=== PATIENT | male | born 1955 | race Caucasian/White ===

== ENCOUNTER → 2019-04-03 14:16 | Outpatient (CLI) | payer OTHER, SELFPAY ==
--- NOTE | 2019-04-03 | DI.RAD.S_ITS ---
PROCEDURE: XR KNEE RT 3V INDICATIONS: M25.561 TECHNIQUE: 3 views of the knee were acquired. COMPARISON: None. FINDINGS: Bones: No fractures or dislocations. No suspicious bony lesions. Mild joint space narrowing and osteophytosis. Soft tissues: Small joint effusion. No suspicious soft tissue calcifications. IMPRESSION: Mild osteoarthritis of the right knee. Small joint effusion. Dictated by: Roberto Rojas M.D. on 04/03/2019 at 15:59 Approved by: Roberto Rojas M.D. on 04/03/2019 at 16:00
== END ==
PROVIDERS: PCP Family Medicine; Referring Provider Family Medicine; Visit Provider Family Medicine
DX: M25.561 Pain in right knee (principal); M17.11 Unilateral primary osteoarthritis, right knee; M25.461 Effusion, right knee
CPT/HCPCS: 73562

== ENCOUNTER → 2019-04-28 06:57 | Outpatient (CLI) | payer OTHER, SELFPAY ==
--- NOTE | 2019-04-28 | DI.CT.S_ITS ---
PROCEDURE: CT ABDOMEN PELVIS W CON INDICATIONS: Unspecified abdominal pain TECHNIQUE: After the administration of oral and intravenous contrast, 5 mm thick sections acquired from the diaphragms to the symphysis. 5 mm thick coronal and sagittal reformats were performed. For radiation dose reduction, the following was used: automated exposure control, adjustment of mA and/or kV according to patient size. COMPARISON: [facility], , ABDOMEN COMPLETE, 06/10/2011, 14:01. FINDINGS: Image quality: Excellent. ABDOMEN: Lung bases: Lung bases are clear. Heart size is normal. Solid organs: Liver is normal in size and enhancement. Gallbladder appears normal. Biliary system is non-dilated. Pancreas enhances normally. Spleen is normal in size and enhancement. No adrenal nodules. Kidneys are normal in size and enhancement, without hydronephrosis. There is a 4 cm dominant left mid posterior renal cortical exophytic cyst. This is simple in character and water in density and requires no followup. Peritoneum and bowel: Stomach, small bowel, and colon loops are normal in caliber and wall thickness. No free fluid or air. Nodes and vessels: No retroperitoneal or mesenteric adenopathy. Aorta and inferior vena cava are normal in caliber. Miscellaneous: No ventral hernias. PELVIS: Genitourinary: Bladder wall thickness is normal. Miscellaneous: No inguinal hernias or adenopathy. Prominent sigmoid diverticulosis without definite acute diverticulitis. There is mild mural thickening of the colon, frequently seen in the setting of extensive diverticulosis. Mild colitis cannot be entirely excluded. Bones: No suspicious bony lesions. No vertebral body compression fractures. IMPRESSION: 1. Prominent diverticulosis involving the sigmoid colon and to a lesser degree the descending colon. Mild colonic wall thickening, frequently seen in the setting of chronic extensive diverticulosis but no definite acute diverticulitis is seen. Mild colitis could be superimposed-please correlate clinically. 2. Water density simple appearing 4 cm exophytic left renal cortical cyst requiring no followup. Dictated by: Ventura Avila M.D. on 04/28/2019 at 12:21 Approved by: Ventura Avila M.D. on 04/28/2019 at 12:24
== END ==
PROVIDERS: PCP Family Medicine; Referring Provider Family Medicine; Visit Provider Family Medicine
DX: R10.9 Unspecified abdominal pain (principal); K57.30 Diverticulosis of large intestine without perforation or abscess without bleeding; N28.1 Cyst of kidney, acquired
CPT/HCPCS: 74177; Q9967

== ENCOUNTER → 2019-10-16 08:09 | Outpatient (CLI) | payer OTHER, SELFPAY ==
[2019-10-17 03:52] LABS: COVID19 Sendout Not Detected (Not Detect)
== END ==
PROVIDERS: PCP Family Medicine; Visit Provider Physician Assistant
DX: Z11.59 Encounter for screening for other viral diseases (principal)
CPT/HCPCS: 87635

== ENCOUNTER 2019-10-19 06:32 | Day surgery (SDC) | payer OTHER, SELFPAY ==
--- NOTE | 2019-10-19 | PATH_ITS ---
[facility] Accession Number: [id number] . 01 Material submitted: . PART A: body - POLYPS AT 15CM PART B: rectum - RECTUM URANUS POLYP . 01 Clinical history: . A: POLYPS AT 15CM X3 . 02 Diagnosis: A. Colon, Polyps at 15 cm, Biopsy: Hyperplastic polyps. . B. Rectum, Polyp, Biopsy: Tubular adenoma. MRV 10/23/2019 0935 Local . 02 Electronically signed: . Tonya Rendon MD, Pathologist NPI- [id number] . 01 Gross description: . A. Received in formalin, labeled with the patient's name, MRN and polyps at 15 cm, are multiple robison-pink irregular fragments of tissue ranging in size from 0.1 cm to 0.6 cm in greatest dimension. The specimen is filtered and entirely submitted in cassette A1. B. Received in formalin, labeled with the patient's name, MRN and rectal near anus polyp, is a 0.6 cm in greatest dimension robison-pink irregular fragment of tissue. The specimen is entirely submitted in cassette B1. ([id number]) /MRV 10/20/2019 1336 Local . 02 Pathologist provided ICD-10: D12.8 . 02 CPT . 690031, [id number] Performed at: 01 [facility] [address] [facility], [place], [place] [id number] MD Jason Zafar MD Phone: [phone] Performed at: 02 [facility] [address] [place], [place] [id number] MD Tonya Rendon MD Phone: [phone]
[2019-10-19 07:11] VITALS: BP 152/105; PULSE 103; RESP 16; TEMP 36.8; O2SAT 95; BMI 28.5
[2019-10-19] MEDS: LACTATED RINGERS 1,000 ML 200 ML IV (07:20)
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
[2019-10-19 07:43] VITALS: BP 167/110; PULSE 92; O2SAT 96
--- NOTE | 2019-10-19 07:43 | SUR.PREOP ---
Enema given, due to small pieces of stool, output after, dark brown but clear. Dr. Lynch aware, did not want 2nd enema. Pt up to BR seconf time, flushed but stated output was the same. BP and HR high doctor is aware of that as well.
[2019-10-19] MEDS: MINERAL OIL 1 EACH ENEMA PR (07:48)
--- NOTE | 2019-10-19 07:53 | PM.PREOP ---
Pre-operative Note COVID-19 COVID-19 status: Negative Result date/Date tested (Pos, Neg/Pending): 10/16/19 Interval Note History & Physical reviewed/Exam performed by Physician: Yes Changes to H&P: No ASA Class (for procedural sedation): I
[2019-10-19] MEDS: fentaNYL 250 MCG/5 ML INJ IV ×6 (08:00→08:11)
[2019-10-19] MEDS: MIDAZOLAM 5 MG/5 ML VIAL IV ×7 (08:00→08:14)
[2019-10-19 08:46] VITALS: BP 185/112; PULSE 100; RESP 20; TEMP 36.9; O2SAT 95
--- NOTE | 2019-10-19 08:46 | P.OP.ENDO_ITS ---
Operative Date/Time/Diagnoses Date of procedure: 10/19/19 Time of procedure: 08:47 Pre-op diagnosis: History of diverticulitis. History of rectal bleeding. Post-op diagnosis: same (Multiple small polyps in the rectosigmoid. Extensive diverticulosis. No tumor.) Procedure & Clinicians Study performed: Colonoscopy with cold biopsy Same procedure as scheduled: Yes Indications: Rectal bleeding. Recent History of diverticulitis. Surgeon: Armin Lynch Procedure Notes SCOAP/Timeout: Performed Procedure in detail: The patient was placed in the left lateral decubitus position and underwent IV sedation directed by the surgeon consisting of fentanyl and Versed. Digital exam was unremarkable. His prostate is flat.. The scope was inserted and advanced through the rectum into the sigmoid, descending, transverse, and ascending colon. There was extensive diverticulosis of the sigmoid colon with tortuosity in mild narrowing. I also noted right- sided diverticulosis.. The cecum was reached identified by the ileocecal valve. The scope was gradually brought out. Multiple very small Polyps were found at the rectosigmoid region at about 15 cm from the anal verge. There was also a small polyp on retroflexed view near the anus which I biopsied and removed.. No other lesions were seen it the retroflexed view. The scope was removed and the patient tolerated the procedure well. Prep was good. Scope withdrawal time: 12 minutes(21 total) Sedation minutes: 43 Findings: diverticulosis (Pancolonic with very extensive disease in the sigmoid colon) and polyp (Multiple very small polypoid lesions at the rectosigmoid and 1 near the anal verge.) Specimen(s): other (Biopsy of polyps) Complications: none Post-procedure Recommendations: Colonscopy in 5 years (If none of the biopsies are adenomatous 10 years would be more appropriate.) and High fiber diet Follow up: as needed Disposition: PACU
[2019-10-19 08:51] VITALS: BP 160/112; PULSE 95; RESP 16; O2SAT 96
[2019-10-19 08:58] VITALS: BP 173/104; PULSE 93; RESP 19; TEMP 37.1; O2SAT 94
--- NOTE | 2019-10-19 09:18 | SUR.PHASEII ---
brought in, d/c instructions discussed, both voiced an understanding. Pt left when ready and left in stable condition.
--- NOTE | 2019-10-19 10:49 | SUR.PHASEII ---
Late entry: Pt's BP high on admit, and while here for exam, instructed pt to take BP and log results and take to his PCP appt he has scheduled for in October.
== END 2019-10-19 09:17 | disposition home or self-care (01) ==
PROVIDERS: PCP Family Medicine; Referring Provider Family Medicine; Visit Provider Specialist
PROC: 0DJD8ZZ Inspection of Lower Intestinal Tract, Via Natural or Artificial Opening Endoscopic (ICD-10-PCS; CPT 45378; principal; 2019-10-19 07:45)
DX: K62.5 Hemorrhage of anus and rectum (principal); K57.30 Diverticulosis of large intestine without perforation or abscess without bleeding; D12.8 Benign neoplasm of rectum; Z72.0 Tobacco use; E03.9 Hypothyroidism, unspecified; M35.3 Polymyalgia rheumatica
CPT/HCPCS: 45380; 99152; 99153; J2250; J3010

== ENCOUNTER → 2019-12-21 10:11 | Outpatient (CLI) | payer OTHER, SELFPAY | PROVIDERS: PCP Family Medicine; Referring Provider Family Medicine; Visit Provider Family Medicine | DX: M81.0 Age-related osteoporosis without current pathological fracture (principal); E07.9 Disorder of thyroid, unspecified; Z72.0 Tobacco use | CPT/HCPCS: 77080 ==

== ENCOUNTER → 2020-05-13 11:14 | Outpatient (CLI) | payer OTHER, SELFPAY ==
[2020-05-13] MEDS: COVID-19 VACC, Ad26(JANSSEN)/PF 0.5 ML IM (11:27)
== END ==
PROVIDERS: PCP Family Medicine; Visit Provider Internal Medicine
DX: Z23 Encounter for immunization (principal)
CPT/HCPCS: 0031A; 91303

== ENCOUNTER → 2021-01-03 14:52 | Outpatient (CLI) | payer OTHER, SELFPAY ==
[2021-01-03] MEDS: COVID-19 VACC #3, MRNA(MOD) 50 MCG/0.25 ML VIAL IM (14:56)
== END ==
PROVIDERS: PCP Family Medicine; Visit Provider Internal Medicine
DX: Z23 Encounter for immunization (principal)
CPT/HCPCS: 0013A; 91301

== ENCOUNTER 2021-02-19 05:31 | Observation (INO) | payer OTHER, SELFPAY ==
[2021-02-19] VITALS (35 sets, daily range): BP systolic 142–193; BP diastolic 85–122; PULSE 61–114; RESP 9–29; TEMP 36.6–37.1; O2SAT 92–99; BMI 25.7; BMI 27.0
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
--- NOTE | 2021-02-19 05:48 | DI.RAD.S_ITS ---
PROCEDURE: XR KNEE RT 3V INDICATIONS: pain TECHNIQUE: 3 views of the knee were acquired. COMPARISON: [facility], CR, XR KNEE RT 3V, 04/03/2019, 14:16. FINDINGS: Bones: No fractures or dislocations. No suspicious bony lesions. Tricompartmental osteoarthritis. Soft tissues: Small nonspecific joint effusion. No suspicious soft tissue calcifications. IMPRESSION: No fracture. No acute osseous lesion. If symptoms and/or clinical suspicion for pathology persists, further assessment with repeat radiographs (7-10 days) or advanced imaging (e.g. CT, MRI or bone scan) should be considered. Dictated by: Nancy Turner MD, PhD on 02/19/2021 at 8:27 Approved by: Nancy Turner MD, PhD on 02/19/2021 at 8:27
[2021-02-19] MEDS: SODIUM CHLORIDE 0.9% 1,000 ML 150 ML IV (06:06)
[2021-02-19 06:08] LABS: Add Manual Diff / Slide Review NO; Basophils Absolute Auto 0 /uL (0-100); Basophils Percent Auto 0.3 % (0-2); Eosinophils Absolute Auto 100 /uL (0-450); Eosinophils Percent Auto 1.4 % (2-4); Hematocrit 44.1 % (41-53); Hemoglobin 15.3 g/dL (13.5-17.5); Lymphocytes Absolute Auto 700 /uL (1100-4500); Lymphocytes Percent Auto 7.6 % (25-40); Mean Corpuscular HGB Conc 34.7 % (30-36); Mean Corpuscular Hemoglobin 31.8 PG (26-34); Mean Corpuscular Volume 91.7 fL (80-100); Monocytes Absolute Auto 600 /uL (0-900); Monocytes Percent Auto 7.2 % (3-14); Neutrophils Absolute Auto 7400 /uL (1500-7000); Neutrophils Percent Auto 83.5 % (50-75); Platelet Count 313 X10^3/uL (150-400); Red Blood Cell Count 4.81 X10^6/uL (4.5-5.9); Red Cell Distribution Width 12.9 % (11.6-14.8); White Blood Cell Count 8.9 X10^3/uL (4.5-11.0)
[2021-02-19 06:19] LABS: Creatine Kinase 139 U/L (55-170)
[2021-02-19 06:20] LABS: Lactate (Lactic Acid) 1.1 mmol/L (0.7-2.1)
[2021-02-19 06:22] LABS: Acetaminophen < 10 ug/mL (10-30); Alanine Aminotransferase 18 IU/L (<50); Albumin 4.7 g/dL (3.5-5.0); Albumin Globulin Ratio 1.5 (1.0-2.8); Alkaline Phosphatase 92 U/L (38-126); Aspartate Aminotransferase 21 IU/L (17-59); BUN Creatinine Ratio 30.2 (6-22); Bilirubin Total 0.5 mg/dL (0.2-1.3); Blood Urea Nitrogen 29 mg/dL (9-20); Calcium 9.6 mg/dL (8.4-10.2); Carbon Dioxide 21 mmol/L (22-32); Chloride 109 mmol/L (98-107); Estimated Glomerular Filt Rate > 60.0 mL/min (>60); Ethanol (ETOH) < 10 mg/dL; Globulin 3.1 g/dL (1.7-4.1); Glucose 146 mg/dL (80-110); HEMOLYSIS < 15 (0-50); Potassium 3.6 mmol/L (3.4-5.1); Salicylate < 1.0 mg/dL (<20); Sodium 139 mmol/L (137-145); Total Protein 7.8 g/dL (6.3-8.2)
[2021-02-19 06:33] LABS: Troponin I < 0.012 ng/mL (0.01-0.034)
[2021-02-19 06:35] LABS: CKMB % Relative Index 0.5 % (1.5-5.0); Creatine Kinase MB 0.64 ng/mL (<2.37)
[2021-02-19 06:37] LABS: Procalcitonin 0.06 ng/mL (<0.5)
[2021-02-19 06:38] LABS: Prolactin 12.2 ng/mL (3.7-17.9)
[2021-02-19 06:58] LABS: Thyroid Stimulating Hormone 12.4 uIU/mL (0.47-4.68)
[2021-02-19 07:15] LABS: Appearance Urine UA CLEAR; Bilirubin Urine UA NEGATIVE (NEGATIVE); Color Urine UA YELLOW; Glucose Urine UA TRACE g/dL (Negative); Ketones Urine UA NEGATIVE (NEGATIVE); Leukocyte Esterase Urine UA NEGATIVE (NEGATIVE); Nitrite Urine UA NEGATIVE (Negative); Occult Blood Urine UA 1+ (Negative); Protein Urine UA 2+ (Negative); Specific Gravity Urine UA >=1.030 (1.000-1.035); Urobilinogen Urine UA 0.2 E.U./dL (0.2)
[2021-02-19 07:21] LABS: UR Morphine/Opiate cutoff 300 Negative (Negative); Ur Creatinine Normal (Normal); Ur Specific Gravity Normal (Normal); Urine Amphetamines Negative (Negative); Urine Barbiturates Negative (Negative); Urine Benzodiazepines Negative (Negative); Urine Cocaine Negative (Negative); Urine MDMA Negative (Negative); Urine Methadone Negative (Negative); Urine Methamphetamines Negative (Negative); Urine Oxycodone Negative (Negative); Urine Phencyclidine Negative (Negative); Urine Tetrahydrocannabinol Negative (Negative); Urine Tricyclic Antidepressant Negative (Negative); Urine pH Normal (Normal)
[2021-02-19 07:35] LABS: Bacteria Urine Occasional (0-1); Culture Indicated Urine Cult Not Indicated; Hyaline Casts Urine 0-1/LPF; RBC Urine 0-1/HPF (0-5/HPF); WBC Urine 0-1/HPF (0-5/HPF)
--- NOTE | 2021-02-19 07:51 | DI.CT.S_ITS ---
PROCEDURE: CT ANGIO HEAD AND NECK INDICATIONS: acute neurologic changes, gait unsteady, acute onset TECHNIQUE: After the administration of intravenous contrast, 1 mm thick sections acquired from the aortic arch through the [place]. Post-contrast 4.5 mm thick sections then re-acquired from the foramen magnum to the vertex. 3-dimensional okholqi-drxtapizq-wujuhqlusa (MIP) and/or volume rendering reformats were acquired of the central intracranial vasculature and neck separately. COMPARISON: [facility], CT, CT HEAD/BRAIN WO CON, 02/19/2021, 5:46. FINDINGS: Image quality: Excellent. BRAIN: CSF spaces: Ventricles are normal in size and shape. Basal cisterns are patent. No extra-axial fluid collections. Brain: No midline shift. No intracranial bleeds or masses. Horton-white matter interface appears intact. Skull and face: Calvarium and facial bones appear intact, without suspicious lesions. Orbits appear normal. Sinuses: Sinuses and mastoids are clear. HEAD CT ANGIOGRAPHY: Anterior circulation: There is mild diffuse calcific stenosis of the bilateral cavernous internal carotid arteries. There is mild narrowing of the right distal cavernous and proximal supraclinoid internal carotid artery. The flow within the paired anterior cerebral arteries is normal and symmetric. The flow within the middle cerebral arteries is normal and symmetric. The anterior communicating artery is seen, and appears fenestrated No aneurysms are seen. Posterior circulation: Visualized portions of the vertebral arteries demonstrate normal caliber, and join to form a normal appearing basilar artery. There is moderate narrowing of the P1 segment of the left posterior cerebral artery. Near origin of the left posterior cerebral artery. Flow within the posterior cerebral arteries is normal and symmetric. No aneurysms are seen. NECK CT ANGIOGRAPHY: Carotid system: The great vessels demonstrate a conventional anatomy as they arise from the aortic arch. The origins of the common carotid arteries appear patent. The common carotid arteries demonstrate normal caliber and courses. The bifurcation regions are both widely patent. Mild, less than 10% origin stenosis of the bilateral internal carotid arteries. Posterior circulation: Moderate right and mild left vertebral artery origin stenosis is present. The more superior extracranial portions of both vertebral arteries also demonstrate normal courses and calibers. They join to form a normal appearing basilar artery. Soft tissues: Visualized neck soft tissues demonstrate no suspicious abnormalities. Bones: No suspicious bony lesions. Visualized cervical spine appears normally aligned. IMPRESSION: 1. No acute process involving the arterial tree of the head and neck. 2. Narrowing of the carotid , vertebral, and posterior cerebral arteries as described above. Any quantitative measurements of stenosis were performed using NASCET criteria. Dictated by: Golden Santana M.D. on 02/19/2021 at 8:23 Approved by: Golden Santana M.D. on 02/19/2021 at 8:29
--- NOTE | 2021-02-19 08:59 | DI.MRI.S_ITS ---
PROCEDURE: MR HEAD/BRAIN WO/W CON INDICATIONS: suspected posterior circulation stroke, hypertensive crisis TECHNIQUE: Noncontrast axial T1 spin echo, axial T2 fast spin echo, sagittal and axial FLAIR, coronal T2 fast spin echo, axial gradient echo, axial diffusion and ADC through the brain. After the administration of contrast, axial and coronal T1 spin echo with fat saturation through the brain. COMPARISON: [facility], CT, CT ANGIO HEAD AND NECK, 02/19/2021, 7:44. FINDINGS: Image quality: Excellent. CSF spaces: Basal cisterns are patent. No extra-axial fluid collections. Ventricles are normal in size and shape. Brain: No midline shift. No intracranial bleeds or masses. No abnormal intracranial enhancement. There is cerebral volume loss for age. There is periventricular white matter chronic small vessel ischemic change. The brainstem appears normal. Diffusion-weighted images demonstrate no acute ischemic insults. No chronic ischemic insults. Normal intravascular flow voids are present. Skull and face: Calvarial marrow is normal in signal. Orbits appear normal. Sinuses: Sinuses and mastoids appear clear. IMPRESSION: 1. Mild volume loss and small vessel ischemic disease. 2. No acute process. No recent infarct. Dictated by: Golden Santana M.D. on 02/19/2021 at 11:00 Approved by: Golden Santana M.D. on 02/19/2021 at 11:01
[2021-02-19] MEDS: NICARDIPINE 25 MG in SODIUM CHLORIDE 0.9% 240 ML 50 ML IV (09:18)
[2021-02-19] MEDS: HYDROCORTISONE 100 MG/2 ML VIAL IV (09:56)
[2021-02-19 10:46] LABS: COVID19 - ADMIT (NP swab/PCR) Negative (Negative)
[2021-02-19] MEDS: AMLODIPINE 5 MG TABLET PO ×2 (11:51→14:14)
[2021-02-19] MEDS: carisoprodoL 350 MG TABLET PO (12:32)
[2021-02-19] MEDS: predniSONE 5 MG TABLET 10 MG PO (12:40)
--- NOTE | 2021-02-19 13:58 | DI.ECHO.S_ITS ---
[facility] +---------+ : : [address] : [place] : : : : [id number] : : : : Phone: [phone] Echocardiogram Report + + :Name: CHUCK GROSS Study Date: 02/19/2021 Height: 71 in : [facility] ReadingLocation: Weight: 184 lb : : Gender: Male BSA: 2.0 m2 : :: 1955 Age: 65 yrs BP: 154/91 mmHg: :Reason For Study: SYNCOPE : :Ordering Physician: LOURDES, : :SHANNA Performed By: Cari Chauhan : :Referring: SHANNA FREED : + + Interpretation Summary The ejection fraction is estimated to be 55-60%. There is no significant valvular heart disease. Procedure: A two-dimensional transthoracic echocardiogram with color flow and Doppler was performed. The study quality was technically adequate. There is no prior echocardiogram noted for this patient. The patient was in sinus rhythm with heart rates between 64-74 bpm during the exam. Left Ventricle: The left ventricle is normal in size and wall thickness. The ejection fraction is estimated to be 55-60%. Left ventricular wall motion is normal. Diastolic parameters suggest a relaxation abnormality of the left ventricle, consistent with probable normal filling pressures. Right Ventricle: The right ventricle is normal in size and function. Atria: Both atria are normal in size. There is no Doppler evidence for an interatrial shunt. Mitral Valve: The mitral valve is normal in structure and function. There is trace mitral regurgitation. Aortic Valve: The aortic valve is trileaflet. The aortic valve opens well. There is no aortic valve stenosis. No aortic regurgitation is present. Tricuspid Valve: The tricuspid valve is normal in structure and function. There is trace tricuspid regurgitation. Pulmonic Valve: The pulmonic valve leaflets are thin and pliable; valve motion is normal. There is trace pulmonic regurgitation. Great Vessels: The aortic root is normal size. The ascending aorta is mildly enlarged. The IVC is dilated (diameter is greater than 2.1 cm) yet it collapses greater than 50% with a sniff. This suggests a right atrial pressure of 8 mm Hg. Pericardium/ Pleura There is no pericardial effusion. There is no pleural effusion. MMode/2D Measurements & Calculations LVIDd: 4.9 cm LVOT diam: 2.0 cm LVIDs: 3.6 cm Ao root diam: 3.3 cm FS: 27.1 % asc Aorta Diam: 3.8 cm IVSd: 1.0 cm Ao Arch Diam (Prox Trans): 3.4 cm LVPWd: 0.99 cm LV [place]. diameter/BSA (cm/m^2): 2.4 LV sys. diameter/BSA (cm/m^2): 1.7 LA A2 area: 19.0 cm2 RA long axis: 5.7 cm LA A4 area: 20.8 cm2 RA area: 21.0 cm2 LA length (vol): 6.0 cm RA vol: 65.7 ml LA vol: 56.1 ml RA : 32.3 ml/m2 LA vol index: 27.5 ml/m2 IVC diam: 2.2 cm RVD1 (basal): 3.7 cm TAPSE: 2.1 cm Doppler Measurements & Calculations Ao V2 max: 146.1 cm/sec LVOT Max Benny: 95.8 cm/sec Ao V2 mean: 102.6 cm/sec LV V1 max P.7 mmHg Ao max P.5 mmHg LV V1 VTI: 21.4 cm Ao mean P.6 mmHg TANNER(I,D): 2.2 cm2 Ao V2 VTI: 32.8 cm TANNER(V,D): 2.2 cm2 sev ratio: 0.65 TANNER indexed to BSA (cm^2/m^2): 1.1 MV E max benny: 63.0 cm/sec PA V2 max: 131.8 cm/sec MV A max benny: 68.7 cm/sec PA V2 mean: 73.8 cm/sec MV E/A: 0.92 PA mean P.8 mmHg Med Peak E' Benny: 6.5 cm/sec PA pr(Accel): 8.8 mmHg E/E' med: 9.6 Lat Peak E' Benny: 10.2 cm/sec E/E' lat: 6.2 E/e' average: 7.9 MV dec time: 0.31 sec SV(LVOT): 70.7 ml Reading Physician:09:06 AM
--- NOTE | 2021-02-19 14:08 | PC.NURSE ---
spoke w/ Dr. Britt who ordered additional 5 mg of amlodipine to complete 10 mg dose.
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
[2021-02-19] MEDS: ACETAMINOPHEN 325 MG TABLET 650 MG PO (21:44)
[2021-02-19] MEDS: buPROPion 75 MG TABLET 150 MG PO (21:44)
--- NOTE | 2021-02-19 23:01 | PC.NURSE ---
Patient reported intermittent headache, contacted Dr. Britt and received T.O. for Tylenol 650mg every 6 hours PRN, and Hydrocodone 5/325 1 tab Q6 hours PRN. Tylenol effective for headache.
[2021-02-20] VITALS: BP 127/80; PULSE 66; RESP 16; TEMP 36.9; O2SAT 95
[2021-02-20] MEDS: LEVOTHYROXINE 150 MCG TABLET PO (05:14)
[2021-02-20 05:15] VITALS: BP 139/78; PULSE 65; RESP 16; TEMP 36.8; O2SAT 94
[2021-02-20 07:22] LABS: Add Manual Diff / Slide Review NO; Basophils Absolute Auto 0 /uL (0-100); Basophils Percent Auto 0.4 % (0-2); Eosinophils Absolute Auto 200 /uL (0-450); Eosinophils Percent Auto 2.1 % (2-4); Hemoglobin 14.9 g/dL (13.5-17.5); Lymphocytes Absolute Auto 1200 /uL (1100-4500); Lymphocytes Percent Auto 15.8 % (25-40); Mean Corpuscular HGB Conc 34.7 % (30-36); Mean Corpuscular Hemoglobin 31.9 PG (26-34); Mean Corpuscular Volume 92.1 fL (80-100); Monocytes Absolute Auto 700 /uL (0-900); Monocytes Percent Auto 8.9 % (3-14); Neutrophils Absolute Auto 5600 /uL (1500-7000); Neutrophils Percent Auto 72.8 % (50-75); Platelet Count 290 X10^3/uL (150-400); Red Blood Cell Count 4.67 X10^6/uL (4.5-5.9); Red Cell Distribution Width 13.2 % (11.6-14.8); White Blood Cell Count 7.7 X10^3/uL (4.5-11.0)
[2021-02-20 07:38] LABS: Alanine Aminotransferase 16 IU/L (<50); Albumin 4.3 g/dL (3.5-5.0); Albumin Globulin Ratio 1.4 (1.0-2.8); Alkaline Phosphatase 77 U/L (38-126); Aspartate Aminotransferase 24 IU/L (17-59); BUN Creatinine Ratio 22.4 (6-22); Bilirubin Total 0.6 mg/dL (0.2-1.3); Blood Urea Nitrogen 22 mg/dL (9-20); Calcium 9.3 mg/dL (8.4-10.2); Carbon Dioxide 22 mmol/L (22-32); Chloride 107 mmol/L (98-107); Estimated Glomerular Filt Rate > 60.0 mL/min (>60); Globulin 3.1 g/dL (1.7-4.1); Glucose 101 mg/dL (80-110); HEMOLYSIS < 15 (0-50); Potassium 3.4 mmol/L (3.4-5.1); Sodium 137 mmol/L (137-145); Total Protein 7.4 g/dL (6.3-8.2)
[2021-02-20 07:56] VITALS: BP 180/95; PULSE 76; RESP 18; TEMP 36.9
[2021-02-20] MEDS: buPROPion 75 MG TABLET 150 MG PO (08:02)
[2021-02-20] MEDS: predniSONE 5 MG TABLET 10 MG PO (08:02)
[2021-02-20] MEDS: AMLODIPINE 5 MG TABLET 10 MG PO (08:03)
[2021-02-20] MEDS: ASPIRIN EC 81 MG TABLET PO (08:03)
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
[2021-02-20 08:56] VITALS: BP 147/83; PULSE 67; RESP 16; O2SAT 95
[2021-02-20] MEDS: METOPROLOL ER 50 MG TABLET PO (09:50)
[2021-02-20] MEDS: SODIUM CHLORIDE 0.9% FLUSH 10 ML IV (09:50)
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
--- NOTE | 2021-02-20 10:37 | OT.IP.TRT ---
Occupational Therapy Treatment Note M2 OT-IP Current Condition Start: 02/20/21 10:30 Freq: Status: Active Protocol: Document 02/20/21 10:30 [facility] (Rec: 02/20/21 10:37 [facility] [id number]) Occupational Therapy Current Condition Current Condition Treatment Diagnosis TIA Diagnosis Onset Date 02/19/21 M3 OT- IP Subjective and Pain Start: 02/20/21 10:30 Freq: Status: Active Protocol: Document 02/20/21 10:30 [facility] (Rec: 02/20/21 10:37 [facility] [id number]) OT- Subjective Occupational Therapy Visit Type Type Treatment Note Visit Start Time 10:15 Visit Stop Time 10:24 Total Visit Minutes 9 Occupational Therapy Visit Comments Patient Comments Pt feels back to baseline. Pt agreed to do cognitive assessment. Patient/Caregiver Goals TO go home. OT Pain Assessment Pain When Pain Assessed At Rest Pain Present Pain Present Denied Pain M6 OT- IP Functional Cognition Start: 02/20/21 10:30 Freq: Status: Active Protocol: Document 02/20/21 10:30 [facility] (Rec: 02/20/21 10:37 [facility] [id number]) Cognitive Factors Limiting Selfcare Function Cognitive Ability Level of Alertness Alert Patient Orientation Name,Age,Birthday,Month,Date, Year,Day of Week,Place, Situation Attention Span Ability Capable of Focused Attention, Capable of Sustained Attention Ability to Follow Commands Able to Follow Multi-Step Commands Memory Description No Deficits Noted Safety Awareness No Deficits Noted Problem Solving Ability No deficits Noted Executive Function Ability No Deficits Noted Cognitive Comments Cognitive Assessment Comments Pt scored 68 seconds on [place] Making Part B which implies normal but not perfect for speed of processing, task switching, mental flexibility, executive functioning, and visual attention. Pt intact for cognitive needs. M7 OT- IP Mobility and Balance Start: 02/20/21 10:30 Freq: Status: Active Protocol: Document 02/20/21 10:30 [facility] (Rec: 02/20/21 10:37 [facility] [id number]) OT- Balance Assessment Sitting Balance and Reactions Static Sitting Balance Ability Normal Dynamic Sitting Balance Ability Normal Standing Balance and Reactions Static Standing Balance Ability Normal Pt appears back to baseline for needs and has good safety awareness to sit for LB dressing needs as needed. Pt states to start using pill organizer and write down his medications for now on. In addition pt states to have his present with him before driving again. Pt has a supportive to assist pt at home. Pt to go home with his when medically stable. No further OT needs, discharge pt from OT services.
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
[2021-02-20] MEDS: POTASSIUM CHLORIDE 20 MEQ TAB 40 MEQ PO (12:05)
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
== END 2021-02-20 15:00 | disposition home or self-care (01) ==
LOC: ED 09:49 → AC 11:36
PROVIDERS: Emergency Medicine; Admitting Provider Family Medicine; Emergency Provider Emergency Medicine; PCP Family Medicine; Referring Provider Emergency Medicine; Visit Provider Family Medicine
DX: M79.661 Pain in right lower leg (principal); M35.3 Polymyalgia rheumatica; I10 Essential (primary) hypertension; E03.9 Hypothyroidism, unspecified; I16.9 Hypertensive crisis, unspecified; F17.210 Nicotine dependence, cigarettes, uncomplicated; V48.0XXA Car driver injured in noncollision transport accident in nontraffic accident, initial encounter; Y92.410 Unspecified street and highway as the place of occurrence of the external cause; Z20.822 Contact with and (suspected) exposure to COVID-19
CPT/HCPCS: 36415; 70450; 70496; 70498; 70553; 71045; 72125; 73562; 74177; 80053; 80305; 80320; 80329; 81001; 81003; 82550; 82553; 83605; 84145; 84146; 84443; 84484; 85025; 87040; 87635; 93005; 93306; 96361; 96365; 96366; 96375; 97129; 97161; 97530; 99285; C9803; G0378; G0480; J1720

== ENCOUNTER → 2021-03-21 15:59 | Outpatient (CLI) | payer OTHER, SELFPAY ==
[2021-02-19 15:15] VITALS: BMI 27.0
--- NOTE | 2021-03-21 | DI.RAD.S_ITS ---
PROCEDURE: XR CHEST 2V INDICATIONS: COUGH TECHNIQUE: 2 views of the chest were acquired. COMPARISON: [facility], CR, XR CHEST 1V, 02/19/2021, 5:31. FINDINGS: Surgical changes and devices: None. Lungs and pleura: Mildly prominent interstitial markings. No consolidation, pleural effusions or pneumothorax. Mediastinum: Mediastinal contours are normal. The cardiac silhouette is upper limits of normal. Bones and chest wall: No suspicious bony abnormalities. Soft tissues appear unremarkable. IMPRESSION: Mildly prominent interstitial markings, which may reflect chronic change or pulmonary edema. Dictated by: Carson Shea [facility] Interpreted: Chucho Callahan MD on 03/21/2021 at 16:15 Transcribed by: PRESLEY on 03/21/2021 at 16:16 Approved by: Chucho Callahan M.D. on 03/21/2021 at 19:58
== END ==
PROVIDERS: PCP Family Medicine; Referring Provider Family Medicine; Visit Provider Family Medicine
DX: R05.9 Cough, unspecified (principal)
CPT/HCPCS: 71046

== ENCOUNTER → 2021-04-16 12:24 | Outpatient (CLI) | payer OTHER, SELFPAY ==
[2021-02-19 15:15] VITALS: BMI 27.0
--- NOTE | 2021-04-16 12:36 | DI.CT.S_ITS ---
PROCEDURE: CT CHEST W CON INDICATIONS: Chronic cough TECHNIQUE: After the administration of intravenous contrast, 5 mm thick sections acquired from the pulmonary apices to the posterior costophrenic angles. 1 mm axial lung, 5 mm thick coronal and sagittal reformats and 7 mm axial MIP were acquired. For radiation dose reduction, the following was used: automated exposure control, adjustment of mA and/or kV according to patient size. COMPARISON: [facility], CR, XR CHEST 2V, 03/21/2021, 15:52. [facility], CT, CT ABDOMEN PELVIS W CON, 02/20/2021, 8:32. FINDINGS: Image quality: Excellent. Lungs and pleura: Biapical scarring is seen. A few scattered scarring/atelectasis in periphery of bilateral lung antoine are seen. No acute air space opacities. No pleural effusions or pneumothorax. Central and peripheral airways are patent and normal in caliber. Mediastinum: Heart size is normal. No pericardial effusion. No mediastinal or hilar adenopathy by size criteria. Thoracic aorta and central pulmonary arteries are normal in size. Esophagus is normal in caliber. No hiatal hernia. Bones and chest wall: No suspicious bony lesions. No vertebral body compression fractures. No axillary or supraclavicular adenopathy by size criteria. Thyroid gland is within normal limits. Abdomen: Visualized upper abdominal solid organs appear normal. Upper abdominal bowel loops are normal in caliber. IMPRESSION: 1. Biapical scarring. Scattered scarring/atelectasis in periphery of bilateral lung antoine. No focal infiltrate, pleural effusion or pneumothorax. Airway is patent. 2. No mediastinal or hilar lymphadenopathy. Dictated by: Aubrey Li M.D. on 04/16/2021 at 13:14 Approved by: Aubrey Li M.D. on 04/16/2021 at 13:17
== END ==
PROVIDERS: PCP Family Medicine; Referring Provider Family Medicine; Visit Provider Family Medicine
DX: R05.3 Chronic cough (principal); J98.4 Other disorders of lung
CPT/HCPCS: 71260

== ENCOUNTER → 2021-05-15 08:54 | Outpatient (CLI) | payer OTHER, SELFPAY ==
[2021-02-19 15:15] VITALS: BMI 27.0
[2021-05-15 10:21] LABS: COVID19 -Nasal RAPID Negative (Negative)
== END ==
PROVIDERS: PCP Family Medicine; Referring Provider Internal Medicine; Visit Provider Internal Medicine
DX: Z20.822 Contact with and (suspected) exposure to COVID-19 (principal)
CPT/HCPCS: 87635; C9803

== ENCOUNTER → 2021-05-16 06:39 | Outpatient (CLI) | payer OTHER, SELFPAY ==
[2021-02-19 15:15] VITALS: BMI 27.0
--- NOTE | 2021-05-21 10:42 | P.PFT.S_ITS ---
Pulmonary Function Test Referral & Results Date Patient Seen: 05/16/21 Requesting provider: Santosh Craven Results: The spirometry demonstrates an FVC of 4.3 L which is 89% of predicted. The FEV1 was measured at 2.97 L which is 81% of predicted. The FEV1/FVC ratio was 68 which is 91% of predicted. Following the administration of bronchodilator there was 11% improvement in FEV1 and a 53% improvement in FEF 25-75% Lung volumes show an SVC of 4.56 L which is 92% of predicted. The diffusing capacity was measured at 23.21 which is 66% of predicted. No hemoglobin value was provided, so no correction for potential anemia could be made, if appropriate. The maximum voluntary ventilation was normal Interpretation: This study demonstrates perhaps very mild obstructive lung disease based on reduction FEV1 and minimal improvement following bronchodilator as above. She however FEV1/FVC ratio remains normal Lung volumes are normal Diffusing capacity is minimally reduced suggesting the presence of disease at the capillary alveolar level unless patient is anemic as above Clinical correlation suggested Compared to PFTs performed in October 2009, current study is essentially unch anged. There was more of a benefit following bronchodilator on current on previous study No diffusing capacity was performed on previous study Charges Tests/bronchodilator: Complete PFT: with bronchodilator Tests: Yes Diffusing capacity
== END ==
PROVIDERS: PCP Family Medicine; Referring Provider Family Medicine; Visit Provider Family Medicine
DX: R05.3 Chronic cough (principal)
CPT/HCPCS: 94060; 94726; 94729

== ENCOUNTER → 2021-07-31 11:46 | Outpatient (CLI) | payer MEDICARE, OTHER, SELFPAY ==
[2021-02-19 15:15] VITALS: BMI 27.0
--- NOTE | 2021-07-31 | DI.RAD.S_ITS ---
PROCEDURE: XR ANKLE LT MIN 3V INDICATIONS: Pain in left ankle and joints of left foot started 2 hours ago TECHNIQUE: 3 views of the ankle were acquired. COMPARISON: None. FINDINGS: Bones: No fractures or dislocations. Ankle mortise is normally aligned. No suspicious bony lesions. Soft tissues: No tibiotalar joint effusion. Achilles tendon appears normal. IMPRESSION: No acute finding. No imaging explanation for or ankle pain. Dictated by: Trevor Salcedo M.D. on 07/31/2021 at 15:14 Approved by: Trevor Salcedo M.D. on 07/31/2021 at 15:15
== END ==
PROVIDERS: PCP Family Medicine; Referring Provider Family Medicine; Visit Provider Family Medicine
DX: M25.572 Pain in left ankle and joints of left foot (principal)
CPT/HCPCS: 73610

== ENCOUNTER → 2021-09-25 15:28 | Outpatient (CLI) | payer MEDICARE, OTHER, SELFPAY ==
[2021-02-19 15:15] VITALS: BMI 27.0
--- NOTE | 2021-09-25 | DI.CT.S_ITS ---
PROCEDURE: CT SINUS SCREEN WO CON INDICATIONS: Chronic maxillary sinusitis TECHNIQUE: Noncontrast 3.0 mm axial images acquired from the frontal sinuses to the mid-sella, with coronal and sagittal reformats. For radiation dose reduction, the following was used: automated exposure control, adjustment of mA and/or kV according to patient size. COMPARISON: [facility], CT, SINUS SCREEN WO CONTRAST, 01/27/2017, 11:13. [facility], CT, CT HEAD/BRAIN WO CON, 02/19/2021, 5:46. [facility], CT, CT ANGIO HEAD AND NECK, 02/19/2021, 7:44. FINDINGS: Image quality: Excellent. Maxillary Sinuses: No bony remodeling or destruction. Sinuses are clear. Ethmoid Air Cells: No bony remodeling or destruction. Sinuses are clear. Sphenoid Sinuses: No bony remodeling or destruction. Sinuses are clear. Frontal Sinuses: No bony remodeling or destruction. Sinuses are clear. Ostiomeatal Complexes: Ostiomeatal complexes are patent. No Krzysztof cells. Miscellaneous: Visualized intra-orbital contents are normal. No frida bullosa or paradoxical turbinate curvature. No nasal septal deviation. IMPRESSION: No significant active paranasal sinus disease is seen. Dictated by: Aroldo Colon M.D. on 09/25/2021 at 15:39 Approved by: Aroldo Colon M.D. on 09/25/2021 at 15:40
== END ==
PROVIDERS: PCP Family Medicine; Referring Provider Family Medicine; Visit Provider Family Medicine
DX: J32.0 Chronic maxillary sinusitis (principal); R05.3 Chronic cough
CPT/HCPCS: 70486

== ENCOUNTER → 2021-11-08 10:55 | Outpatient (CLI) | payer MEDICARE, OTHER, SELFPAY ==
[2021-02-19 15:15] VITALS: BMI 27.0
== END ==
PROVIDERS: PCP Family Medicine; Visit Provider Nurse Practitioner Family
DX: L08.9 Local infection of the skin and subcutaneous tissue, unspecified (principal)
CPT/HCPCS: 87070; 87075; 87077; 87186; 87205

== ENCOUNTER 2022-03-15 12:02 | Emergency (ER) | payer MEDICARE, OTHER, SELFPAY ==
[2021-02-19 15:15] VITALS: BMI 27.0
[2022-03-15] VITALS (10 sets, daily range): BP systolic 121–162; BP diastolic 70–90; PULSE 69–110; RESP 16–26; TEMP 37; O2SAT 91–98; BMI 30.1
--- NOTE | 2022-03-15 12:16 | DI.RAD.S_ITS ---
PROCEDURE: XR CHEST 1V INDICATIONS: chest pain TECHNIQUE: One view of the chest was acquired. COMPARISON: [facility], , XR CHEST 1V, 02/19/2021, 5:31. [facility], , US PERIPH VENOUS LOW EXTREM BI, 03/15/2022, 12:54. [facility], , XR CHEST 2V, 03/21/2021, 15:52. FINDINGS: Surgical changes and devices: None. Lungs and pleura: An incomplete inspiratory result is noted, causing a crowded appearance to the lung markings. No focal infiltrates are seen. On this semiupright study, no large pneumothorax or significant pleural effusions are seen. Mediastinum: Mediastinal contours appear normal. Heart size is normal. Bones and chest wall: Age-appropriate bony degenerative changes are seen. No suspicious bony lesions. Overlying soft tissues appear unremarkable. IMPRESSION: Portable chest within normal limits. Dictated by: Aroldo Colon M.D. on 03/15/2022 at 12:28 Approved by: Aroldo Colon M.D. on 03/15/2022 at 12:30
--- NOTE | 2022-03-15 12:31 | DI.US.S_ITS ---
PROCEDURE: US PERIPH VENOUS LOW EXTREM BI INDICATIONS: POSSIBLE DVT TECHNIQUE: Real-time imaging, as well as color and pulse Doppler interrogation, were performed of the deep veins of both legs from the inguinal ligament to the popliteal fossa. COMPARISON: None. FINDINGS: Right: The common femoral, femoral and popliteal veins are normally compressible, and free of intraluminal thrombus. Color and pulse Doppler demonstrate normal phasic intravascular flow. There is normal augmentation response to distal compression maneuver. Left: The common femoral, femoral and popliteal veins are normally compressible, and free of intraluminal thrombus. Color and pulse Doppler demonstrate normal phasic intravascular flow. There is normal augmentation response to distal compression maneuver. IMPRESSION: No sonographic evidence of deep venous thrombosis in the right or left lower extremity. Approved by: Oscar Vásquez M.D. on 03/15/2022 at 13:17
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
[2022-03-15 13:24] LABS: Add Manual Diff / Slide Review NO; Basophils Absolute Auto 0 /uL (0-100); Basophils Percent Auto 0.2 % (0-2); Eosinophils Absolute Auto 100 /uL (0-450); Eosinophils Percent Auto 1.3 % (2-4); Hematocrit 40.2 % (41-53); Hemoglobin 13.8 g/dL (13.5-17.5); Lymphocytes Absolute Auto 500 /uL (1100-4500); Lymphocytes Percent Auto 5.5 % (25-40); Mean Corpuscular HGB Conc 34.3 % (30-36); Mean Corpuscular Hemoglobin 31.2 PG (26-34); Mean Corpuscular Volume 90.9 fL (80-100); Monocytes Absolute Auto 600 /uL (0-900); Monocytes Percent Auto 5.9 % (3-14); Neutrophils Absolute Auto 8300 /uL (1500-7000); Neutrophils Percent Auto 87.1 % (50-75); Platelet Count 297 X10^3/uL (150-400); Red Blood Cell Count 4.42 X10^6/uL (4.5-5.9); Red Cell Distribution Width 13.8 % (11.6-14.8); White Blood Cell Count 9.5 X10^3/uL (4.5-11.0)
[2022-03-15 13:26] LABS: Alanine Aminotransferase 23 IU/L (<50); Alkaline Phosphatase 72 U/L (38-126); Aspartate Aminotransferase 32 IU/L (17-59); Bilirubin Total 0.5 mg/dL (0.2-1.3); Blood Urea Nitrogen 28 mg/dL (9-20); Calcium 8.2 mg/dL (8.4-10.2); Carbon Dioxide 24 mmol/L (22-32); Chloride 106 mmol/L (98-107); Creatine Kinase 376 U/L (55-170); Estimated Glomerular Filt Rate 52 mL/min (>60); Glucose 144 mg/dL (80-110); Lipase 51 U/L (23-300); Magnesium 2.1 mg/dL (1.6-2.3); Potassium 3.5 mmol/L (3.4-5.1); Sodium 139 mmol/L (137-145); Total Protein 6.9 g/dL (6.3-8.2)
[2022-03-15 13:27] LABS: PTT Partial Thromboplastin Tim 30 SECONDS (26-36)
[2022-03-15 13:30] LABS: C-Reactive Protein Quant 2.1 mg/dL (<1.0)
[2022-03-15 13:33] LABS: D Dimer 525 ng/ml (<500)
[2022-03-15 13:35] LABS: NT-proBNP (BNP-Adult 18+) 24 pg/mL (<125)
[2022-03-15 13:37] LABS: Troponin I < 0.012 ng/mL (0.01-0.034)
[2022-03-15 13:41] LABS: CKMB % Relative Index 0.9 % (1.5-5.0); Creatine Kinase MB 3.49 ng/mL (<2.37)
[2022-03-15 13:43] LABS: Erythrocyte Sedimentation Rate 8 MM/HR (0-15)
[2022-03-15 13:45] LABS: Lactate (Lactic Acid) 1.3 mmol/L (0.7-2.1)
[2022-03-15 13:48] LABS: COVID-19 CEPHEID 4-PLEX PCR Negative (Negative); Influenza A - CEPHEID Flu A NEGATIVE (NEGATIVE); Influenza B - CEPHEID Flu B NEGATIVE (NEGATIVE); Respiratory Syncytial Virus Negative (Negative)
[2022-03-15] MEDS: ACETAMINOPHEN 325 MG TABLET 650 MG PO (14:25)
[2022-03-15] MEDS: predniSONE 20 MG TABLET 40 MG PO (14:25)
[2022-03-15] MEDS: SODIUM CHLORIDE 0.9% 1,000 ML 1000 ML IV (14:26)
[2022-03-15 15:32] LABS: Ictotest Urine Negative (Negative)
[2022-03-15 15:40] LABS: Bacteria Urine Occasional (0-1); Mucus Urine 2+ (Negative); RBC Urine 0-1/HPF (0-5/HPF)
[2022-03-15 15:41] LABS: Culture Indicated Urine Cult Not Indicated; Squamous Epithelial Cell Urine 0-1 /HPF (0-5/HPF); Transitional Epi Cells Urine 0-1/HPF (0-5/HPF); WBC Urine 1-5/HPF (0-5/HPF)
[2022-03-20 15:21] LABS: Albumin 4.2 g/dL (3.5-5.0); Albumin Globulin Ratio 1.6 (1.0-2.8); Globulin 2.7 g/dL (1.7-4.1)
[2022-03-20 15:53] LABS: HEMOLYSIS 58 (0-50)
== END 2022-03-15 14:20 | disposition home or self-care (01) ==
PROVIDERS: Emergency Medicine; Emergency Provider Nurse Practitioner Critical Care Medicine; PCP Family Medicine
DX: R60.0 Localized edema (principal); R50.9 Fever, unspecified; R07.9 Chest pain, unspecified; Z20.822 Contact with and (suspected) exposure to COVID-19
CPT/HCPCS: 0241U; 36415; 71045; 80053; 81003; 81015; 82550; 82553; 83605; 83690; 83735; 83880; 84484; 85025; 85379; 85610; 85651; 85730; 86140; 93005; 93970; 99284

== ENCOUNTER 2023-11-06 16:01 | Emergency (ER) | payer MEDICARE, OTHER, SELFPAY ==
[2021-02-19 15:15] VITALS: BMI 27.0
[2023-11-06 16:05] VITALS: BP 131/76; PULSE 106; RESP 18; TEMP 36.2; O2SAT 100; BMI 32.3
--- NOTE | 2023-11-06 16:18 | DI.RAD.S_ITS ---
PROCEDURE: XR TIBIA FUBULA RT 2V INDICATIONS: fall, open wound TECHNIQUE: 2 views of the tibia and fibula were acquired. COMPARISON: None. FINDINGS: Bones: No fractures or dislocations. No suspicious bony lesions. Soft tissues: There is soft tissue edema and subcutaneous emphysema overlying the mid tibial diaphysis. There is no radiopaque foreign body. IMPRESSION: Soft tissue edema and emphysema concerning for cellulitis without radiopaque foreign body. Dictated by: Kesha Barba M.D. on 11/06/2023 at 15:59 Approved by: Kesha Barba M.D. on 11/06/2023 at 16:01
[2023-11-06] MEDS: TET,DIPH,PERTUSS(ACELL),VAC/PF 0.5 ML SYRINGE IM (19:41)
[2023-11-06] MEDS: IBUPROFEN 400 MG TABLET 800 MG PO (19:41)
--- NOTE | 2023-11-06 20:03 | ED.WOUNDLAC ---
HPI - Wound/Laceration General Chief Complaint: Wound/Laceration Stated Complaint: needs stitches, lac on leg Time Seen by Provider: 11/06/23 19:59 Source: patient Mode of arrival: Ambulatory History of Present Illness HPI narrative: Patient is a 68-year-old male history of CVA on aspirin presents today is mechanical fall. He tripped over [employer] wall. Did not hit his head no loss of consciousness no neck pain. Only injury seems to be lower extremities. He does have significant laceration on the right lower leg with tissue protrusion. No knee or ankle pain. He is other scrapes. Tetanus not up-to-date Related Data Home Medications Medication Instructions Recorded Confirmed bupropion HCl 150 mg tablet,12 hr 150 mg PO BID 02/19/21 01/15/22 sustained-release etodolac 400 mg tablet,extended 400 mg PO DAILY 02/19/21 01/15/22 release 24 hr prednisone 5 mg tablet 10 mg PO DAILY 02/19/21 01/15/22 testosterone cypionate 200 mg/mL 200 mg IM Q14D 02/19/21 01/15/22 intramuscular oil aripiprazole [Abilify] PO 01/15/22 01/15/22 aspirin 81 mg tablet,delayed 81 mg PO DAILY 01/15/22 01/15/22 release levothyroxine 150 mcg tablet 125 mcg PO QAM 01/15/22 01/15/22 trazodone PO 01/15/22 01/15/22 Previous Rx's Medication Instructions Recorded metoprolol succinate 50 mg 50 mg PO DAILY #30 tabs 02/20/21 tablet,extended release 24 hr mupirocin 2 % topical ointment 1 applic topical TID #15 grams 11/08/21 cephalexin 500 mg capsule 500 mg PO BID 7 days #14 caps 11/06/23 Allergies Allergy/AdvReac Type Severity Reaction Status Date / Time No Known Drug Allergies Allergy Verified 11/06/23 16:05 Patient History Medical History Hypertension Hypothyroidism (acquired) PMR (polymyalgia rheumatica) Tuberculosis Social History household members: spouse Smoking Status: Current every day smoker alcohol intake: former Smoking Status: Current every day smoker Substance Use Type: does not use Exam Initial Vital Signs Initial Vital Signs: Vital Signs Temperature 97.2 F L 11/06/23 16:05 Pulse Rate 106 H 11/06/23 16:05 Respiratory Rate 18 11/06/23 16:05 Blood Pressure 131/76 11/06/23 16:05 Pulse Oximetry 100 11/06/23 16:05 Oxygen Delivery Method Room Air 11/06/23 16:05 GENERAL: Alert pleasant 68-year-old male and in [no acute] distress. HEENT: Head atraumatic,EOMI, pupils reactive, face symmetric, [moist] mucous membranes CARDIOVASCULAR: Regular rate and rhythm without murmurs, rubs or gallops. RESPIRATORY: Breath sounds equal bilaterally, no wheezes rales or rhonchi. ABDOMEN: Soft, nontender. Normoactive bowel sounds all 4 quadrants. No guarding or rebound. EXTREMITIES: Normal range of motion, no clubbing or edema. Neurovascularly intact Right lower extremity able to flex and extend foot distal pedal pulse intact Achilles tendon intact knee stable NEUROLOGICAL: Alert and oriented x4.Normal gait and speech SKIN: Right anterior bull 4 cm laceration with adipose tissue and other tissue protrusion, multiple other abrasions bilateral legs Procedures Laceration Repair Laceration 1: Site: lower extremity Side (If applicable): right Size (cm): 4 Description: linear Depth: involves muscle layer Local Anesthetic: lidocaine 2% and with epi Amount of anesthesia used (mL): 10 Pre-repair: wound explored, irrigated extensively and deep structures intact Skin layer closed with: nylon Skin layer suture size: 3-0 (3) and 4-0 (5) Technique: simple, interrupted and horizontal mattress Course Orders Ordered: Discontinued Medications Bacitracin (Bacitracin Oint 0.9 Gm Pckt) 3 applic TOP NOW ONE Stop: 11/06/23 20:37 Last Admin: 11/06/23 20:39 Dose: 3 applic Documented By: AB Cefazolin Sodium (Cephalexin 250 Mg Cap Prepack) 1 bottle MISC DIRECTED ONE Stop: 11/06/23 20:49 Last Admin: 11/06/23 20:55 Dose: 1 bottle Documented By: AB Diphtheria/Tetanus/Acell Pertussis (Tet,Diph,Pertuss(Acell),Vac/Pf 0.5 Ml Syringe) 0.5 ml IM .ONCE ONE Stop: 11/06/23 16:09 Last Admin: 11/06/23 19:41 Dose: 0.5 ml Documented By: AB Ibuprofen (Ibuprofen 400 Mg Tablet) 800 mg PO NOW ONE Stop: 11/06/23 19:38 Last Admin: 11/06/23 19:41 Dose: 800 mg Documented By: AB Lidocaine/Epinephrine (Lidocaine 1% W/Epi) 20 ml INJ INTRA-OP ONE Stop: 11/06/23 20:37 Last Admin: 11/06/23 20:55 Dose: 20 ml Documented By: AB Vital Signs Vital signs: Vital Signs - 8 hr 11/06/23 16:05 Temperature 97.2 F L Pulse Rate 106 H Respiratory Rate 18 Blood Pressure 131/76 Pulse Oximetry 100 Oxygen Delivery Method Room Air MDM - Wound/Laceration MDM Narrative Medical decision making narrative: Patient is 68-year-old male presents today after mechanical trip and fall. He does have good laceration on the right lower extremity. With some adipose tissue exposure. It did take some forced it adipose back in with multiple mattress sutures and others but it did closed. It was irrigated while he was put on antibiotics tetanus now up-to-date. Another small laceration on the left leg was repaired with Steri-Strip all other abrasions were covered with bacitracin Discussion with patient about elevation and ice. I do have concerns about wound healing with this particular wound. It make infected which I discussed with the patient. Recommend close follow-up. Discharge Plan Departure Patient Disposition: Home Clinical Impression: Laceration Instructions: DI for Laceration Repair Activity Restrictions/Additional Instructions: *You have been diagnosed with right leg laceration *What to do: Keep area clean and dry with soap and water bathe appropriately. Elevate and ice often. Sutures should be removed in about 7-10 days You may require wound care referral this maybe difficult to heal *Continue to take medications as directed Keflex 500 mg twice a day for 7 days Motrin 600mg every 6 hours [id number] pain Tylenol 1000 mg every 6 hours for [id number] pain *Follow up with your primary care provider in 2-3 days or call [phone] *Return to ER if you should have increasing redness swelling pain in ability to move toes or any new, worsening or concerning symptoms Prescriptions: New cephalexin 500 mg capsule 500 mg PO BID 7 Days Qty: 14 0RF No Action mupirocin 2 % ointment 1 applic topical TID Qty: 15 0RF bupropion HCl 150 mg tablet sustained-release 12 hr 150 mg PO BID etodolac 400 mg tablet extended release 24 hr 400 mg PO DAILY prednisone 5 mg tablet 10 mg PO DAILY testosterone cypionate 200 mg/mL oil 200 mg IM Q14D metoprolol succinate 50 mg Tablet Extended Release 24 Hr 50 mg PO DAILY Qty: 30 0RF levothyroxine 150 mcg tablet 125 mcg PO QAM trazodone PO aripiprazole [Abilify] PO aspirin 81 mg tablet,delayed release (DR/EC) 81 mg PO DAILY Referrals: Santosh Craven MD [Primary Care Provider] - Stand Alone Forms: Patient Portal/API
[2023-11-06] MEDS: BACITRACIN OINT 0.9 GM PCKT 3 APPLIC TOP (20:39)
[2023-11-06] MEDS: cephALEXin 250 MG CAP PREPACK 1 BOTTLE MISC (20:55)
[2023-11-06] MEDS: LIDOCAINE 1% W/EPI 20 ML INJ (20:55)
== END 2023-11-06 20:57 | disposition home or self-care (01) ==
PROVIDERS: Emergency Provider Emergency Medicine; Family Provider Family Medicine; PCP Family Medicine
DX: S81.811A Laceration without foreign body, right lower leg, initial encounter (principal); W01.0XXA Fall on same level from slipping, tripping and stumbling without subsequent striking against object, initial encounter; Z23 Encounter for immunization
CPT/HCPCS: 12002; 73590; 90471; 99283; 90715

== ENCOUNTER → 2023-12-14 08:32 | Outpatient (CLI) | payer MEDICARE, OTHER, SELFPAY ==
[2021-02-19 15:15] VITALS: BMI 27.0
== END ==
LOC: WC 09:10
PROVIDERS: Family Provider Family Medicine; PCP Family Medicine; Referring Provider Family Medicine; Visit Provider Surgery
DX: S81.801A Unspecified open wound, right lower leg, initial encounter (principal); L98.8 Other specified disorders of the skin and subcutaneous tissue; R60.0 Localized edema; I10 Essential (primary) hypertension
CPT/HCPCS: 11042; 87070; 87075; 87205; 99203; 99214

== ENCOUNTER → 2023-12-21 09:27 | Outpatient (CLI) | payer MEDICARE, OTHER, SELFPAY ==
[2021-02-19 15:15] VITALS: BMI 27.0
== END ==
LOC: WC 09:28
PROVIDERS: Family Provider Family Medicine; PCP Family Medicine; Referring Provider Family Medicine; Visit Provider Surgery
DX: S81.801A Unspecified open wound, right lower leg, initial encounter (principal); L98.8 Other specified disorders of the skin and subcutaneous tissue; R60.0 Localized edema; M79.661 Pain in right lower leg
CPT/HCPCS: 11042

== ENCOUNTER → 2023-12-28 08:53 | Outpatient (CLI) | payer MEDICARE, OTHER, SELFPAY ==
[2021-02-19 15:15] VITALS: BMI 27.0
== END ==
LOC: WC 08:54
PROVIDERS: Family Provider Family Medicine; PCP Family Medicine; Referring Provider Family Medicine; Visit Provider Surgery
DX: L98.8 Other specified disorders of the skin and subcutaneous tissue (principal); S81.801A Unspecified open wound, right lower leg, initial encounter; R60.0 Localized edema; M79.661 Pain in right lower leg; Z79.52 Long term (current) use of systemic steroids
CPT/HCPCS: 11042

== ENCOUNTER → 2024-01-04 08:44 | Outpatient (CLI) | payer MEDICARE, OTHER, SELFPAY ==
[2021-02-19 15:15] VITALS: BMI 27.0
== END ==
LOC: WC 08:45
PROVIDERS: Family Provider Family Medicine; PCP Family Medicine; Referring Provider Family Medicine; Visit Provider Surgery
DX: S81.811A Laceration without foreign body, right lower leg, initial encounter (principal); R60.0 Localized edema; M79.661 Pain in right lower leg; I10 Essential (primary) hypertension; Z79.52 Long term (current) use of systemic steroids
CPT/HCPCS: 11042

== ENCOUNTER → 2024-01-11 09:10 | Outpatient (CLI) | payer MEDICARE, OTHER, SELFPAY ==
[2021-02-19 15:15] VITALS: BMI 27.0
== END ==
PROVIDERS: Family Provider Family Medicine; PCP Family Medicine; Referring Provider Family Medicine; Visit Provider Surgery
DX: L98.8 Other specified disorders of the skin and subcutaneous tissue (principal); S81.801A Unspecified open wound, right lower leg, initial encounter; R60.0 Localized edema; I10 Essential (primary) hypertension
CPT/HCPCS: 11042; 99213

== ENCOUNTER → 2024-01-18 10:30 | Outpatient (CLI) | payer MEDICARE, OTHER, SELFPAY ==
[2021-02-19 15:15] VITALS: BMI 27.0
== END ==
PROVIDERS: Family Provider Family Medicine; PCP Family Medicine; Referring Provider Family Medicine; Visit Provider Surgery
DX: L98.8 Other specified disorders of the skin and subcutaneous tissue (principal); S81.801A Unspecified open wound, right lower leg, initial encounter; R60.0 Localized edema; Z79.52 Long term (current) use of systemic steroids; I10 Essential (primary) hypertension; Z86.73 Personal history of transient ischemic attack (TIA), and cerebral infarction without residual deficits
CPT/HCPCS: 97602; 99213

== ENCOUNTER → 2024-02-01 08:37 | Outpatient (CLI) | payer MEDICARE, OTHER, SELFPAY ==
[2021-02-19 15:15] VITALS: BMI 27.0
== END ==
PROVIDERS: Family Provider Family Medicine; PCP Family Medicine; Referring Provider Family Medicine; Visit Provider Surgery
DX: S81.801D Unspecified open wound, right lower leg, subsequent encounter (principal); R60.0 Localized edema
CPT/HCPCS: 99213

== ENCOUNTER → 2024-03-27 10:38 | Outpatient (ROUT) | payer MEDICARE, OTHER, SELFPAY ==
[2021-02-19 15:15] VITALS: BMI 27.0
[2024-03-27 11:30] LABS: Influenza A - CEPHEID Flu A NEGATIVE (NEGATIVE); Influenza B - CEPHEID Flu B NEGATIVE (NEGATIVE); Respiratory Syncytial Virus Negative (Negative)
[2024-03-27 11:36] LABS: COVID-19 CEPHEID 4-PLEX PCR Negative (Negative)
== END ==
PROVIDERS: Family Provider Family Medicine; PCP Family Medicine; Visit Provider Family Medicine
DX: R11.2 Nausea with vomiting, unspecified (principal)
CPT/HCPCS: 0241U

== ENCOUNTER 2024-03-30 16:38 | Inpatient (IN) | payer MEDICARE, OTHER, SELFPAY ==
[2021-02-19 15:15] VITALS: BMI 27.0
[2024-03-30 16:44] VITALS: BMI 29.2
[2024-03-30 17:00] VITALS: BP 124/77; PULSE 89; RESP 20; TEMP 36.7; O2SAT 98
[2024-03-30] MEDS: ONDANSETRON 4 MG/2 ML INJ IV (17:15)
[2024-03-30] MEDS: MORPHINE 2 MG/ML INJ 1 MG IV ×3 (17:15→22:02)
[2024-03-30] MEDS: LACTATED RINGERS 1,000 ML 150 ML IV (17:20)
--- NOTE | 2024-03-30 17:48 | DI.CT.S_ITS ---
PROCEDURE: CT ABDOMEN PELVIS W CON INDICATIONS: abd pain TECHNIQUE: After the administration of intravenous contrast, axial sections acquired from the lung bases to the pubic symphysis. Coronal and sagittal reformats were performed. For radiation dose reduction, the following was used: automated exposure control, adjustment of mA and/or kV according to patient size. COMPARISON: [facility], CT, CT ABDOMEN PELVIS W CON, 02/20/2021, 8:32. [facility], CT, CT ABDOMEN PELVIS W CON, 04/28/2019, 7:55. FINDINGS: Image quality: Diagnostic. Lower Chest: Bibasilar atelectasis. Small hiatal hernia. Heart size is normal. Small pericardial effusion. ABDOMEN: Liver: No solid mass. There is diffuse hypoattenuation of the liver parenchyma relative to the spleen compatible with hepatic steatosis. Gallbladder: No radiopaque gallstones or wall thickening. Biliary ducts: No biliary dilation. Pancreas: No ductal dilation. Spleen: Size is within normal limits. Adrenal Glands: No adrenal nodules. Kidneys and Ureters: No hydronephrosis. No solid mass. No complex renal cystic lesion which requires follow up. Left renal cyst. Stomach and Bowel: Scattered colonic diverticula. There is circumferential wall thickening of the sigmoid colon extending towards the rectum with moderate wall thickening and inflammatory stranding noted over the right side of the distal sigmoid colon. There is a lobulated fluid collection noted in the right lower abdomen with largest component measuring approximately 7.9 x 3.9 cm in axial cross-sectional dimension (129/series 2). There also locules of air within this fluid collection which extend beyond the margins of this collection. Multiple locules of free air seen throughout the abdomen. These are seen in the anti dependent portions extending into the right perihepatic space. There also multiple loops of dilated small bowel with differential air-fluid levels. A definite transition point is not visualized although it is suspected to be in the right lower quadrant. Distal small bowel/ileum is decompressed and fluid-filled with circumferential wall thickening of the terminal ileum. There is also mild wall thickening of the cecum and proximal ascending colon. Moderate inflammatory stranding noted in this region. This is in close vicinity to fluid collection described above. Is difficult to delineate if the epicenter of inflammatory changes is noted near the ileocecal junction with secondary inflammation of the distal sigmoid colon versus inflammatory changes centered near the rectosigmoid junction with secondary inflammatory changes involving the ileocecal region. A definite source for suspected perforation not visualized. Peritoneum: Scattered locules of free air seen throughout the anti dependent portions of the abdomen. Ventral Wall: No significant ventral hernia. Abdominal Nodes: No retroperitoneal or mesenteric adenopathy by size criteria. Vessels: Scattered atherosclerotic calcifications of the abdominal aorta and iliac vessels without aneurysmal dilatation. The inferior vena cava appears patent. PELVIS: Pelvic Organs: Unremarkable. Bladder: No bladder wall thickening, accounting for underdistention. Pelvic Nodes: No enlarged lymph nodes. Miscellaneous: No inguinal hernias are seen. Bones: No aggressive osseous abnormality. Visualized osseous structures appear intact without acute fracture or focal destructive lesion. No acute compression fractures of the imaged spine. IMPRESSION: 1. Extensive scattered colonic diverticula with acute inflammatory changes involving both the sigmoid colon most pronounced near the rectosigmoid junction as well as near the proximal ascending colon near the ileocecal junction. There is a near-complete thin rim enhancing fluid collection intervening between these 2 sections with moderate associated inflammatory changes as well as scattered locules of air. Additionally, numerous scattered locules of free air seen throughout the anti dependent portions of the abdomen most pronounced in the upper abdomen and anterior right subdiaphragmatic/ perihepatic space. Findings are concerning for acute diverticulitis with perforation. A definite source for free air not identified. 2. Small bowel obstruction with transition point likely within the right lower quadrant. 3. Other chronic findings as above. Findings were discussed with Dr. Craven at 2148 hrs. Dictated by: Sal Pascual M.D. on 03/30/2024 at 21:17 Approved by: Sal Pascual M.D. on 03/30/2024 at 21:49
--- NOTE | 2024-03-30 17:57 | PM.HP.1 ---
History of Present Illness History of Present Illness Date Patient Seen: 03/30/24 Time Patient Seen: 17:57 Date of Onset of Symptoms: 03/24/24 Chief complaint: Abd Pain/Dehydration Narrative: Patient is a 68-year-old male well known to me with history of depression and polymyalgia rheumatica who presents with abdominal pain. Patient was in his usual state of good health until Wednesday or Wednesday of last week when he began having severe diarrhea. With pretty significant abdominal cramping. Some nausea and vomiting but not consistent. No blood in his stool. The patient did have a fever. On Wednesday 101. Has not had a fever since. Not been able to eat. Taking some fluids. Diarrhea is resolved over 48 hours but he is continued to have severe abdominal pain. Was seen in clinic and blood work [place] [id number]. Patient continued to be followed and continued to have increasing pain. Presented with unable to eat drink although he has been having urination every 2 hours. Otherwise patient is basically just with the pain he describes it mostly as right side but seems to be everywhere. Gets worse with movement or vomiting. Patient otherwise has not been traveling. No one else in the family has been sick. Never had anything like this before. Has not had abdominal surgery. No other change or complaint. Patient has had no headaches. No chest pain. No shortness of breath no breathing issues. Does have a tiny bit of pain with urination. But no other change. [facility] Medical History Hypertension Hypothyroidism (acquired) PMR (polymyalgia rheumatica) Tuberculosis Social History household members: spouse Smoking Status: Current every day smoker alcohol intake: former Meds Home Medications and Allergies Home Medications Medication Instructions Recorded Confirmed Type etodolac 400 mg tablet,extended 400 mg PO DAILY 02/19/21 03/30/24 History release 24 hr prednisone 5 mg tablet 10 mg PO DAILY 02/19/21 03/30/24 History testosterone cypionate 200 mg/mL 200 mg IM Q14D 02/19/21 03/30/24 History intramuscular oil aspirin 81 mg tablet,delayed 81 mg PO DAILY 01/15/22 03/30/24 History release levothyroxine 150 mcg tablet 175 mcg PO QAM 01/15/22 03/30/24 History trazodone 25 mg PO BEDTIME 01/15/22 03/30/24 History PreserVision AREDS-2 1 cap PO DAILY 03/30/24 03/30/24 History albuterol 90 mcg/actuation aerosol 90 mcg inhalation Q4HR PRN sob 03/30/24 03/30/24 History inhaler betamethasone dipropionate 0.05 % 1 applic topical DAILY 03/30/24 03/30/24 History topical cream chlorthalidone 25 mg tablet 25 mg PO DAILY 03/30/24 03/30/24 History donepezil 5 mg tablet 5 mg PO ONCE PM 03/30/24 03/30/24 History escitalopram oxalate 10 mg tablet 10 mg PO DAILY 03/30/24 03/30/24 History fexofenadine 180 mg tablet 180 mg PO DAILY PRN allergies 03/30/24 03/30/24 History folic acid 1 mg tablet 1 mg PO DAILY 03/30/24 03/30/24 History hydrocortisone 2.5 % topical cream 1 applic topical DAILY 03/30/24 03/30/24 History hydroxyzine HCl 25 mg tablet 25 mg PO QID PRN Itching 03/30/24 03/30/24 History ketoconazole 2 % shampoo 1 applic topical Q OTHER DAY 03/30/24 03/30/24 History ketoconazole 2 % topical cream 1 applic topical BID 03/30/24 03/30/24 History losartan 50 mg tablet 50 mg PO BID 03/30/24 03/30/24 History mometasone 0.1 % topical cream 1 applic topical DAILY 03/30/24 03/30/24 History omeprazole 40 mg capsule,delayed 40 mg PO DAILY 03/30/24 03/30/24 History release ondansetron HCl 4 mg tablet 4 mg PO Q8H PRN Nausea And Vomiting 03/30/24 03/30/24 History primidone 50 mg tablet 50 mg PO BEDTIME 03/30/24 03/30/24 History semaglutide 0.25 mg or 0.5 mg (2 0.25 mg SUBCUT QWEEK 03/30/24 03/30/24 History mg/3 mL) subcutaneous pen injector terbinafine HCl 250 mg tablet 250 mg PO DAILY 03/30/24 03/30/24 History Allergies Allergy/AdvReac Type Severity Reaction Status Date / Time No Known Drug Allergies Allergy Verified 11/06/23 16:05 Review of Systems Review of Systems Narrative: All negative except above Exam Vital Signs (past 8 hours): Alert fatigued male in moderate pain HEENT exam is mucous membranes moist neck supple without adenopathy JVD or bruits. Lungs are clear. Heart is regular rate and rhythm. Abdomen is mildly distended soft positive bowel sounds. He has somewhat diffuse pain although significantly worse in the right upper and right lower quadrants. Does have some appearance of rebound. No guarding. Extremities without abnormality. Skin has normal tone. Neurologic exam is intact. Assessment & Plan Assessment & Plan narrative: Abdominal pain. [place] [id number] and borderline surgical abdomen. Need further evaluation. Will repeat white count. Amylase. CMP. Will obtain CT scan. White count continues to be elevated will add antibiotics. Depending on CT scan will be helpful. Certainly this could be gallbladder related. Pancreatitis. Diverticulitis. Appendicitis is certainly still in the picture. Will control pain with morphine and follow from there. Will make NPO. Interesting patient has been on semaglutide recently and is it possible that this is some side effect as semaglutide will have to see. Dehydration. Moderate. No history of cardiac disease will give LR 150 an hour see how he responds with urine output follow from there. Mild burning with urination. I do not think this is all secondary to kidney disease but certainly possible. Will check urine when available and treat if needed. History of GERD. Will be NPO. Will add IV pantoprazole. Hypertension. At this point he seems to be doing well. Would like to hold medication will do IV if needed. Hypothyroidism. NPO at this time certainly okay for a few days without his thyroid. Will restart when able. History of depression. Has been pretty significant but we will follow. I am going to hold his medications tonight hopefully can restart him soon. Polymyalgia rheumatica. Patient has been on 10 mg of prednisone for quite some time. But should be safe to discontinue for short period of time. Do not think I have to cover him with stress dose steroids and will follow. DVT prophylaxis will place on Lovenox. Code status full. Disposition. Will be clear by morning. But I suspect he will be here for a few days. Possibility of surgical intervention is possible given his acute abdomen but will see how things go. He understands will call if change. Patient is currently concerning we sick given his abdominal findings today and it is unclear but will need aggressive follow-up and care Time-Based Coding :: [TOTAL MINUTES] spent with patient and on the chart (including review of chart, obtaining history, exam, reviewing outside data, placing orders, documenting exam and treatment plan, and counseling patient) on [DATE]. Quality VTE Deep Vein Thrombosis/Pulmonary Embolism Present on Admission: No
[2024-03-30 18:10] LABS: Add Manual Diff / Slide Review NO; Basophils Absolute Auto 0 /uL (0-100); Basophils Percent Auto 0.3 % (0-2); Eosinophils Absolute Auto 200 /uL (0-450); Eosinophils Percent Auto 1.4 % (2-4); Hematocrit 37.9 % (41-53); Hemoglobin 12.6 g/dL (13.5-17.5); Lymphocytes Absolute Auto 500 /uL (1100-4500); Lymphocytes Percent Auto 3.6 % (25-40); Mean Corpuscular HGB Conc 33.3 % (30-36); Mean Corpuscular Hemoglobin 29.5 PG (26-34); Mean Corpuscular Volume 88.5 fL (80-100); Monocytes Absolute Auto 700 /uL (0-900); Monocytes Percent Auto 5.2 % (3-14); Neutrophils Absolute Auto 11500 /uL (1500-7000); Neutrophils Percent Auto 89.5 % (50-75); Platelet Count 366 X10^3/uL (150-400); Red Blood Cell Count 4.28 X10^6/uL (4.5-5.9); White Blood Cell Count 12.8 X10^3/uL (4.5-11.0)
[2024-03-30 18:24] LABS: Alanine Aminotransferase 72 IU/L (<50); Albumin 3.2 g/dL (3.5-5.0); Albumin Globulin Ratio 1.2 (1.0-2.8); Alkaline Phosphatase 152 U/L (38-126); Amylase 42 U/L (30-110); Aspartate Aminotransferase 44 IU/L (17-59); BUN Creatinine Ratio 31.7 (6-22); Bilirubin Total 1.1 mg/dL (0.2-1.3); Blood Urea Nitrogen 40 mg/dL (9-20); Calcium 8.4 mg/dL (8.4-10.2); Carbon Dioxide 29 mmol/L (22-32); Chloride 95 mmol/L (98-107); Estimated Glomerular Filt Rate > 60 mL/min (>60); Globulin 2.7 g/dL (1.7-4.1); Glucose 130 mg/dL (80-110); HEMOLYSIS < 15 (0-50); Potassium 3.2 mmol/L (3.4-5.1); Sodium 134 mmol/L (137-145); Total Protein 5.9 g/dL (6.3-8.2)
[2024-03-30 19:00] VITALS: O2SAT 98
[2024-03-30 19:00] LABS: Appearance Urine UA CLEAR; Bilirubin Urine UA 2+ (NEGATIVE); Color Urine UA YELLOW; Glucose Urine UA NEGATIVE (Negative); Ketones Urine UA TRACE (NEGATIVE); Leukocyte Esterase Urine UA NEGATIVE (NEGATIVE); Nitrite Urine UA NEGATIVE (Negative); Occult Blood Urine UA TRACE-INTACT (Negative); Protein Urine UA 2+ (Negative); Specific Gravity Urine UA 1.015 (1.000-1.035); pH Urine UA 6.5 (4.5-8.0)
[2024-03-30 19:24] LABS: Bacteria Urine None Seen; Culture Indicated Urine Cult Not Indicated; Ictotest Urine Negative (Negative); RBC Urine None Seen (0-5/HPF); Squamous Epithelial Cell Urine None Seen (0-5/HPF); Urine Volume 10mL (spun); WBC Urine 0-1/HPF (0-5/HPF)
[2024-03-30] MEDS: POTASSIUM CHLORIDE IN WATER 10 MEQ/100 ML PIGGYBACK 100 MEQ IV ×4 (19:51→23:10)
[2024-03-30 20:33] VITALS: BP 130/80; PULSE 86; RESP 16; TEMP 36.4; O2SAT 98
--- NOTE | 2024-03-30 22:17 | PM.PN.1 ---
Subjective Subjective Date Patient Seen: 03/30/24 Time Patient Seen: 22:18 Interval history: ct scan call Exam Vital Signs (past 8 hours): - 03/30/24 17:00 03/30/24 20:33 Temperature 98.1 F 99.2 F Pulse Rate 89 70 Respiratory Rate 20 16 Blood Pressure 124/77 111/64 Pulse Oximetry 98 98 Oxygen Flow Rate 0 0 Oxygen Flow Rate 0 Objective Labs 03/30/24 17:55 03/30/24 17:55 Labs: Laboratory Results - last 24 hr 03/30/24 03/30/24 17:55 18:52 WBC 12.8 H RBC 4.28 L Hgb 12.6 L Hct 37.9 L MCV 88.5 MCH 29.5 MCHC 33.3 RDW 15.0 H Plt Count 366 Neut % (Auto) 89.5 H Lymph % (Auto) 3.6 L [place] % (Auto) 5.2 Eos % (Auto) 1.4 L Baso % (Auto) 0.3 Neut # (Auto) 39572 H Lymph # (Auto) 500 L [place] # (Auto) 700 Eos # (Auto) 200 Baso # (Auto) 0 Sodium 134 L Potassium 3.2 L Chloride 95 L Carbon Dioxide 29 BUN 40 H Creatinine 1.26 H Estimated GFR > 60 BUN/Creatinine Ratio 31.7 H Glucose 130 H Calcium 8.4 Total Bilirubin 1.1 AST 44 ALT 72 H Alkaline Phosphatase 152 H Total Protein 5.9 L Albumin 3.2 L Globulin 2.7 Albumin/Globulin Ratio 1.2 Amylase 42 Urine Color Yellow Urine Appearance Clear Urine pH 6.5 Ur Specific [place] 1.015 Urine Protein 2+ H Urine Glucose (UA) Negative Urine Ketones Trace H Urine Occult Blood Trace-intact Urine Nitrate Negative Urine Bilirubin 2+ H Ur Bilirubin Confirm Negative Urine Urobilinogen 4.0 H Ur Leukocyte Esterase Negative Urine RBC None seen Urine WBC 0-1/hpf Ur Squamous Epith Cells None seen Urine Bacteria None seen Ur Culture Indicated? Cult not indicated Vol Urine Centrifuged 10ml (spun) PFSH Medical History Hypertension Hypothyroidism (acquired) PMR (polymyalgia rheumatica) Tuberculosis Social History household members: spouse Smoking Status: Current every day smoker alcohol intake: former Assessment & Plan Assessment & Plan narrative: Abdominal pain. call from radiologist with results. appears to be diverticular disease with abcess and perferation and free air. Discussed with Surgeon Dr. Wetzel. He feels that we are okay to put on antibiotics zosyn and flagyl and he will see in am. Abx started and discussed with nursing. will followup am. Time-Based Coding :: [TOTAL MINUTES] spent with patient and on the chart (including review of chart, obtaining history, exam, reviewing outside data, placing orders, documenting exam and treatment plan, and counseling patient) on [DATE]. Quality VTE Deep Vein Thrombosis/Pulmonary Embolism Present on Admission: No
[2024-03-30] MEDS: PIPERACILLIN/TAZO 4.5 GM in SODIUM CHLORIDE 0.9% 100 ML IV (22:44)
[2024-03-30] MEDS: LORazepam 2 MG/ML INJ 0.5 MG IV (22:45)
[2024-03-31] VITALS (8 sets, daily range): BP systolic 115–156; BP diastolic 71–88; PULSE 84–96; RESP 12–18; TEMP 36.3–37.2; O2SAT 93–98
[2024-03-31] MEDS: LACTATED RINGERS 1,000 ML 150 ML IV (00:01)
[2024-03-31] MEDS: metroNIDAZOLE 500 MG/100 ML PIGGYBACK 100 MG IV ×5 (00:31→21:51)
[2024-03-31 04:23] LABS: Add Manual Diff / Slide Review NO; Basophils Absolute Auto 0 /uL (0-100); Basophils Percent Auto 0.2 % (0-2); Eosinophils Absolute Auto 300 /uL (0-450); Hematocrit 35.9 % (41-53); Lymphocytes Absolute Auto 700 /uL (1100-4500); Lymphocytes Percent Auto 5.4 % (25-40); Mean Corpuscular HGB Conc 33.5 % (30-36); Mean Corpuscular Hemoglobin 29.7 PG (26-34); Mean Corpuscular Volume 88.5 fL (80-100); Monocytes Absolute Auto 700 /uL (0-900); Monocytes Percent Auto 5.3 % (3-14); Neutrophils Absolute Auto 10700 /uL (1500-7000); Neutrophils Percent Auto 87.1 % (50-75); Platelet Count 353 X10^3/uL (150-400); Red Blood Cell Count 4.06 X10^6/uL (4.5-5.9); Red Cell Distribution Width 15.2 % (11.6-14.8); White Blood Cell Count 12.3 X10^3/uL (4.5-11.0)
[2024-03-31] MEDS: MORPHINE 2 MG/ML INJ 1 MG IV ×2 (04:29→06:28)
[2024-03-31 04:47] LABS: Alanine Aminotransferase 58 IU/L (<50); Albumin 3.2 g/dL (3.5-5.0); Alkaline Phosphatase 131 U/L (38-126); Aspartate Aminotransferase 35 IU/L (17-59); BUN Creatinine Ratio 24.1 (6-22); Bilirubin Total 1.1 mg/dL (0.2-1.3); Blood Urea Nitrogen 33 mg/dL (9-20); Calcium 8.3 mg/dL (8.4-10.2); Carbon Dioxide 28 mmol/L (22-32); Chloride 99 mmol/L (98-107); Estimated Glomerular Filt Rate 56 mL/min (>60); Globulin 3.3 g/dL (1.7-4.1); Glucose 104 mg/dL (80-110); HEMOLYSIS < 15 (0-50); Potassium 3.4 mmol/L (3.4-5.1); Sodium 134 mmol/L (137-145); Total Protein 6.5 g/dL (6.3-8.2)
[2024-03-31] MEDS: PIPERACILLIN/TAZO 4.5 GM in SODIUM CHLORIDE 0.9% 100 ML IV ×3 (06:28→21:51)
[2024-03-31] MEDS: MORPHINE 2 MG/ML INJ IV (06:54)
--- NOTE | 2024-03-31 08:26 | PM.PN.1 ---
Subjective Subjective Date Patient Seen: 03/31/24 Time Patient Seen: 08:27 Interval history: Patient seen in follow-up of abdominal pain. Patient with increasing pain to the night not controlled by morphine. No nausea no vomiting. No significant other change Exam Vital Signs (past 8 hours): - 03/31/24 00:30 03/31/24 04:59 Temperature 98.5 F 98.5 F Pulse Rate 84 84 Respiratory Rate 18 18 Blood Pressure 116/71 115/77 Pulse Oximetry 96 93 Oxygen Flow Rate 0 0 Oxygen Delivery Method Room Air Oxygen Flow Rate 0 Narrative Exam Narrative: Alert male lying in bed in moderate distress. Lungs are clear heart is regular rate and rhythm abdomen is soft positive diffuse pain distended interestingly worsen upper right quadrant but diffusely tender pretty significant with rebound Objective Labs 03/31/24 04:13 03/31/24 04:13 Labs: Laboratory Results - last 24 hr 03/30/24 03/30/24 03/31/24 17:55 18:52 04:13 WBC 12.8 H 12.3 H RBC 4.28 L 4.06 L Hgb 12.6 L 12.0 L Hct 37.9 L 35.9 L MCV 88.5 88.5 MCH 29.5 29.7 MCHC 33.3 33.5 RDW 15.0 H 15.2 H Plt Count 366 353 Neut % (Auto) 89.5 H 87.1 H Lymph % (Auto) 3.6 L 5.4 L [place] % (Auto) 5.2 5.3 Eos % (Auto) 1.4 L 2.0 Baso % (Auto) 0.3 0.2 Neut # (Auto) 66434 H 92493 H Lymph # (Auto) 500 L 700 L [place] # (Auto) 700 700 Eos # (Auto) 200 300 Baso # (Auto) 0 0 Sodium 134 L 134 L Potassium 3.2 L 3.4 Chloride 95 L 99 Carbon Dioxide 29 28 BUN 40 H 33 H Creatinine 1.26 H 1.37 H Estimated GFR > 60 56 L BUN/Creatinine Ratio 31.7 H 24.1 H Glucose 130 H 104 Calcium 8.4 8.3 L Total Bilirubin 1.1 1.1 AST 44 35 ALT 72 H 58 H Alkaline Phosphatase 152 H 131 H Total Protein 5.9 L 6.5 Albumin 3.2 L 3.2 L Globulin 2.7 3.3 Albumin/Globulin Ratio 1.2 1.0 Amylase 42 Urine Color Yellow Urine Appearance Clear Urine pH 6.5 Ur Specific [place] 1.015 Urine Protein 2+ H Urine Glucose (UA) Negative Urine Ketones Trace H Urine Occult Blood Trace-intact Urine Nitrate Negative Urine Bilirubin 2+ H Ur Bilirubin Confirm Negative Urine Urobilinogen 4.0 H Ur Leukocyte Esterase Negative Urine RBC None seen Urine WBC 0-1/hpf Ur Squamous Epith Cells None seen Urine Bacteria None seen Ur Culture Indicated? Cult not indicated Vol Urine Centrifuged 10ml (spun) [facility] Medical History Hypertension Hypothyroidism (acquired) PMR (polymyalgia rheumatica) Tuberculosis Social History household members: spouse Smoking Status: Current every day smoker alcohol intake: former Assessment & Plan Assessment & Plan narrative: Diverticular abscess with perforation. Certainly the cause of his abdominal pain. Discussed with surgeon last night. Is on Flagyl and piperacillin/tazobactam and Flagyl. No fever at this time. White count is 12. Really no change. Pain maybe slightly worsened. Discussed extensively with the patient the cause. Possible surgical outcomes. Including ostomy. Questions answered as best I can. Awaiting surgical evaluation. Would not be surprised if he went to surgery today. Certainly concerning abdominal pain today. Will continue NPO ID. Patient will stable white count which is interesting since window from 18/06 last Wednesday. Otherwise no significant change. Blood cultures are pending. On aggressive antibiotics. No evidence of blood pressure or pulse change. At this point does not appear to be septic. But certainly at risk for getting worse. Will continue with antibiotics at this time. Hypokalemia. Improved after replacement will recheck a.m.. Dehydration. Continue IV resuscitation. Patient is NPO. Electrolytes overall it good and will continue to follow. Hepatitis. Probably secondary to infection. Improved mildly. Will rechecked tomorrow. Hypothyroidism. Continue to hold thyroid. Will restart when taking oral. I suspect that will be a few days. History of depression. Stable. Will need to continue to hold medications. Polymyalgia rheumatica. Patient at low enough dose to where we do not need stress dose steroids. Will continue to hold prednisone. DVT prophylaxis. On Lovenox Code status full. Disposition. Awaiting surgical consult. Would not be surprised if he goes to surgery today but will see what they recommend. Discussed extensively CT scan and findings. 1 hours spent with the patient chart review dictation chart Time-Based Coding :: [TOTAL MINUTES] spent with patient and on the chart (including review of chart, obtaining history, exam, reviewing outside data, placing orders, documenting exam and treatment plan, and counseling patient) on [DATE]. Quality VTE Deep Vein Thrombosis/Pulmonary Embolism Present on Admission: No
[2024-03-31] MEDS: PANTOPRAZOLE 40 MG VIAL 20 MG IV (08:53)
[2024-03-31] MEDS: HYDROMORPHONE 2 MG INJ IV ×6 (08:54→23:34)
[2024-03-31] MEDS: SODIUM CHLORIDE 0.9% 1,000 ML 150 ML IV ×2 (09:00→20:31)
[2024-03-31] MEDS: ONDANSETRON 4 MG/2 ML INJ IV ×2 (09:01→17:53)
--- NOTE | 2024-03-31 11:34 | CM.DANOTE ---
DCP Assessment Note: Pt is a 68yo male, resident of [place], is admitted for diverticulitis. Pt lives in a house with , Danielle. Pt's Primary Care Provider is Dr. Santosh Craven and insurance is Medicare and [employer]. Reviewed chart and discussed with multidisciplinary team pt's medical status and initial discharge needs. Per rounds, pt to obtain IV abx and consult with surgery is placed. DCP met w/patient at bedside; introduced self and role. Present in the room is pt's . Patient was found in bed, alert and oriented, cooperative with assessment. Pt confirmed living situation and good support in . Pt expressed preference in discharging home after speaking with surgeon. Pt has no history of SNF Rehab or home health, does not anticipate need for referral at this time. Plan: Anticipating home with spouse to transport when medically stable. CM team will follow closely for coordination of discharge plans. FAUSTINA Reyes Discharge Planning/Care Management CM Discharge Assessment Start: 03/31/24 11:32 Freq: Status: Active Protocol: Document 03/31/24 11:32 MW (Rec: 03/31/24 11:34 MW [id number]) Discharge Planning Assessment Assigned Supervising Librarian CLAYTON Cerda DPOA/Assigned Designee Name Milla Santos Contact Information [phone] Advance Directives? Yes Advance Directives on File No History Provided By Patient,Family Member,Medical Record Has Patient been admitted in last 30 No days? Prior Living Arrangements House Comment [facility] Household Members spouse Type of transporation used prior to Drives own vehicle admit Independent with ADL's Yes Is patient alert and oriented? Yes Caregiver for Another No Patient/Family Preference Home with Home Health Comment Home w/spouse upon medical clearance Discharge Plan Home Transportation Arrangement Spouse Referrals Initiated None needed Review Status In Process Please Provide Date Initial DC 03/31/24 Assessment Was Performed Next Review Type Continued Stay Review
--- NOTE | 2024-03-31 11:48 | PM.CN.IH.1 ---
History of Present Illness Consult details Date Patient Seen: 03/31/24 Time Patient Seen: 11:49 Chief complaint: Abd Pain/Dehydration Reason for consult: Perforated bowel Narrative: His symptoms started 7 days ago (LAST WEDNESDAY), and he was discovered last evening to have perforated viscus, with free air.. His exam is BENIGN, localized peritonitis, RLQ, NOT LLQ, questioning the site of perforation?? I told him IF we do surgery without bowel prep, will HAVE to give him a stoma x 2-3 months, He is not tachycardic, not hypotensive, and no diffuse peritonitis. He will be kept NPO, IVF, IV Antibiotics, pain control, and nausea control, and will follow clinically very closely, and hopefully he will recover without a stoma. Meds Home Medications and Allergies Home Medications Medication Instructions Recorded Confirmed Type etodolac 400 mg tablet,extended 400 mg PO DAILY 02/19/21 03/30/24 History release 24 hr prednisone 5 mg tablet 10 mg PO DAILY 02/19/21 03/30/24 History testosterone cypionate 200 mg/mL 200 mg IM Q14D 02/19/21 03/30/24 History intramuscular oil aspirin 81 mg tablet,delayed 81 mg PO DAILY 01/15/22 03/30/24 History release levothyroxine 150 mcg tablet 175 mcg PO QAM 01/15/22 03/30/24 History trazodone 25 mg PO BEDTIME 01/15/22 03/30/24 History PreserVision AREDS-2 1 cap PO DAILY 03/30/24 03/30/24 History albuterol 90 mcg/actuation aerosol 90 mcg inhalation Q4HR PRN sob 03/30/24 03/30/24 History inhaler betamethasone dipropionate 0.05 % 1 applic topical DAILY 03/30/24 03/30/24 History topical cream chlorthalidone 25 mg tablet 25 mg PO DAILY 03/30/24 03/30/24 History donepezil 5 mg tablet 5 mg PO ONCE PM 03/30/24 03/30/24 History escitalopram oxalate 10 mg tablet 10 mg PO DAILY 03/30/24 03/30/24 History fexofenadine 180 mg tablet 180 mg PO DAILY PRN allergies 03/30/24 03/30/24 History folic acid 1 mg tablet 1 mg PO DAILY 03/30/24 03/30/24 History hydrocortisone 2.5 % topical cream 1 applic topical DAILY 03/30/24 03/30/24 History hydroxyzine HCl 25 mg tablet 25 mg PO QID PRN Itching 03/30/24 03/30/24 History ketoconazole 2 % shampoo 1 applic topical Q OTHER DAY 03/30/24 03/30/24 History ketoconazole 2 % topical cream 1 applic topical BID 03/30/24 03/30/24 History losartan 50 mg tablet 50 mg PO BID 03/30/24 03/30/24 History mometasone 0.1 % topical cream 1 applic topical DAILY 03/30/24 03/30/24 History omeprazole 40 mg capsule,delayed 40 mg PO DAILY 03/30/24 03/30/24 History release ondansetron HCl 4 mg tablet 4 mg PO Q8H PRN Nausea And Vomiting 03/30/24 03/30/24 History primidone 50 mg tablet 50 mg PO BEDTIME 03/30/24 03/30/24 History semaglutide 0.25 mg or 0.5 mg (2 0.25 mg SUBCUT QWEEK 03/30/24 03/30/24 History mg/3 mL) subcutaneous pen injector terbinafine HCl 250 mg tablet 250 mg PO DAILY 03/30/24 03/30/24 History Allergies Allergy/AdvReac Type Severity Reaction Status Date / Time No Known Drug Allergies Allergy Verified 11/06/23 16:05 Review of Systems Review of Systems Narrative: His symptoms started 7 days ago (LAST WEDNESDAY), and he was discovered last evening to have perforated viscus, with free air.. His exam is BENIGN, localized peritonitis, RLQ, NOT LLQ, questioning the site of perforation?? I told him IF we do surgery without bowel prep, will HAVE to give him a stoma x 2-3 months, He is not tachycardic, not hypotensive, and no diffuse peritonitis. He will be kept NPO, IVF, IV Antibiotics, pain control, and nausea control, and will follow clinically very closely, and hopefully he will recover without a stoma. ROS: Yes All systems reviewed with the patient and are negative except as otherwise documented Exam Vital Signs (past 8 hours): - 03/31/24 04:59 03/31/24 08:00 03/31/24 09:33 Temperature 98.5 F 98.6 F Pulse Rate 84 92 H Respiratory Rate 18 14 Blood Pressure 115/77 136/81 Pulse Oximetry 93 93 93 Oxygen Delivery Method Nasal Cannula Oxygen Flow Rate 0 0 3 Oxygen Delivery Method Nasal Cannula Oxygen Flow Rate 3 Narrative Exam Narrative: BENIGN abdomen, localized peritoneal signs only in the RLQ. Objective Labs 03/31/24 04:13 03/31/24 04:13 Labs: Laboratory Results - last 24 hr 03/30/24 03/30/24 03/31/24 17:55 18:52 04:13 WBC 12.8 H 12.3 H RBC 4.28 L 4.06 L Hgb 12.6 L 12.0 L Hct 37.9 L 35.9 L MCV 88.5 88.5 MCH 29.5 29.7 MCHC 33.3 33.5 RDW 15.0 H 15.2 H Plt Count 366 353 Neut % (Auto) 89.5 H 87.1 H Lymph % (Auto) 3.6 L 5.4 L [place] % (Auto) 5.2 5.3 Eos % (Auto) 1.4 L 2.0 Baso % (Auto) 0.3 0.2 Neut # (Auto) 53176 H 81179 H Lymph # (Auto) 500 L 700 L [place] # (Auto) 700 700 Eos # (Auto) 200 300 Baso # (Auto) 0 0 Sodium 134 L 134 L Potassium 3.2 L 3.4 Chloride 95 L 99 Carbon Dioxide 29 28 BUN 40 H 33 H Creatinine 1.26 H 1.37 H Estimated GFR > 60 56 L BUN/Creatinine Ratio 31.7 H 24.1 H Glucose 130 H 104 Calcium 8.4 8.3 L Total Bilirubin 1.1 1.1 AST 44 35 ALT 72 H 58 H Alkaline Phosphatase 152 H 131 H Total Protein 5.9 L 6.5 Albumin 3.2 L 3.2 L Globulin 2.7 3.3 Albumin/Globulin Ratio 1.2 1.0 Amylase 42 Urine Color Yellow Urine Appearance Clear Urine pH 6.5 Ur Specific [place] 1.015 Urine Protein 2+ H Urine Glucose (UA) Negative Urine Ketones Trace H Urine Occult Blood Trace-intact Urine Nitrate Negative Urine Bilirubin 2+ H Ur Bilirubin Confirm Negative Urine Urobilinogen 4.0 H Ur Leukocyte Esterase Negative Urine RBC None seen Urine WBC 0-1/hpf Ur Squamous Epith Cells None seen Urine Bacteria None seen Ur Culture Indicated? Cult not indicated Vol Urine Centrifuged 10ml (spun) [facility] Medical History Hypertension Hypothyroidism (acquired) PMR (polymyalgia rheumatica) Tuberculosis Social History household members: spouse Tobacco & Substance Use Smoking Status: Current every day smoker alcohol intake: former Assessment & Plan Assessment and plan (1) Perforated abdominal viscus: Problem details: His symptoms started 7 days ago (LAST WEDNESDAY), and he was discovered last evening to have perforated viscus, with free air.. His exam is BENIGN, localized peritonitis, RLQ, NOT LLQ, questioning the site of perforation?? I told him IF we do surgery without bowel prep, will HAVE to give him a stoma x 2-3 months, He is not tachycardic, not hypotensive, and no diffuse peritonitis. He will be kept NPO, IVF, IV Antibiotics, pain control, and nausea control, and will follow clinically very closely, and hopefully he will recover without a stoma. Status: Acute Time-Based Coding :: [TOTAL MINUTES] spent with patient and on the chart (including review of chart, obtaining history, exam, reviewing outside data, placing orders, documenting exam and treatment plan, and counseling patient) on [DATE]. PROFEE Charge Codes Inpatient or Observation consultation: 42367
[2024-03-31] MEDS: POTASSIUM CHLORIDE IN WATER 10 MEQ/100 ML PIGGYBACK 100 MEQ IV ×2 (14:44→16:09)
[2024-04-01] MEDS: HYDROMORPHONE 2 MG INJ IV ×7 (03:04→23:26)
[2024-04-01] MEDS: SODIUM CHLORIDE 0.9% 1,000 ML 150 ML IV ×2 (04:30→19:56)
[2024-04-01] MEDS: metroNIDAZOLE 500 MG/100 ML PIGGYBACK 100 MG IV ×4 (04:30→22:37)
[2024-04-01 04:53] VITALS: BP 140/76; PULSE 90; RESP 17; TEMP 36.4; O2SAT 96
[2024-04-01 05:31] LABS: Add Manual Diff / Slide Review NO; Basophils Absolute Auto 0 /uL (0-100); Basophils Percent Auto 0.2 % (0-2); Eosinophils Absolute Auto 100 /uL (0-450); Eosinophils Percent Auto 1.1 % (2-4); Hematocrit 36.4 % (41-53); Hemoglobin 11.9 g/dL (13.5-17.5); Lymphocytes Absolute Auto 500 /uL (1100-4500); Lymphocytes Percent Auto 3.7 % (25-40); Mean Corpuscular HGB Conc 32.6 % (30-36); Mean Corpuscular Hemoglobin 29.3 PG (26-34); Mean Corpuscular Volume 89.8 fL (80-100); Monocytes Absolute Auto 600 /uL (0-900); Monocytes Percent Auto 4.9 % (3-14); Neutrophils Absolute Auto 11800 /uL (1500-7000); Neutrophils Percent Auto 90.1 % (50-75); Platelet Count 442 X10^3/uL (150-400); Red Blood Cell Count 4.05 X10^6/uL (4.5-5.9); Red Cell Distribution Width 15.4 % (11.6-14.8); White Blood Cell Count 13.1 X10^3/uL (4.5-11.0)
[2024-04-01 05:37] LABS: Alanine Aminotransferase 47 IU/L (<50); Albumin 3.1 g/dL (3.5-5.0); Alkaline Phosphatase 123 U/L (38-126); Aspartate Aminotransferase 38 IU/L (17-59); BUN Creatinine Ratio 17.3 (6-22); Bilirubin Total 0.8 mg/dL (0.2-1.3); Blood Urea Nitrogen 22 mg/dL (9-20); Carbon Dioxide 21 mmol/L (22-32); Chloride 105 mmol/L (98-107); Estimated Glomerular Filt Rate > 60 mL/min (>60); Globulin 3.1 g/dL (1.7-4.1); Glucose 88 mg/dL (80-110); HEMOLYSIS < 15 (0-50); Potassium 3.5 mmol/L (3.4-5.1); Sodium 138 mmol/L (137-145); Total Protein 6.2 g/dL (6.3-8.2)
[2024-04-01] MEDS: PIPERACILLIN/TAZO 4.5 GM in SODIUM CHLORIDE 0.9% 100 ML IV (06:04)
[2024-04-01 07:25] VITALS: O2SAT 98
[2024-04-01 08:00] VITALS: BP 134/81; PULSE 96; RESP 12; TEMP 36.9; O2SAT 92
[2024-04-01] MEDS: POTASSIUM CHLORIDE IN WATER 10 MEQ/100 ML PIGGYBACK 100 MEQ IV ×2 (08:55→09:50)
[2024-04-01] MEDS: ENOXAPARIN 40 MG/0.4 ML SYRINGE SUBCUT (08:56)
[2024-04-01] MEDS: PANTOPRAZOLE 40 MG VIAL 20 MG IV (08:56)
--- NOTE | 2024-04-01 09:23 | CM.DPC ---
DCP Cont: Per MD, pt is currently NPO with plan for surgical intervention and likely here a couple days before plan of home with outpt f/u and MD does not anticipate any further discharge planning needs at this time. Plan: SW to follow for post op surgical progress to confirm safe plan for home with spouse and any further identified discharge planning needs. CLAYTON Ortega
--- NOTE | 2024-04-01 09:33 | PM.PN.1 ---
Subjective Subjective Interval history: Chief complaint perforated diverticulitis Patient remains NPO per surgery continuing to watch and wait belly is distended he is NPO pain is controlled with Dilaudid labs are not much changed continue to monitor Urine output is okay he is requesting ice chips will defer surgery Exam Vital Signs (past 8 hours): - 04/01/24 04:53 04/01/24 08:00 Temperature 97.6 F 98.5 F Pulse Rate 90 96 H Respiratory Rate 17 12 Blood Pressure 140/76 134/81 Pulse Oximetry 96 92 Oxygen Flow Rate 0 0 Oxygen Delivery Method Room Air Oxygen Flow Rate 0 Narrative Exam Narrative: Patient laying back in bed alert awake Const Other: Well-developed well-nourished HENMT Other: Extraocular movements intact miosis Cardio Other: Regular rate S1-S2 no pedal edema GI Other: Belly distended reduced bowel sounds on auscultation and tympanic percussion findings Neuro Other: Alert awake oriented moving all limbs Psych Appearance: grossly normal Mental Status: mental status grossly normal Speech and Movement: speech and movement normal Objective Labs 04/01/24 03:51 04/01/24 03:51 Labs: Laboratory Results - last 24 hr 04/01/24 03:51 WBC 13.1 H RBC 4.05 L Hgb 11.9 L Hct 36.4 L MCV 89.8 MCH 29.3 MCHC 32.6 RDW 15.4 H Plt Count 442 H Neut % (Auto) 90.1 H Lymph % (Auto) 3.7 L [place] % (Auto) 4.9 Eos % (Auto) 1.1 L Baso % (Auto) 0.2 Neut # (Auto) 79217 H Lymph # (Auto) 500 L [place] # (Auto) 600 Eos # (Auto) 100 Baso # (Auto) 0 Sodium 138 Potassium 3.5 Chloride 105 Carbon Dioxide 21 L BUN 22 H Creatinine 1.27 H Estimated GFR > 60 BUN/Creatinine Ratio 17.3 Glucose 88 Calcium 8.0 L Total Bilirubin 0.8 AST 38 ALT 47 Alkaline Phosphatase 123 Total Protein 6.2 L Albumin 3.1 L Globulin 3.1 Albumin/Globulin Ratio 1.0 PFSH Medical History Hypertension Hypothyroidism (acquired) PMR (polymyalgia rheumatica) Tuberculosis Social History household members: spouse Smoking Status: Current every day smoker alcohol intake: former Assessment & Plan Assessment & Plan narrative: #Diverticular abscess with perforation Following along with surgery continuing NPO on Flagyl and piperacillin tazobactam vital signs stable white count remains mildly elevated not much change pain a bit better controlled on Dilaudid 6-7 he is able to move around a bit. Patient is highly motivated to avoid an ostomy if possible. #Hypokalemia Improved still low continuing to supplement and recheck #Dehydration Continue IVF at 150 mL/hour as he is NPO #Elevated LFTS/hepatitis Not much change probably secondary to infection trach and monitor #acquired hypothyroidism Continue to hold levothyroxine. Will restart when taking oral. #History of depression. Stable, mood ok, continue to hold medications. #Polymyalgia rheumatica Patient at low enough dose lately agree no need for stress dose steroids at this stage; continue to hold prednisone. DVT prophylaxis: on Lovenox Code status: full MDM: Disposition: Following along with surgery for lap resection vs PCT drain vs monitoring Time-Based Coding :: [TOTAL MINUTES] spent with patient and on the chart (including review of chart, obtaining history, exam, reviewing outside data, placing orders, documenting exam and treatment plan, and counseling patient) on [DATE]. Quality VTE Deep Vein Thrombosis/Pulmonary Embolism Present on Admission: No
--- NOTE | 2024-04-01 10:42 | DI.CT.S_ITS ---
PROCEDURE: CT BIOPSY ABDOMEN PERCUTANEOUS INDICATIONS: intra-abdominal abscess TECHNIQUE: The indications, alternatives, benefits, risks, and possible complications of the procedure were communicated to the patient. Informed written consent from the patient was obtained and placed in the chart. The patient was brought to the CT suite and playback operator spiral CT imaging was performed with localization grid. The appropriate site for percutaneous access to the biopsy target was marked, was prepped and draped sterilely, and was infused with local lidocaine anaesthesia. Under CT guidance, a Chiba needle set was advanced to the right lower quadrant abscess, and specimen(s) were obtained. A wire was placed through the Chiba needle and secured within the abscess. 9 [place] dilator was used. A 10 [place] percutaneous pigtail drainage catheter was placed. Additional fluid was aspirated 60 cc. COMPARISON: None. FINDINGS: Target site: Right lower quadrant abscess measuring 9.2 cm in with, (). There is fluid and gas within the collection. The collection is unchanged in the short-term interval. Drain: 10 [place] percutaneous pigtail drainage catheter. Medications: 1% lidocaine for local anaesthesia. Complications: None. Procedure was well tolerated by the patient. The collection was aspirated at the end of the procedure. The collection is visibly smaller measuring 8.2 cm, (). IMPRESSION: Successful CT-guided percutaneous drainage placement in the right lower quadrant abscess. 70 cc feculent fluid removed. Dictated by: Roberto Rojas M.D. on 04/01/2024 at 16:39 Approved by: Roberto Rojas M.D. on 04/01/2024 at 16:46
--- NOTE | 2024-04-01 11:04 | PM.PN.IH.1 ---
Subjective Subjective Date Patient Seen: 04/01/24 Time Patient Seen: 11:04 Interval history: Feels somewhat better today but still no appetite Exam Vital Signs (past 8 hours): - 04/01/24 04:53 04/01/24 07:25 04/01/24 07:25 Temperature 97.6 F Pulse Rate 90 Respiratory Rate 17 Blood Pressure 140/76 Pulse Oximetry 96 98 Oxygen Delivery Method Room Air Room Air Oxygen Flow Rate 0 0 04/01/24 08:00 Temperature 98.5 F Pulse Rate 96 H Respiratory Rate 12 Blood Pressure 134/81 Pulse Oximetry 92 Oxygen Delivery Method Oxygen Flow Rate 0 Oxygen Delivery Method Room Air Oxygen Flow Rate 0 Narrative Exam Narrative: Abdomen is soft, distended Tender to palpation in the right lower quadrant Objective Labs 04/01/24 03:51 04/01/24 03:51 Labs: Laboratory Results - last 24 hr 04/01/24 03:51 WBC 13.1 H RBC 4.05 L Hgb 11.9 L Hct 36.4 L MCV 89.8 MCH 29.3 MCHC 32.6 RDW 15.4 H Plt Count 442 H Neut % (Auto) 90.1 H Lymph % (Auto) 3.7 L [place] % (Auto) 4.9 Eos % (Auto) 1.1 L Baso % (Auto) 0.2 Neut # (Auto) 51307 H Lymph # (Auto) 500 L [place] # (Auto) 600 Eos # (Auto) 100 Baso # (Auto) 0 Sodium 138 Potassium 3.5 Chloride 105 Carbon Dioxide 21 L BUN 22 H Creatinine 1.27 H Estimated GFR > 60 BUN/Creatinine Ratio 17.3 Glucose 88 Calcium 8.0 L Total Bilirubin 0.8 AST 38 ALT 47 Alkaline Phosphatase 123 Total Protein 6.2 L Albumin 3.1 L Globulin 3.1 Albumin/Globulin Ratio 1.0 PFSH Medical History Hypertension Hypothyroidism (acquired) PMR (polymyalgia rheumatica) Tuberculosis Social History household members: spouse Smoking Status: Current every day smoker alcohol intake: former Assessment & Plan Assessment and plan (1) Intra-abdominal abscess: Status: Acute Plan The right lower quadrant abdominal abscesses most likely from perforated sigmoid diverticulitis. He was on IV antibiotics. We will get a percutaneous drain placed by Radiology either here or at [facility] depending on radiological availability. Time-Based Coding :: [TOTAL MINUTES] spent with patient and on the chart (including review of chart, obtaining history, exam, reviewing outside data, placing orders, documenting exam and treatment plan, and counseling patient) on [DATE]. Quality VTE Deep Vein Thrombosis/Pulmonary Embolism Present on Admission: No IH PROFEE Brake Operator Helper Document charge(s): No
[2024-04-01 13:12] LABS: INR 1.2 (0.9-1.3); Prothrombin Time 13.1 SECONDS (9.4-12.5)
[2024-04-01 13:15] LABS: PTT Partial Thromboplastin Tim 34 SECONDS (25.1-36.5)
[2024-04-01] MEDS: ONDANSETRON 4 MG/2 ML INJ IV (13:35)
[2024-04-01 15:00] VITALS: BP 149/85; PULSE 92; RESP 12; TEMP 37.1; O2SAT 95
--- NOTE | 2024-04-01 15:12 | PC.NURSE ---
Fluid collection was collected by CT employees. This nurse walked specimen down to lab and hand delivered to Lab employee.
[2024-04-01] MEDS: PIPERACILLIN/TAZO 3.375 GM in SODIUM CHLORIDE 0.9% 100 ML IV ×2 (15:37→22:32)
[2024-04-01] MEDS: METOCLOPRAMIDE 10 MG/2 ML INJ 5 MG IV (16:13)
[2024-04-01 20:00] VITALS: BP 147/83; PULSE 113; RESP 24; TEMP 36.6; O2SAT 95
[2024-04-02] VITALS (13 sets, daily range): BP systolic 147–157; BP diastolic 81–92; PULSE 95–106; RESP 19–24; TEMP 36.7–37; O2SAT 90–98
[2024-04-02] MEDS: HYDROMORPHONE 2 MG INJ IV ×3 (04:27→16:51)
[2024-04-02] MEDS: metroNIDAZOLE 500 MG/100 ML PIGGYBACK 100 MG IV (04:34)
[2024-04-02] MEDS: METOCLOPRAMIDE 10 MG/2 ML INJ 5 MG IV (04:39)
[2024-04-02] MEDS: SODIUM CHLORIDE 0.9% 1,000 ML 150 ML IV (06:05)
[2024-04-02] MEDS: PIPERACILLIN/TAZO 3.375 GM in SODIUM CHLORIDE 0.9% 100 ML IV ×3 (06:05→21:44)
[2024-04-02 07:25] LABS: BUN Creatinine Ratio 14.1 (6-22); Blood Urea Nitrogen 13 mg/dL (9-20); Calcium 7.4 mg/dL (8.4-10.2); Carbon Dioxide 19 mmol/L (22-32); Chloride 102 mmol/L (98-107); Estimated Glomerular Filt Rate > 60 mL/min (>60); Glucose 105 mg/dL (80-110); HEMOLYSIS < 15 (0-50); Magnesium 1.7 mg/dL (1.6-2.3); Potassium 3.3 mmol/L (3.4-5.1); Sodium 133 mmol/L (137-145)
--- NOTE | 2024-04-02 07:41 | PC.NURSE ---
Patient is A & O x 4, forgetful, impulsive, will not use call light. Patient up frequently to stand to void, only voiding 50-100cc at a time. PVR 151cc. Condom cath applied. Patient denies any pain with urination. Patient unsteady on his feet, up with FWW and assist of one, bed alarm on.
[2024-04-02] MEDS: ENOXAPARIN 40 MG/0.4 ML SYRINGE SUBCUT (08:47)
[2024-04-02] MEDS: ONDANSETRON 4 MG/2 ML INJ IV (08:48)
[2024-04-02] MEDS: PANTOPRAZOLE 40 MG VIAL 20 MG IV (08:48)
--- NOTE | 2024-04-02 09:33 | PM.PN.1 ---
Subjective Subjective Date Patient Seen: 04/02/24 Time Patient Seen: 09:33 Interval history: Chief complaint perforated diverticulitis Status post placement of pe rcutaneous drain yesterday with good initial output patient is feeling much better today seen with surgery who will agree with advance diet as tolerated leave drain in another day he did get a Charles placed yesterday we will look to discontinue both prior to discharge. Here with today all questions answered. Exam Vital Signs (past 8 hours): - 04/02/24 02:00 04/02/24 02:00 04/02/24 03:30 Temperature 98.6 F Pulse Rate 104 H Blood Pressure 157/90 H Pulse Oximetry 94 94 94 Oxygen Delivery Method Oximask Oxygen Flow Rate 2 2 0 Oxygen Delivery Method Oximask Oxygen Flow Rate 0 Narrative Exam Narrative: Awake resting comfortably in bed with at bedside Const Other: Well-developed well-nourished Resp Other: Grossly clear to auscultation bilaterally Cardio Other: Regular rate S1-S2 no pedal edema GI Other: Drain placed to right lower quadrant draining scant dark green insertion site is clean under dressing no surrounding erythema minimal tenderness to palpation normal bowel sounds Other: Charles in place draining yellow urine Neuro Other: Alert awake oriented moving all limbs Objective Labs 04/01/24 03:51 04/02/24 07:05 Labs: Laboratory Results - last 24 hr 04/01/24 04/02/24 12:53 07:05 PT 13.1 H INR 1.2 APTT 34 Sodium 133 L Potassium 3.3 L Chloride 102 Carbon Dioxide 19 L BUN 13 Creatinine 0.92 Estimated GFR > 60 BUN/Creatinine Ratio 14.1 Glucose 105 Calcium 7.4 L Magnesium 1.7 PFSH Medical History Hypertension Hypothyroidism (acquired) PMR (polymyalgia rheumatica) Tuberculosis Social History household members: spouse Smoking Status: Current every day smoker alcohol intake: former Assessment & Plan Assessment & Plan narrative: #Diverticular abscess with perforation #S/p PCT drain placement Doing much better after drain which surgery says these in another day we will look to shift meds to orals and advance diet as tolerated #Hypokalemia Improved still low continuing to supplement and recheck #Dehydration Okay to reduce IVF at this point #Elevated LFTS/hepatitis Not much change probably secondary to infection track and monitor #acquired hypothyroidism Restart home levothyroxine #History of depression. Restart home meds mood okay #Polymyalgia rheumatica Restart home meds stable minimal symptoms DVT prophylaxis: on Lovenox Code status: full MDM: Disposition: Per surgery Time-Based Coding :: [TOTAL MINUTES] spent with patient and on the chart (including review of chart, obtaining history, exam, reviewing outside data, placing orders, documenting exam and treatment plan, and counseling patient) on [DATE]. Quality VTE Deep Vein Thrombosis/Pulmonary Embolism Present on Admission: No
--- NOTE | 2024-04-02 09:35 | PM.PN.IH.1 ---
Subjective Subjective Date Patient Seen: 04/02/24 Time Patient Seen: 09:35 Interval history: Doing well. IR drain successfully placed yesterday. He has had a bowel movement and flatus. Exam Vital Signs (past 8 hours): - 04/02/24 02:00 04/02/24 02:00 04/02/24 03:30 Temperature 98.6 F Pulse Rate 104 H Blood Pressure 157/90 H Pulse Oximetry 94 94 94 Oxygen Delivery Method Oximask Oxygen Flow Rate 2 2 0 Oxygen Delivery Method Oximask Oxygen Flow Rate 0 Narrative Exam Narrative: Abdomen is soft, nontender, moderately distended Drain with scant output Objective Labs 04/01/24 03:51 04/02/24 07:05 Labs: Laboratory Results - last 24 hr 04/01/24 04/02/24 12:53 07:05 PT 13.1 H INR 1.2 APTT 34 Sodium 133 L Potassium 3.3 L Chloride 102 Carbon Dioxide 19 L BUN 13 Creatinine 0.92 Estimated GFR > 60 BUN/Creatinine Ratio 14.1 Glucose 105 Calcium 7.4 L Magnesium 1.7 PFSH Medical History Hypertension Hypothyroidism (acquired) PMR (polymyalgia rheumatica) Tuberculosis Social History household members: spouse Smoking Status: Current every day smoker alcohol intake: former Assessment & Plan Assessment and plan (1) Intra-abdominal abscess: Status: Acute Plan Continue drain and antibiotics If minimal drain output by tomorrow we could consider removal Okay to advance diet Time-Based Coding :: [TOTAL MINUTES] spent with patient and on the chart (including review of chart, obtaining history, exam, reviewing outside data, placing orders, documenting exam and treatment plan, and counseling patient) on [DATE]. Quality VTE Deep Vein Thrombosis/Pulmonary Embolism Present on Admission: No IH PROFEE Bakery Sales Clerk Document charge(s): No
[2024-04-02 09:57] LABS: Add Manual Diff / Slide Review NO; Basophils Absolute Auto 0 /uL (0-100); Basophils Percent Auto 0.1 % (0-2); Eosinophils Absolute Auto 100 /uL (0-450); Eosinophils Percent Auto 0.5 % (2-4); Hematocrit 34.8 % (41-53); Hemoglobin 11.5 g/dL (13.5-17.5); Lymphocytes Absolute Auto 400 /uL (1100-4500); Lymphocytes Percent Auto 2.6 % (25-40); Mean Corpuscular Hemoglobin 29.4 PG (26-34); Monocytes Absolute Auto 500 /uL (0-900); Monocytes Percent Auto 2.8 % (3-14); Neutrophils Absolute Auto 15600 /uL (1500-7000); Platelet Count 448 X10^3/uL (150-400); Red Blood Cell Count 3.91 X10^6/uL (4.5-5.9); Red Cell Distribution Width 15.1 % (11.6-14.8); White Blood Cell Count 16.6 X10^3/uL (4.5-11.0)
[2024-04-02] MEDS: CHLORTHALIDONE 25 MG TABLET PO (11:18)
[2024-04-02] MEDS: ESCITALOPRAM 10 MG TABLET PO (11:19)
[2024-04-02] MEDS: LORATADINE 10 MG TABLET PO (11:19)
[2024-04-02] MEDS: POTASSIUM CHLORIDE 20 MEQ TAB 40 MEQ PO ×2 (11:19→16:50)
[2024-04-02] MEDS: LOSARTAN 50 MG TABLET PO ×2 (11:19→21:26)
[2024-04-02] MEDS: OXYCODONE IR 5 MG TABLET 10 MG PO ×4 (11:21→21:25)
[2024-04-02] MEDS: metroNIDAZOLE 500 MG TABLET PO ×2 (12:44→16:51)
[2024-04-02] MEDS: SODIUM CHLORIDE 0.9% 1,000 ML 82 ML IV (14:27)
--- NOTE | 2024-04-02 18:40 | PC.NURSE ---
Day shift: This RN notes redness and warm to the touch area around drain insertion site. Marked with sharpie. Notified MD Barillas as redness spread to R flank this afternoon. Patient does not complain of pain, increased warmth, or itching in this area. MD stated to notify him again if redness starts to blister or slough. Rechecked area of redness this evening and it has subsided. Will continue to monitor.
[2024-04-02] MEDS: MELATONIN 3 MG TABLET PO (21:43)
[2024-04-02] MEDS: TRAZODONE 50 MG TABLET 25 MG PO (21:43)
[2024-04-03] VITALS (8 sets, daily range): BP systolic 122–149; BP diastolic 77–88; PULSE 81–93; RESP 17–24; TEMP 36.6–37.1; O2SAT 92–96
[2024-04-03] MEDS: OXYCODONE IR 5 MG TABLET 10 MG PO ×4 (00:32→20:45)
[2024-04-03] MEDS: SODIUM CHLORIDE 0.9% 1,000 ML 82 ML IV ×2 (02:30→14:27)
[2024-04-03] MEDS: HYDROMORPHONE 2 MG INJ IV (02:34)
--- NOTE | 2024-04-03 02:38 | PC.NURSE ---
NOC: Pt OOB, ambulated from room to coordinator's office and back with FWW/gait belt/1PA. Pt tolerated well, steady on feet, but reported SOB after exertion when back to bed. SpO2% 94%, pt resting comfortably. Plan of care continues.
[2024-04-03 04:47] LABS: BUN Creatinine Ratio 9.3 (6-22); Blood Urea Nitrogen 9 mg/dL (9-20); Calcium 8.1 mg/dL (8.4-10.2); Carbon Dioxide 20 mmol/L (22-32); Chloride 101 mmol/L (98-107); Estimated Glomerular Filt Rate > 60 mL/min (>60); Glucose 100 mg/dL (80-110); HEMOLYSIS < 15 (0-50); Magnesium 1.8 mg/dL (1.6-2.3); Potassium 4.1 mmol/L (3.4-5.1); Sodium 132 mmol/L (137-145)
[2024-04-03] MEDS: LEVOTHYROXINE 100 MCG TABLET PO (05:23)
[2024-04-03] MEDS: LEVOTHYROXINE 75 MCG TABLET PO (05:23)
[2024-04-03] MEDS: ONDANSETRON 4 MG/2 ML INJ IV ×2 (05:24→21:33)
[2024-04-03] MEDS: PIPERACILLIN/TAZO 3.375 GM in SODIUM CHLORIDE 0.9% 100 ML IV ×3 (05:27→21:33)
[2024-04-03] MEDS: LOSARTAN 50 MG TABLET PO ×2 (08:19→20:41)
[2024-04-03] MEDS: ESCITALOPRAM 10 MG TABLET PO (08:20)
[2024-04-03] MEDS: predniSONE 5 MG TABLET 10 MG PO (08:20)
[2024-04-03] MEDS: PANTOPRAZOLE 40 MG VIAL 20 MG IV (08:21)
[2024-04-03] MEDS: CHLORTHALIDONE 25 MG TABLET PO (08:21)
[2024-04-03] MEDS: ENOXAPARIN 40 MG/0.4 ML SYRINGE SUBCUT (08:21)
--- NOTE | 2024-04-03 08:28 | PM.PN.1 ---
Subjective Subjective Date Patient Seen: 04/03/24 Time Patient Seen: 08:28 Interval history: Patient seen in follow-up of abdominal abscess hypokalemia dehydration. Patient otherwise feeling a little better still having some abdominal pain is tolerating p.o.. Had 1 small bowel movement. Feeling like there is a little bit of discomfort around the outside of his abdomen. Oral pain medicine seem to be controlling his pain well. Still having output from his drain Exam Vital Signs (past 8 hours): - 04/03/24 02:00 04/03/24 07:53 04/03/24 08:19 Temperature 98.8 F 98.1 F Pulse Rate 93 H 91 H Respiratory Rate 24 19 Blood Pressure 134/77 143/86 H 143/86 H Pulse Oximetry 92 93 Oxygen Flow Rate 0 0 Oxygen Delivery Method Room Air Oxygen Flow Rate 0 Narrative Exam Narrative: Alert male in no acute distress lying in bed. Lungs are clear heart is regular rate and rhythm abdomen is mildly distended soft positive bowel sounds tenderness in the right lower quadrant left lower quadrant does not seem to have rebound today Objective Labs 04/02/24 09:50 04/03/24 04:00 Labs: Laboratory Results - last 24 hr 04/02/24 04/03/24 09:50 04:00 WBC 16.6 H RBC 3.91 L Hgb 11.5 L Hct 34.8 L MCV 89.0 MCH 29.4 MCHC 33.0 RDW 15.1 H Plt Count 448 H Neut % (Auto) 94.0 H Lymph % (Auto) 2.6 L [place] % (Auto) 2.8 L Eos % (Auto) 0.5 L Baso % (Auto) 0.1 Neut # (Auto) 22601 H Lymph # (Auto) 400 L [place] # (Auto) 500 Eos # (Auto) 100 Baso # (Auto) 0 Sodium 132 L Potassium 4.1 Chloride 101 Carbon Dioxide 20 L BUN 9 Creatinine 0.97 Estimated GFR > 60 BUN/Creatinine Ratio 9.3 Glucose 100 Calcium 8.1 L Magnesium 1.8 PFSH Medical History Hypertension Hypothyroidism (acquired) PMR (polymyalgia rheumatica) Tuberculosis Social History household members: spouse Smoking Status: Current every day smoker alcohol intake: former Assessment & Plan Assessment & Plan narrative: Diverticular abscess with perforation. Appears to be improving. Still has drainage from his drain I do not know the amount that will stop him from having to have it any longer and have it pulled. As per surgeon. Still on piperacillin. IV. Question is how long will need to be on IV antibiotics. It was assume it would be awhile. Discuss this. Will discuss with surgeon. Follow from there. Insomnia. Will start Ambien. Hypokalemia. Improved. Recheck a.m.. Hyponatremia. Mild decreased. Will follow. Dehydration. Resolved at this point. Elevated LFTs. Recheck a.m.. Probably secondary to intra-abdominal infection. Acquired hypothyroidism. Stable. Will continue to follow with oral meds. History of depression. Restart usual meds. Polymyalgia rheumatica on prednisone. DVT prophylaxis. On Lovenox Code status full Disposition. I suspect he will be a few more days. The question is long-term antibiotics. What means how long it will be. How long we have to watch after tube is pulled. Otherwise seems to be tolerating meds. Will continue to follow. Rechecked later today. Time-Based Coding :: [TOTAL MINUTES] spent with patient and on the chart (including review of chart, obtaining history, exam, reviewing outside data, placing orders, documenting exam and treatment plan, and counseling patient) on [DATE]. Quality VTE Deep Vein Thrombosis/Pulmonary Embolism Present on Admission: No
[2024-04-03] MEDS: FOLIC ACID 1 MG TABLET PO (09:20)
[2024-04-03] MEDS: PANTOPRAZOLE DR 20 MG TABLET PO (09:20)
--- NOTE | 2024-04-03 12:48 | PM.PN.IH.1 ---
Subjective Subjective Date Patient Seen: 04/03/24 Time Patient Seen: 12:48 Interval history: No complaints Tolerating diet Having bowel function Exam Vital Signs (past 8 hours): - 04/03/24 07:53 04/03/24 08:00 04/03/24 08:19 Temperature 98.1 F Pulse Rate 91 H Respiratory Rate 19 Blood Pressure 143/86 H 143/86 H Pulse Oximetry 93 93 Oxygen Delivery Method Room Air Oxygen Flow Rate 0 0 Oxygen Delivery Method Room Air Oxygen Flow Rate 0 Narrative Exam Narrative: Some purulent drainage in the collection bag Moderate erythema around the drain site, no bullae, nontender Objective Labs 04/02/24 09:50 04/03/24 04:00 Labs: Laboratory Results - last 24 hr 04/03/24 04:00 Sodium 132 L Potassium 4.1 Chloride 101 Carbon Dioxide 20 L BUN 9 Creatinine 0.97 Estimated GFR > 60 BUN/Creatinine Ratio 9.3 Glucose 100 Calcium 8.1 L Magnesium 1.8 PFSH Medical History Hypertension Hypothyroidism (acquired) PMR (polymyalgia rheumatica) Tuberculosis Social History household members: spouse Smoking Status: Current every day smoker alcohol intake: former Assessment & Plan Assessment and plan (1) Intra-abdominal abscess: Status: Acute Plan Continue drain and antibiotics for now Time-Based Coding :: [TOTAL MINUTES] spent with patient and on the chart (including review of chart, obtaining history, exam, reviewing outside data, placing orders, documenting exam and treatment plan, and counseling patient) on [DATE]. 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
--- NOTE | 2024-04-03 13:23 | CM.DPC ---
DCP COnt: Per Surgeon, pt having some flatus and small bm and able to ambulate some with FWW and can begin advancing diet but still with drain output and not yet medically stable to d/c at this time. Will continue IV-Abx and drain for today. Dana Guerrero MSW
[2024-04-03] MEDS: TRAZODONE 50 MG TABLET 25 MG PO (20:40)
[2024-04-03] MEDS: DONEPEZIL 5 MG TABLET PO (20:42)
[2024-04-03] MEDS: MELATONIN 3 MG TABLET PO (20:44)
[2024-04-03] MEDS: PRIMIDONE 50 MG TABLET PO (20:44)
[2024-04-03] MEDS: ZOLPIDEM 5 MG TABLET PO (21:33)
[2024-04-04] VITALS (9 sets, daily range): BP systolic 108–134; BP diastolic 73–85; PULSE 71–87; RESP 17–20; TEMP 36.3–36.6; O2SAT 94–96
[2024-04-04] MEDS: OXYCODONE IR 5 MG TABLET 10 MG PO (01:55)
[2024-04-04] MEDS: SODIUM CHLORIDE 0.9% 1,000 ML 82 ML IV ×2 (02:34→16:23)
[2024-04-04 04:22] LABS: Add Manual Diff / Slide Review NO; Basophils Absolute Auto 100 /uL (0-100); Basophils Percent Auto 0.5 % (0-2); Eosinophils Absolute Auto 200 /uL (0-450); Eosinophils Percent Auto 1.2 % (2-4); Hematocrit 33.7 % (41-53); Hemoglobin 11.1 g/dL (13.5-17.5); Lymphocytes Absolute Auto 700 /uL (1100-4500); Lymphocytes Percent Auto 5.3 % (25-40); Mean Corpuscular HGB Conc 32.8 % (30-36); Mean Corpuscular Volume 88.2 fL (80-100); Monocytes Absolute Auto 500 /uL (0-900); Monocytes Percent Auto 3.5 % (3-14); Neutrophils Absolute Auto 12000 /uL (1500-7000); Neutrophils Percent Auto 89.5 % (50-75); Platelet Count 489 X10^3/uL (150-400); Red Blood Cell Count 3.82 X10^6/uL (4.5-5.9); Red Cell Distribution Width 15.3 % (11.6-14.8); White Blood Cell Count 13.3 X10^3/uL (4.5-11.0)
[2024-04-04 04:31] LABS: Alanine Aminotransferase 36 IU/L (<50); Albumin 2.7 g/dL (3.5-5.0); Alkaline Phosphatase 91 U/L (38-126); Aspartate Aminotransferase 37 IU/L (17-59); BUN Creatinine Ratio 9.8 (6-22); Bilirubin Total 0.3 mg/dL (0.2-1.3); Blood Urea Nitrogen 12 mg/dL (9-20); Calcium 7.3 mg/dL (8.4-10.2); Carbon Dioxide 22 mmol/L (22-32); Chloride 104 mmol/L (98-107); Estimated Glomerular Filt Rate > 60 mL/min (>60); Globulin 2.8 g/dL (1.7-4.1); Glucose 148 mg/dL (80-110); HEMOLYSIS < 15 (0-50); Potassium 3.2 mmol/L (3.4-5.1); Sodium 133 mmol/L (137-145); Total Protein 5.5 g/dL (6.3-8.2)
[2024-04-04] MEDS: LEVOTHYROXINE 75 MCG TABLET PO (05:09)
[2024-04-04] MEDS: PANTOPRAZOLE DR 40 MG TABLET PO (05:09)
[2024-04-04] MEDS: LEVOTHYROXINE 100 MCG TABLET PO (05:09)
[2024-04-04] MEDS: PIPERACILLIN/TAZO 3.375 GM in SODIUM CHLORIDE 0.9% 100 ML IV (05:09)
--- NOTE | 2024-04-04 08:16 | P.PN_ITS ---
Subjective Subjective Date Patient Seen: 04/04/24 Time Patient Seen: 08:17 Interval history: Patient seen in follow-up of diverticular abscess, hypokalemia, hyponatremia. Overall patient is feeling okay. Sleeping couple hours of time was Ambien. Pain is an issue. Having more pain at night and it is borderline during the day. Otherwise started having diarrhea. With no other change or complaint. Exam Vital Signs (past 8 hours): - 04/04/24 02:00 04/04/24 07:46 Temperature 97.7 F 97.8 F Pulse Rate 87 77 Respiratory Rate 20 19 Blood Pressure 122/81 108/74 Pulse Oximetry 94 94 Oxygen Flow Rate 0 0 Oxygen Delivery Method Room Air Oxygen Flow Rate 0 Narrative Exam Narrative: Alert male no acute distress lying in bed. Lungs are clear. Heart is regular rate and rhythm without murmurs gallops rubs or gallops abdomen is still distended soft diffusely tender. Moderate in intensity. About the same as yesterday Objective Labs 04/04/24 04:00 04/04/24 04:00 Labs: Laboratory Results - last 24 hr 04/04/24 04:00 WBC 13.3 H RBC 3.82 L Hgb 11.1 L Hct 33.7 L MCV 88.2 MCH 29.0 MCHC 32.8 RDW 15.3 H Plt Count 489 H Neut % (Auto) 89.5 H Lymph % (Auto) 5.3 L [place] % (Auto) 3.5 Eos % (Auto) 1.2 L Baso % (Auto) 0.5 Neut # (Auto) 50016 H Lymph # (Auto) 700 L [place] # (Auto) 500 Eos # (Auto) 200 Baso # (Auto) 100 Sodium 133 L Potassium 3.2 L Chloride 104 Carbon Dioxide 22 BUN 12 Creatinine 1.22 Estimated GFR > 60 BUN/Creatinine Ratio 9.8 Glucose 148 H Calcium 7.3 L Total Bilirubin 0.3 AST 37 ALT 36 Alkaline Phosphatase 91 Total Protein 5.5 L Albumin 2.7 L Globulin 2.8 Albumin/Globulin Ratio 1.0 PFSH Medical History Hypertension Hypothyroidism (acquired) PMR (polymyalgia rheumatica) Tuberculosis Social History household members: spouse Smoking Status: Current every day smoker alcohol intake: former Assessment & Plan Assessment & Plan narrative: Diverticular abscess with perforation. White count slightly down. Symptoms about the same. Feeling about the same. Still having moderate abdominal pain. Not controlled with current pain medicines. Will discontinue Percocet go to Dilaudid. Discussed with surgeon yesterday. Will like to continue with tube until white counts down lower. Certainly trending down. Would suspect we will continue with current therapy until lower still. The question is whether pain will improve. At this point continue current therapy rate check CBC a.m.. Diarrhea. New onset. Given antibiotics will check C diff. Add probiotics and follow. Not clear whether this is secondary to just the inflamed bowel or whether or not though we have another issue. Will see what that shows. Hopefully that has not true. Hypokalemia. Back down to 3.2. Potassium added. Recheck a.m.. Hyponatremia. Mildly improved. Recheck a.m.. Dehydration. Resolved. Taking p.o. comfortably. Elevated LFTs. Resolved. Suspect secondary to infection. Acquired hypothyroidism. Continue current meds. History of depression. On usual meds. Doing well Polymyalgia rheumatica. On prednisone. DVT prophylaxis on Lovenox Code status full. Disposition. I suspect he is going to be here several more days. But will see how things go. Needs to pull needs to be stable once that happens. Long-term outlook I suspect he will need surgery but will see how things go. At least it would be more controlled. Time-Based Coding :: [TOTAL MINUTES] spent with patient and on the chart (including review of chart, obtaining history, exam, reviewing outside data, placing orders, documenting exam and treatment plan, and counseling patient) on [DATE]. Quality VTE Deep Vein Thrombosis/Pulmonary Embolism Present on Admission: No
[2024-04-04] MEDS: FOLIC ACID 1 MG TABLET PO (08:41)
[2024-04-04] MEDS: LOSARTAN 50 MG TABLET PO ×2 (08:41→21:14)
[2024-04-04] MEDS: ESCITALOPRAM 10 MG TABLET PO (08:41)
[2024-04-04] MEDS: CHLORTHALIDONE 25 MG TABLET PO (08:41)
[2024-04-04] MEDS: POTASSIUM CHLORIDE 20 MEQ TAB 40 MEQ PO ×2 (08:41→16:23)
[2024-04-04] MEDS: predniSONE 5 MG TABLET 10 MG PO (08:42)
[2024-04-04] MEDS: ENOXAPARIN 40 MG/0.4 ML SYRINGE SUBCUT (08:42)
[2024-04-04] MEDS: HYDROMORPHONE 2 MG TABLET 4 MG PO ×4 (08:42→21:14)
[2024-04-04 09:52] LABS: Clostridium Difficile Tox PCR Negative for C. diff (Negative)
[2024-04-04] MEDS: LACTOBACILLUS ACIDOPHILUS TABLET 1 EACH PO ×2 (12:19→16:23)
[2024-04-04] MEDS: cefTRIAXone 2,000 MG in SODIUM CHLORIDE 0.9% 100 ML 200 MG IV (12:19)
[2024-04-04 12:56] LABS: Adenovirus F 40/41 Not Detected (Not Detect); Astrovirus Not Detected (Not Detect); Campylobacter Not Detected (Not Detect); Clostridium difficile toxin AB Not Detected (Not Detect); Cryptosporidium Not Detected (Not Detect); Cyclospora cayetanensis Not Detected (Not Detect); Entamoeba histolytica Not Detected (Not Detect); Enteroaggregative E.coli Not Detected (Not Detect); Enteropathogenic E.coli Not Detected (Not Detect); Enterotoxigenic E.coli It/st Not Detected (Not Detect); Giardia lamblia Not Detected (Not Detect); Norovirus GI/GII Not Detected (Not Detect); Plesiomonsa shigelloides Not Detected (Not Detect); Rotavirus A Not Detected (Not Detect); Salmonella Not Detected (Not Detect); Sapovirus Not Detected (Not Detect); Shiga-like toxin-prod E.coli Not Detected (Not Detect); Shigella/Enteroinvasive E.coli Not Detected (Not Detect); Vibrio Not Detected (Not Detect); Vibrio cholerae Not Detected (Not Detect); Yersinia enterocolitica Not Detected (Not Detect)
--- NOTE | 2024-04-04 12:59 | CM.DPC ---
DCP Cont. Reviewed EMR and team rounds for status updates. Pt continues w/pain issues. Once pain is well managed, the plan is to begin working with therapies. Monitoring for any final d/c recs and needs.
--- NOTE | 2024-04-04 15:05 | PM.PN.IH.1 ---
Subjective Subjective Date Patient Seen: 04/04/24 Time Patient Seen: 15:05 Interval history: Doing well. Drain output has dropped off. White count is coming down. Exam Vital Signs (past 8 hours): - 04/04/24 07:46 04/04/24 08:41 04/04/24 13:34 Temperature 97.8 F 97.3 F L Pulse Rate 77 77 73 Respiratory Rate 19 17 Blood Pressure 108/74 108/74 117/73 Pulse Oximetry 94 94 Oxygen Flow Rate 0 0 Oxygen Delivery Method Room Air Oxygen Flow Rate 0 Narrative Exam Narrative: Drain with scant murky fluid Abdomen is soft, minimally tender Objective Labs 04/04/24 04:00 04/04/24 04:00 Labs: Laboratory Results - last 24 hr 04/04/24 04/04/24 04/04/24 04:00 08:55 09:55 WBC 13.3 H RBC 3.82 L Hgb 11.1 L Hct 33.7 L MCV 88.2 MCH 29.0 MCHC 32.8 RDW 15.3 H Plt Count 489 H Neut % (Auto) 89.5 H Lymph % (Auto) 5.3 L [place] % (Auto) 3.5 Eos % (Auto) 1.2 L Baso % (Auto) 0.5 Neut # (Auto) 01963 H Lymph # (Auto) 700 L [place] # (Auto) 500 Eos # (Auto) 200 Baso # (Auto) 100 Sodium 133 L Potassium 3.2 L Chloride 104 Carbon Dioxide 22 BUN 12 Creatinine 1.22 Estimated GFR > 60 BUN/Creatinine Ratio 9.8 Glucose 148 H Calcium 7.3 L Total Bilirubin 0.3 AST 37 ALT 36 Alkaline Phosphatase 91 Total Protein 5.5 L Albumin 2.7 L Globulin 2.8 Albumin/Globulin Ratio 1.0 Stl C. cayetanensis PCR Not detected Stool Rotavirus (PCR) Not detected Stool Adenovirus (PCR) Not detected Stool Astrovirus (PCR) Not detected Stool Cryptosporidium PCR Not detected Stl E.coli Shiga Tox PCR Not detected St Sh/Enteroin Ecoli PCR Not detected Stl Enterotoxigenic E PCR Not detected Stool EPEC (PCR) Not detected Stl E. histolytica PCR Not detected Stool Giardia Lamblia PCR Not detected Stool Sapovirus (PCR) Not detected Stl P. shigelloides PCR Not detected St Y.enterocolitica PCR Not detected Stool Vibrio (PCR) Not detected Stl Vibrio cholerae PCR Not detected Stl Enteroaggr Ecoli PCR Not detected Stl Norovirus GI/GII PCR Not detected Campylobacter (PCR) Not detected C. difficile Tox (PCR) Negative for c. diff Not detected Salmonella (PCR) Not detected PFSH Medical History Hypertension Hypothyroidism (acquired) PMR (polymyalgia rheumatica) Tuberculosis Social History household members: spouse Smoking Status: Current every day smoker alcohol intake: former Assessment & Plan Assessment and plan (1) Intra-abdominal abscess: Status: Acute Plan Remove drain Continue antibiotics Possible home tomorrow if white count is down to near normal range Time-Based Coding :: [TOTAL MINUTES] spent with patient and on the chart (including review of chart, obtaining history, exam, reviewing outside data, placing orders, documenting exam and treatment plan, and counseling patient) on [DATE]. 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
[2024-04-04] MEDS: DONEPEZIL 5 MG TABLET PO (21:14)
[2024-04-04] MEDS: PRIMIDONE 50 MG TABLET PO (21:14)
[2024-04-04] MEDS: ZOLPIDEM 5 MG TABLET PO (21:14)
[2024-04-04] MEDS: TRAZODONE 50 MG TABLET 25 MG PO (21:14)
[2024-04-04] MEDS: MELATONIN 3 MG TABLET PO (21:14)
--- NOTE | 2024-04-05 00:26 | PC.NURSE ---
NOC: Gauze and tape dressing on drain incision found mostly off, hanging by a piece of tape. Removed old dressing, replaced with bandaid. Pt resting comfortably, call light within reach, plan of care continues.
[2024-04-05 04:00] VITALS: BP 131/79; PULSE 75; RESP 18; TEMP 35.9; O2SAT 93
[2024-04-05] MEDS: SODIUM CHLORIDE 0.9% 1,000 ML 82 ML IV (04:10)
[2024-04-05 04:18] LABS: Add Manual Diff / Slide Review NO; Basophils Absolute Auto 0 /uL (0-100); Basophils Percent Auto 0.3 % (0-2); Eosinophils Absolute Auto 200 /uL (0-450); Eosinophils Percent Auto 1.5 % (2-4); Hematocrit 34.4 % (41-53); Hemoglobin 11.6 g/dL (13.5-17.5); Lymphocytes Absolute Auto 1000 /uL (1100-4500); Lymphocytes Percent Auto 8.7 % (25-40); Mean Corpuscular HGB Conc 33.7 % (30-36); Mean Corpuscular Hemoglobin 29.9 PG (26-34); Mean Corpuscular Volume 88.8 fL (80-100); Monocytes Absolute Auto 600 /uL (0-900); Monocytes Percent Auto 5.1 % (3-14); Neutrophils Absolute Auto 9600 /uL (1500-7000); Neutrophils Percent Auto 84.4 % (50-75); Platelet Count 557 X10^3/uL (150-400); Red Blood Cell Count 3.87 X10^6/uL (4.5-5.9); Red Cell Distribution Width 15.5 % (11.6-14.8); White Blood Cell Count 11.3 X10^3/uL (4.5-11.0)
[2024-04-05 04:33] LABS: Alanine Aminotransferase 39 IU/L (<50); Albumin 2.8 g/dL (3.5-5.0); Alkaline Phosphatase 80 U/L (38-126); Aspartate Aminotransferase 38 IU/L (17-59); BUN Creatinine Ratio 10.7 (6-22); Bilirubin Total 0.2 mg/dL (0.2-1.3); Blood Urea Nitrogen 11 mg/dL (9-20); Calcium 7.8 mg/dL (8.4-10.2); Carbon Dioxide 23 mmol/L (22-32); Chloride 104 mmol/L (98-107); Estimated Glomerular Filt Rate > 60 mL/min (>60); Globulin 2.9 g/dL (1.7-4.1); Glucose 116 mg/dL (80-110); HEMOLYSIS < 15 (0-50); Potassium 3.9 mmol/L (3.4-5.1); Sodium 132 mmol/L (137-145); Total Protein 5.7 g/dL (6.3-8.2)
[2024-04-05] MEDS: PANTOPRAZOLE DR 40 MG TABLET PO (05:07)
[2024-04-05] MEDS: HYDROMORPHONE 2 MG TABLET 4 MG PO ×3 (05:07→12:52)
[2024-04-05] MEDS: LEVOTHYROXINE 100 MCG TABLET PO (05:07)
[2024-04-05] MEDS: LEVOTHYROXINE 75 MCG TABLET PO (05:07)
[2024-04-05 07:56] VITALS: O2SAT 98
[2024-04-05 08:00] VITALS: BP 125/76; PULSE 71; RESP 14; TEMP 36.3; O2SAT 93
[2024-04-05] MEDS: ENOXAPARIN 40 MG/0.4 ML SYRINGE SUBCUT (09:44)
[2024-04-05] MEDS: FOLIC ACID 1 MG TABLET PO (09:45)
[2024-04-05] MEDS: ESCITALOPRAM 10 MG TABLET PO (09:45)
[2024-04-05] MEDS: CHLORTHALIDONE 25 MG TABLET PO (09:45)
[2024-04-05] MEDS: POTASSIUM CHLORIDE 20 MEQ TAB 40 MEQ PO (09:45)
[2024-04-05] MEDS: LACTOBACILLUS ACIDOPHILUS TABLET 1 EACH PO ×2 (09:46→12:46)
[2024-04-05] MEDS: predniSONE 5 MG TABLET 10 MG PO (09:46)
[2024-04-05] MEDS: LOSARTAN 50 MG TABLET PO (09:46)
[2024-04-05 12:00] VITALS: BP 121/80; PULSE 75; RESP 16; TEMP 36.2; O2SAT 93
[2024-04-05] MEDS: cefTRIAXone 2,000 MG in SODIUM CHLORIDE 0.9% 100 ML 200 MG IV (12:45)
--- NOTE | 2024-04-05 13:07 | PM.DS.1 ---
History of Present Illness History of Present Illness Date Patient Seen: 04/05/24 Time Patient Seen: 13:07 Date of Onset of Symptoms: 04/05/24 Chief complaint: Abd Pain/Dehydration Narrative: Patient is a 68-year-old male well known to me with history of depression and polymyalgia rheumatica who presents with abdominal pain. Patient was in his usual state of good health until Wednesday or Wednesday of last week when he began having severe diarrhea. With pretty significant abdominal cramping. Some nausea and vomiting but not consistent. No blood in his stool. The patient did have a fever. On Wednesday 101. Has not had a fever since. Not been able to eat. Taking some fluids. Diarrhea is resolved over 48 hours but he is continued to have severe abdominal pain. Was seen in clinic and blood [place] [address]. Patient continued to be followed and continued to have increasing pain. Presented with unable to eat drink although he has been having urination every 2 hours. Otherwise patient is basically just with the pain he describes it mostly as right side but seems to be everywhere. Gets worse with movement or vomiting. Patient otherwise has not been traveling. No one else in the family has been sick. Never had anything like this before. Has not had abdominal surgery. No other change or complaint. Patient has had no headaches. No chest pain. No shortness of breath no breathing issues. Does have a tiny bit of pain with urination. But no other change. Discharge Providers Provider Date of admission: 03/30/24 16:38 Discharge Date: 04/05/24 Primary care physician: Santosh Craven MD Consults: 03/30/24 22:15 Consult to Physician Routine Comment: Consulting Provider: [facility] Reason for consultation: diverticular abcess and perferation Has provider been notified: Yes Discharge provider: Santosh Craven MD Summary Hospital Course Discharge Diagnosis: Diverticular abscess with perforation Diarrhea Hypokalemia Hyponatremia Dehydration Elevated LFTs Hypothyroidism Depression Polymyalgia rheumatica Hospital Course: Diverticular abscess with perforation. Patient was brought in from clinic for abdominal pain severe lasting over 5 days. Patient had elevation of white count CT scan showed free air and abscess formation. With diffuse colon and small bowel irritation. Patient was placed on Zosyn and Flagyl and surgery was consulted. [place] we could try at least to see if he could not settle down without surgery and patient's white count remained stable over the 1st 24 hours. On day 2 he had IR drain placed into the abscess and IV antibiotics were continued. Surgery felt like things were going well he continued to actually improve and started taking p.o.. Pain was controlled initially with I the medications and was switched to Percocet which was not adequate switch to Dilaudid which helped. Patient continued to improve was taking p.o. well. With no nausea most of the time. Occasional. No other significant change. Surgery felt like he could go home with follow-up in a week. Will eventually need surgery. Concerning signs and symptoms discussed. Diarrhea. Patient developed diarrhea after taking oral food. C diff was obtained and found to have no significant issues he had no norovirus or other changes. Was felt to be secondary to his inflammation. Patient will continue to follow. Call if any change. But no treatment at this time. Only intermittent on day of discharge. Hypokalemia. Patient had pretty significant issues with hypokalemia during the time he was here. Initially started with IV replacement which resolved issue but came back on 48 hours. Was started on p.o. medications and actually remained stable. Will continue on oral medications and will be followed up in 48 hours with blood tests. Dehydration. Patient was aggressively hydrated over the 1st 72 hours. As he started taking p.o. he was considered to be euvolemic. And IV fluids were discontinued on days 3. No other changes. Elevated LFTs. Was noted to be elevated with no other changes. CT scan showed no abnormality. It was felt to be secondary to his intra-abdominal infection. Resolved over the course of his admission. History of depression. Stable throughout continue his usual meds Acquired hypothyroidism. Was started back on his medicines tolerated well. Polymyalgia rheumatica. Not active. Was started back on his prednisone seems to be doing well. Disposition he will be followed as an outpatient I will see him in 48 hours. He will call if worsening or change Exam Vital Signs (past 8 hours): - 04/05/24 07:56 04/05/24 08:00 04/05/24 12:00 Temperature 97.3 F L 97.2 F L Pulse Rate 71 75 Respiratory Rate 14 16 Blood Pressure 125/76 121/80 Pulse Oximetry 98 93 93 Oxygen Delivery Method Room Air Oxygen Flow Rate 0 0 0 Oxygen Delivery Method Room Air Oxygen Flow Rate 0 Narrative Exam Narrative: Alert male lying in bed in no acute distress lungs are clear heart is regular rate and rhythm abdomen is still distended more soft no rebound but still diffusely tender. No guarding. Extremities normal Objective Labs 04/05/24 04:04 04/05/24 04:04 Labs: Laboratory Results - last 24 hr 04/05/24 04:04 WBC 11.3 H RBC 3.87 L Hgb 11.6 L Hct 34.4 L MCV 88.8 MCH 29.9 MCHC 33.7 RDW 15.5 H Plt Count 557 H Neut % (Auto) 84.4 H Lymph % (Auto) 8.7 L [place] % (Auto) 5.1 Eos % (Auto) 1.5 L Baso % (Auto) 0.3 Neut # (Auto) 9600 H Lymph # (Auto) 1000 L [place] # (Auto) 600 Eos # (Auto) 200 Baso # (Auto) 0 Sodium 132 L Potassium 3.9 Chloride 104 Carbon Dioxide 23 BUN 11 Creatinine 1.03 Estimated GFR > 60 BUN/Creatinine Ratio 10.7 Glucose 116 H Calcium 7.8 L Total Bilirubin 0.2 AST 38 ALT 39 Alkaline Phosphatase 80 Total Protein 5.7 L Albumin 2.8 L Globulin 2.9 Albumin/Globulin Ratio 1.0 PFSH Medical History Hypertension Hypothyroidism (acquired) PMR (polymyalgia rheumatica) Tuberculosis Social History household members: spouse Smoking Status: Current every day smoker alcohol intake: former Discharge Assessment & Plan Assessment and Plan Assessment: Improved Plan of Treatment: Discharge home Discharge Plan Discharge Plan Patient Disposition: Home Discharge orders & Medications Prescriptions: New potassium chloride [Klor-Con M20] 20 mEq Tablet,Er Particles/Crystals 40 meq PO BIDWM Qty: 60 0RF Lactobacillus acidophilus 25 million cell Capsule 25,000,000 cell PO TIDWM Qty: 90 0RF amoxicillin-pot clavulanate [Augmentin XR] 1,000-62.5 mg tablet extended release 12 hr 1 tab PO BID Qty: 30 0RF Continued etodolac 400 mg tablet extended release 24 hr 400 mg PO DAILY prednisone 5 mg tablet 10 mg PO DAILY testosterone cypionate 200 mg/mL oil 200 mg IM Q14D levothyroxine 150 mcg tablet 175 mcg PO QAM Rx Instructions: once daily, everyother day alternate 175mcg and 200mcg donepezil 5 mg tablet 5 mg PO ONCE PM chlorthalidone 25 mg Tablet 25 mg PO DAILY escitalopram oxalate 10 mg tablet 10 mg PO DAILY losartan 50 mg tablet 50 mg PO BID fexofenadine 180 mg tablet 180 mg PO DAILY PRN (Reason: allergies) folic acid 1 mg Tablet 1 mg PO DAILY hydroxyzine HCl 25 mg Tablet 25 mg PO QID PRN (Reason: Itching) omeprazole 40 mg capsule,delayed release(DR/EC) 40 mg PO DAILY terbinafine HCl 250 mg tablet 250 mg PO DAILY PreserVision AREDS-2 1 cap PO DAILY primidone 50 mg Tablet 50 mg PO BEDTIME ondansetron HCl 4 mg Tablet 4 mg PO Q8H PRN (Reason: Nausea And Vomiting) semaglutide 0.25 mg or 0.5 mg (2 mg/3 mL) Pen Injector 0.25 mg SUBCUT QWEEK Rx Instructions: for 4 weeks albuterol 90 mcg/actuation Aerosol 90 mcg INHALATION Q4HR PRN (Reason: sob) betamethasone dipropionate 0.05 % Cream 1 applic TOPICAL DAILY hydrocortisone 2.5 % cream 1 applic topical DAILY ketoconazole 2 % Shampoo 1 applic TOPICAL Q OTHER DAY ketoconazole 2 % Cream 1 applic TOPICAL BID mometasone 0.1 % Cream 1 applic TOPICAL DAILY trazodone 25 mg PO BEDTIME aspirin 81 mg tablet,delayed release (DR/EC) 81 mg PO DAILY Follow up/Referrals: Santosh Craven MD [Primary Care Provider] - 04/07/24 2:45 pm (04/07 @ 2:45 check in for appointment with Dr Craven ) Discharge Health Status Multidrug resistant organism: No MDRO Diet/Activity/Treatments Diet: Diet as Tolerated Activity: as tolerated Skin/Wound/Dressing Care Report to your healthcare provider any signs of infection, such as:: chills, fever and increased pain Visit Report/Discharge Packet Instructions: Good Food Sources of Iron, Small Bowel Obstruction, [place] Diet, How to Prevent Falls, DI for Nausea -- Adult, DI for Prescription Opioid Use, DI for Intra-Abdominal Abscess Stand Alone Forms: Patient Portal/API, Stroke Signs & Symptoms Discharge Data Primary Care Provider: Santosh Craven VTE Deep Vein Thrombosis/Pulmonary Embolism Present on Admission: No
--- NOTE | 2024-04-05 14:18 | PC.NURSE ---
discharge paperwork reviewed at bedside with pt and spouse. is on hold w/ pharmacy ([facility]). Per Dr. Craven he was going to call in a pain medcation RX for patient. Advised to check on this with pharmacy to confirm medication was called in prior to departing from the hospital.
--- NOTE | 2024-04-07 06:22 | PC.NURSE ---
Late entry for 03/31/24: Administered 1 mg IV morphine at 00:40 per pt request.
== END 2024-04-05 15:15 | disposition home or self-care (01) | DRG 391 ==
PROVIDERS: Radiology Diagnostic Radiology; Surgery; Admitting Provider Family Medicine; Family Provider Family Medicine; PCP Family Medicine; Referring Provider Family Medicine; Visit Provider Family Medicine
DX: K57.20 Diverticulitis of large intestine with perforation and abscess without bleeding (principal); K65.1 Peritoneal abscess; E87.1 Hypo-osmolality and hyponatremia; F17.200 Nicotine dependence, unspecified, uncomplicated; M35.3 Polymyalgia rheumatica; I10 Essential (primary) hypertension; E86.0 Dehydration; R30.0 Dysuria; K21.9 Gastro-esophageal reflux disease without esophagitis; E03.9 Hypothyroidism, unspecified; F32.A Depression, unspecified; E87.6 Hypokalemia; G47.00 Insomnia, unspecified; R19.7 Diarrhea, unspecified; R74.01 Elevation of levels of liver transaminase levels; Z79.890 Hormone replacement therapy; Z79.52 Long term (current) use of systemic steroids; Z79.85 Long-term (current) use of injectable non-insulin antidiabetic drugs; R11.2 Nausea with vomiting, unspecified
CPT/HCPCS: 0241U; 36415; 49180; 74177; 77012; 80048; 80053; 81001; 82150; 83735; 85025; 85610; 85730; 87070; 87075; 87077; 87186; 87205; 87493; 87507; 94760; J0696; J1171; J1650; J2060; J2270; J2405; J2470; J2543; J2765; Q9967

== ENCOUNTER → 2024-04-07 16:01 | Outpatient (CLI) | payer MEDICARE, OTHER, SELFPAY ==
[2024-03-30 16:44] VITALS: BMI 29.2
--- NOTE | 2024-04-07 16:02 | DI.CT.S_ITS ---
PROCEDURE: CT ABDOMEN PELVIS W CON INDICATIONS: diverticulitis TECHNIQUE: After the administration of intravenous contrast, axial sections acquired from the lung bases to the pubic symphysis. Coronal and sagittal reformats were performed. For radiation dose reduction, the following was used: automated exposure control, adjustment of mA and/or kV according to patient size. COMPARISON: [facility], CT, CT ABDOMEN PELVIS W CON, 03/30/2024, 19:00. FINDINGS: Image quality: Diagnostic Lower chest: Scattered scarring and atelectasis. Trace effusions and bibasilar atelectasis. Overall heart size within normal limits. Trace pericardial effusion Liver: Unremarkable Gallbladder and biliary system: Unremarkable, nondilated Pancreas: No ductal dilation. Duodenal diverticula are seen adjacent to the ampulla, confirmed with gas on prior CT. Spleen: Nonenlarged Adrenals: No discrete nodules Kidneys: Scattered renal cysts. Subcentimeter lesions are too small to characterize. No complicated or solid lesion identified Vessels and lymph nodes: Atherosclerotic calcifications and noncalcified plaque, overall moderate in degree. Main portal vein appears patent. No pathologic lymphadenopathy by size criteria. Bowel and peritoneum: No evidence of small bowel obstruction. No pathologic ascites. There are colonic diverticula, most significant in the sigmoid, with wall thickening. Pericolonic fluid collection is seen measuring 2.1 cm (4/50) [id number] wall thickening and submucosal edema is seen in the proximal colon and adjacent terminal ileum. There is edematous fat stranding at the right paracolic gutter. Gas is seen in the appendiceal tip, which is mildly distended at 9 mm, favored to be reactive In the lower right paracolic gutter, there is a fluid collection containing gas measuring 5.7 x 3 cm, decreased from prior. Mild degree of remaining pneumoperitoneum Body wall: Small fat containing umbilical hernia, containing mildly congested omentum. Pelvis: Bladder is unremarkable. Prostate is unremarkable on limited CT evaluation Bones: No acute or suspicious osseous finding. There are degenerative changes. IMPRESSION: Previous right lower quadrant/paracolic gutter fluid collection is decreased. A remnant collection however remains containing gas, measuring up 5.7 x 3 cm. Right paracolic gutter inflammatory edematous fat stranding. There is also imaging suggestion of proximal colitis and terminal ileitis. Colonic diverticula with wall thickening of the sigmoid colon. There is a pericolonic fluid collection adjacent to the sigmoid measuring 2.1 cm. Consider colonoscopy correlation and GI follow-up following clinical treatment. Mild remaining pneumoperitoneum. No free flowing ascites. Dilated appendix with distal gas, implying luminal patency, favored to be reactive to surrounding inflammation. Other findings above. Dictated by: Ambrocio Vazquez M.D. on 04/08/2024 at 13:16 Approved by: Ambrocio Vazquez M.D. on 04/08/2024 at 13:25
== END ==
PROVIDERS: Family Provider Family Medicine; PCP Family Medicine; Referring Provider Surgery; Visit Provider Surgery
DX: K65.1 Peritoneal abscess (principal); K57.10 Diverticulosis of small intestine without perforation or abscess without bleeding; K57.30 Diverticulosis of large intestine without perforation or abscess without bleeding; N28.1 Cyst of kidney, acquired; I25.10 Atherosclerotic heart disease of native coronary artery without angina pectoris; K42.9 Umbilical hernia without obstruction or gangrene
CPT/HCPCS: 74177; Q9967

== ENCOUNTER → 2024-05-03 09:10 | Outpatient (CLI) | payer MEDICARE, OTHER, SELFPAY ==
--- NOTE | 2024-05-03 10:21 | DI.CT.S_ITS ---
PROCEDURE: CT ABDOMEN PELVIS W CON INDICATIONS: Diverticulitis TECHNIQUE: After the administration of intravenous contrast, axial sections acquired from the lung bases to the pubic symphysis. Coronal and sagittal reformats were performed. For radiation dose reduction, the following was used: automated exposure control, adjustment of mA and/or kV according to patient size. COMPARISON: [facility], CT, CT ABDOMEN PELVIS W [facility], 03/30/2024, 19:00. [facility], CT, CT ABDOMEN PELVIS W [facility], 04/07/2024, 17:10. FINDINGS: Image quality: Diagnostic. Lower Chest: No significant findings. ABDOMEN: Liver: No solid mass. Gallbladder: No radiopaque gallstones or wall thickening. Biliary ducts: No biliary dilation. Pancreas: No ductal dilation. Spleen: Size is within normal limits. Adrenal Glands: No adrenal nodules. Kidneys and Ureters: No hydronephrosis. No solid mass. No complex renal cystic lesion which requires follow up. Stomach and Bowel: Normal colonic caliber, without significant wall thickening. Small duodenal diverticula. Scattered colonic diverticuli. Circumferential wall thickening involving the sigmoid colon is stable compared to prior exam. Mild circumferential wall thickening involving several loops of small bowel in the right lower quadrant. Possible fistula between are right lower quadrant loop of small bowel and right lower quadrant abscess. The appendix is normal. Peritoneum: There is a 2.5 x 4.5 x 2.2 centimeter peripherally enhancing fluid collection with internal air locules in the right lower quadrant/pericolic gutter compatible with abscess which is decreased in size compared to April 07, 2024. No free intraperitoneal air. Ventral Wall: No significant ventral hernia. Abdominal Nodes: No retroperitoneal or mesenteric adenopathy by size criteria. Vessels: Aorta and inferior vena cava are normal in size. Scattered atherosclerotic calcifications involving the abdominal and pelvic vasculature. PELVIS: Pelvic Organs: Unremarkable. Bladder: No bladder wall thickening, accounting for underdistention. Pelvic Nodes: No enlarged lymph nodes. Miscellaneous: No inguinal hernias are seen. Bones: No aggressive osseous abnormality. Spine degenerative disc disease and facet arthropathy. IMPRESSION: 2.5 x 4.5 x 2.2 centimeter right lower quadrant/right pericolic gutter abscess decreased in size compared to April 07, 2024. Resolved pneumoperitoneum. New Circumferential wall thickening involving loops of small bowel in the right lower quadrant which could represent reactive change or could be related to inflammatory bowel disease including Crohn's. Possible fistula between right lower quadrant loop of small bowel and right lower quadrant abscess. Numerous colonic diverticula with sigmoid colon circumferential wall thickening a could reflect mild diverticulitis. Dictated by: Nancy Turner MD, PhD on 05/03/2024 at 12:59 Approved by: Nancy Turner MD, PhD on 05/03/2024 at 13:12
--- NOTE | 2024-05-05 10:51 | DIET.CONS ---
Dietary Consultation Note ERAS Protocol - Dietitian Consult Consult date: 05/05/24 Assessment: Dietitian consulted per ERAS protocol. Consult was completed over phone with patient. UBW: Alberto reports being on semaglutide since Oct 2023, which was then stopped mid Mar 2024. While on medication he lost 38 lb (235 lb to 197 lb now, 15% intentional weight loss in 4 months) Weight on 03/30/24 per EMR is 200 lb. Weight appears to be stable since stop of semaglutide with non-severe weight loss of 1.5% from 03/30/24 to now. Diet recall: 2 meals of animal protein and sometimes salad, not doing carbohydrates, is doing 50-60% of normal PO intake d/t lack of appetite d/t discomfort Pt has received pre-op drinks and instructions on drinks and pre-op CLD. Reviewed the following topics: -Optimizing nutrition leading up to surgery, low fiber with diverticulitis -Clear liquid diet 2 days pre-op -Ensure Pre-Surgery Drink- timing and purpose -Post-op diet progression Dietitian will f/u and monitor patient post-surgery while inpatient. Electronically Signed by: Pam Murcia 05/05/24 10:51 Clinical Dietitian [address] [address]
== END ==
PROVIDERS: Family Provider Family Medicine; PCP Family Medicine; Referring Provider Surgery; Visit Provider Surgery
DX: K65.1 Peritoneal abscess (principal); K57.30 Diverticulosis of large intestine without perforation or abscess without bleeding; K57.10 Diverticulosis of small intestine without perforation or abscess without bleeding
CPT/HCPCS: 74177; Q9967

== ENCOUNTER 2024-05-10 06:06 | Inpatient (IN) | payer MEDICARE, OTHER, SELFPAY ==
[2024-05-10] VITALS (12 sets, daily range): BP systolic 100–119; BP diastolic 63–82; PULSE 96–128; RESP 11–20; TEMP 36.6–37.5; O2SAT 92–100; BMI 27.3; BMI 27.2
--- NOTE | 2024-05-10 | PATH_ITS ---
[facility] Accession Number: [id number] No. of containers..01 Tissue . 01 Material submitted: . colon - SIGMOID COLON . 01 Diagnosis: SIGMOID COLON, SEGMENTAL RESECTION: Segment of colon with active inflammation, ulceration, acute hemorrhagic serositis, organizing fat necrosis and foreign body associated giant cell reaction. See comment. No evidence of infectious organisms and malignancy. Four unremarkable lymph nodes. MRV 05/12/2024 1721 Local . 01 Comment: Findings are compatible with diverticular associated disease. . 01 Electronically signed: . Radha Parisi MD, Pathologist NPI- [id number] . 01 Gross description: . Received in formalin with two patient identifiers and sigmoid colon, is an unoriented segment of bowel, 16.2 cm in length by 3.2 cm in average diameter, and adipose extending out to 6.1 cm. The serosa is congested and roughened with no perforations immediately identified. One staple line is inked blue, the opposite staple line is inked black, and the mesenteric margin is inked green . The lumen contains a small amount of mucohemorrhagic material. The mucosa is pink-robison and velvety with normal appearing folds and no lesions identified. The diego average 0.4 cm thick with multiple diverticula up to 1.2 cm in depth. No lesions or perforations are identified upon sectioning. Palpation reveals eight robison lymph node candidates, 0.2-0.9 cm in greatest dimension. . Body Joiner sections are submitted as follows: A1: Rep margins en face. A2-A3: Diverticula. A4-A5: Normal full thickness sections. A6: Two intact lymph node candidates. A7: Three intact lymph node candidates. A8: Three intact lymph node candidates. ([id number]) /MRV 05/11/2024 1807 Local . 01 Pathologist provided ICD-10: K52.89 . 01 CPT . 374269 Specimen Comment: A courtesy copy of this report has been sent to [phone] Performed at: [address] [id number] MD Jason Zafar MD Phone: [phone]
[2024-05-10] MEDS: LACTATED RINGERS 1,000 ML 42 ML IV ×3 (07:11→12:08)
[2024-05-10] MEDS: ACETAMINOPHEN 325 MG TABLET 975 MG PO (07:13)
--- NOTE | 2024-05-10 07:45 | P.HP_ITS ---
History of Present Illness History of Present Illness Date Patient Seen: 05/10/24 Time Patient Seen: 07:45 Chief complaint: Lap Ass. Sigmoid Colectomy Narrative: Alberto is a 68-year-old man with diverticulitis. See the office note from April for details. [facility] Medical History (Updated 05/03/24 @ 12:19 by Jessy Duval RN) Nocturnal hypoxemia Hearing loss SARA (obstructive sleep apnea) (2021) Hypertension Hypothyroidism (acquired) PMR (polymyalgia rheumatica) Tuberculosis (~1999) Surgical History (Updated 05/02/24 @ 10:41 by Jessy Duval RN) H/O vasectomy Hx of LASIK Hx of blepharoplasty Hx of bilateral cataract extraction Hx of tonsillectomy Hx of neck surgery (~1999) Social History household members: spouse Smoking Status: Former smoker alcohol intake: former Meds Home Medications and Allergies Home Medications Medication Instructions Recorded Confirmed Type etodolac 400 mg tablet,extended 400 mg PO DAILY 02/19/21 05/10/24 History release 24 hr prednisone 5 mg tablet 10 mg PO DAILY 02/19/21 05/02/24 History testosterone cypionate 200 mg/mL 200 mg IM Q30D 02/19/21 05/10/24 History intramuscular oil aspirin 81 mg tablet,delayed 81 mg PO DAILY 01/15/22 05/10/24 History release levothyroxine 150 mcg tablet 200 mcg PO QAM 01/15/22 05/02/24 History chlorthalidone 25 mg tablet 25 mg PO DAILY 03/30/24 05/02/24 History donepezil 5 mg tablet 5 mg PO ONCE PM 03/30/24 05/10/24 History escitalopram oxalate 10 mg tablet 15 mg PO DAILY 03/30/24 05/10/24 History fexofenadine 180 mg tablet 180 mg PO DAILY PRN allergies 03/30/24 05/10/24 History folic acid 1 mg tablet 1 mg PO DAILY 03/30/24 05/02/24 History hydroxyzine HCl 25 mg tablet 25 mg PO QID PRN Itching 03/30/24 05/10/24 History ketoconazole 2 % shampoo 1 applic topical Q OTHER DAY 03/30/24 05/02/24 History ketoconazole 2 % topical cream 1 applic topical BID 03/30/24 05/02/24 History losartan 50 mg tablet 50 mg PO BID 03/30/24 05/02/24 History mometasone 0.1 % topical cream 1 applic topical DAILY 03/30/24 05/02/24 History omeprazole 40 mg capsule,delayed 40 mg PO DAILY 03/30/24 05/02/24 History release ondansetron HCl 4 mg tablet 4 mg PO Q8H PRN Nausea And Vomiting 03/30/24 05/10/24 History primidone 50 mg tablet 50 mg PO BEDTIME 03/30/24 05/02/24 History terbinafine HCl 250 mg tablet 250 mg PO DAILY 03/30/24 05/02/24 History Lactobacillus acidophilus 25 25,000,000 cell PO TIDWM #90 caps 04/05/24 05/02/24 Rx million cell capsule metronidazole 500 mg tablet 500 mg PO TID #3 tabs 04/21/24 05/10/24 Rx neomycin 500 mg tablet 1 g (2 x 500 mg) PO TID 3 doses #6 04/21/24 05/10/24 Rx tabs ciprofloxacin HCl 500 mg tablet 500 mg PO BID 05/02/24 05/10/24 History (Cipro) hydromorphone 4 mg tablet 4 mg PO Q3H PRN Pain 05/02/24 05/10/24 History (Dilaudid) trazodone 50 mg tablet 50 - 100 mg PO BEDTIME 05/02/24 05/02/24 History albuterol sulfate 90 mcg/actuation 2 puff inhalation 6XD PRN 05/10/24 05/10/24 History aerosol inhaler Shortness Of Breath Allergies Allergy/AdvReac Type Severity Reaction Status Date / Time No Known Drug Allergies Allergy Verified 04/19/24 15:33 Exam Vital Signs (past 8 hours): - 05/10/24 07:06 Temperature 97.8 F Pulse Rate 101 H Respiratory Rate 17 Blood Pressure 114/75 Pulse Oximetry 100 Oxygen Delivery Method Room Air Oxygen Delivery Method Room Air Const General: No acute distress Assessment & Plan Assessment and plan (1) Diverticulitis large intestine: Qualifiers: Diverticulitis bleeding: without bleeding Diverticulitis complication: with perforation and abscess Qualified Code(s): K57.20 - Diverticulitis of large intestine with perforation and abscess without bleeding Status: Acute Plan Laparoscopic-assisted sigmoid colectomy Time-Based Coding :: [TOTAL MINUTES] spent with patient and on the chart (including review of chart, obtaining history, exam, reviewing outside data, placing orders, documenting exam and treatment plan, and counseling patient) on [DATE]. PROFEE Geotechnical Engineer Document charge(s): No
[2024-05-10] MEDS: AMPICILLIN/SULBACTAM 3 GM 3 GM in SODIUM CHLORIDE 0.9% 100 ML IV ×2 (08:12→11:10)
--- NOTE | 2024-05-10 08:20 | SUR.OPER ---
Lithotomy on padded OR bed. Alvo Pad Positioner under torso. Head on pillow, arms padded and tucked at sides. Legs secured in padded yellow fins stirrups.
[2024-05-10] MEDS: BUPIVACAINE 0.5% W/ EPI (PF) 30 ML VIAL INJ (08:37)
[2024-05-10] MEDS: BUPIVACAINE LIPOSOME 266 MG/20 ML VIAL INJ (11:06)
--- NOTE | 2024-05-10 12:22 | P.OP_ITS ---
Operative Date/Time/Diagnoses Date of procedure: 05/10/24 Time of procedure: 12:22 Pre-op diagnosis: Diverticulitis Post-op diagnosis: same Procedure & Clinicians Procedure: Laparoscopic-assisted sigmoid colon resection Same procedure as scheduled: Yes Surgeon: Tin Barillas Internal Audit Consultant: Donal Veras Anesthesia Type: General Operative Notes Procedure in detail: The patient was given Unasyn. The patient was brought to the operating room, placed on the table in the supine position and general endotracheal anesthesia was induced. Charles catheter was inserted and the legs were placed in stirrups. The abdomen was prepped and draped in the usual fashion and a time-out was performed. We made a 1 cm infraumbilical incision and a Hutchinson port was placed. The abdomen was insufflated in the usual manner. The camera was inserted no eviden ce of an injury was seen. Next we placed 5 mm ports in the right lower quadrant, right upper quadrant left upper quadrant, left lower quadrant and subxiphoid position. There were significant adhesions of colon and small bowel throughout the lower abdomen. We started to take down some of the small bowel adhesions to the right lower quadrant abdominal wall using laparoscopic scissors. We then started to reflect the sigmoid colon along the white line of Toldt. We then continued the dissection to the splenic flexure and performed a complete takedown of the splenic flexure including the distal transverse colon. There was extensive inflammation and adhesions involving the sigmoid colon crossing over the pelvic brim. There was also a significant inflammation and adhesions in the right lower quadrant where the abscess cavity had been. There was a small amount of purulent fluid that was suctioned away once the abscess cavity was entered. No appendix was visualized along the cecum. We created a low midline incision and continued the dissection using a finger fracture technique. The sigmoid colon was eventually mobilized down to the upper rectum and completely and resected using 2 firings of the contour stapler. The mesentery was divided using the LigaSure. The specimen demonstrated thickening and induration of the distal sigmoid consistent with the diagnosis. We then created a colorectal anastomosis using the 31 mm EEA stapler. The donuts were intact and the leak test was negative for leak. We irrigated the pelvis with 2 L of sterile saline. We placed a 19 round Ward drain along the right pericolic gutter and lower abdomen and brought it out through the left lower quadrant port site. There was a serosal tear involving a loop of small bowel that was densely adherent to the anterior abdominal wall, possibly where the drain had been and this was closed with 3 interrupted 3-0 silk sutures in a transverse fashion. Finally, Exparel was injected into the pre and post fascial planes. The fascia was then closed using a running 0 PDS suture supported by multiple interrupted 0 Vicryl internal retention sutures. The patient was awakened and brought to recovery room. Donal FLORES provided assistance with exposure, retraction and closure of incisions. Specimen: Sigmoid colon EBL: 30 mL Post-operative Condition: stable Disposition: PACU
[2024-05-10] MEDS: INSULIN REGULAR 100 UNIT/ML 3 ML VIAL IV (12:46)
[2024-05-10] MEDS: ONDANSETRON 4 MG/2 ML INJ IV (13:47)
[2024-05-10] MEDS: ACETAMINOPHEN 325 MG TABLET 650 MG PO ×2 (13:47→21:17)
[2024-05-10] MEDS: LACTATED RINGERS 1,000 ML 100 ML IV (13:48)
[2024-05-10] MEDS: hydrOXYzine HCL 25 MG TABLET PO (16:54)
[2024-05-10] MEDS: HYDROMORPHONE 0.5 MG INJ IV ×2 (18:31→21:20)
[2024-05-10] MEDS: DONEPEZIL 5 MG TABLET PO (21:17)
[2024-05-10] MEDS: LOSARTAN 50 MG TABLET PO (21:18)
[2024-05-10] MEDS: PRIMIDONE 50 MG TABLET PO (21:18)
--- NOTE | 2024-05-11 05:23 | PC.NURSE ---
Late entry 05/11/23: LR @ 100, new bag at 23:30.
[2024-05-11 05:34] LABS: Add Manual Diff / Slide Review NO; Basophils Absolute Auto 100 /uL (0-100); Eosinophils Absolute Auto 100 /uL (0-450); Eosinophils Percent Auto 0.9 % (2-4); Hematocrit 33.3 % (41-53); Hemoglobin 11.5 g/dL (13.5-17.5); Lymphocytes Absolute Auto 600 /uL (1100-4500); Lymphocytes Percent Auto 6.4 % (25-40); Mean Corpuscular HGB Conc 34.5 % (30-36); Mean Corpuscular Hemoglobin 30.5 PG (26-34); Mean Corpuscular Volume 88.3 fL (80-100); Monocytes Absolute Auto 800 /uL (0-900); Monocytes Percent Auto 7.9 % (3-14); Neutrophils Absolute Auto 8400 /uL (1500-7000); Neutrophils Percent Auto 83.8 % (50-75); Platelet Count 412 X10^3/uL (150-400); Red Blood Cell Count 3.78 X10^6/uL (4.5-5.9); Red Cell Distribution Width 15.9 % (11.6-14.8)
[2024-05-11] MEDS: LEVOTHYROXINE 100 MCG TABLET 200 MCG PO (06:01)
[2024-05-11] MEDS: PANTOPRAZOLE DR 40 MG TABLET PO (06:01)
[2024-05-11] MEDS: HYDROMORPHONE 0.5 MG INJ IV ×7 (06:03→22:34)
[2024-05-11 06:37] LABS: BUN Creatinine Ratio 16.5 (6-22); Blood Urea Nitrogen 14 mg/dL (9-20); Carbon Dioxide 23 mmol/L (22-32); Chloride 102 mmol/L (98-107); Estimated Glomerular Filt Rate > 60 mL/min (>60); HEMOLYSIS < 15 (0-50); Sodium 132 mmol/L (137-145)
[2024-05-11 06:52] LABS: Calcium 7.8 mg/dL (8.4-10.2); Glucose 119 mg/dL (80-110); Potassium 2.8 mmol/L (3.4-5.1)
[2024-05-11 08:12] VITALS: BP 110/71; PULSE 93; RESP 16; TEMP 36.7; O2SAT 96
[2024-05-11] MEDS: NAPROXEN 250 MG TABLET PO (08:22)
[2024-05-11] MEDS: ACETAMINOPHEN 325 MG TABLET 650 MG PO ×3 (08:22→18:53)
[2024-05-11] MEDS: hydrOXYzine HCL 25 MG TABLET PO ×2 (08:22→18:53)
[2024-05-11] MEDS: predniSONE 5 MG TABLET 10 MG PO (08:22)
[2024-05-11] MEDS: POTASSIUM CHLORIDE 20 MEQ TAB 40 MEQ PO ×2 (08:40→17:23)
[2024-05-11] MEDS: LACTATED RINGERS 1,000 ML 100 ML IV ×2 (08:44→17:21)
[2024-05-11] MEDS: ONDANSETRON 4 MG/2 ML INJ IV (08:45)
[2024-05-11] MEDS: ESCITALOPRAM 10 MG TABLET 15 MG PO (08:52)
--- NOTE | 2024-05-11 11:02 | CM.DANOTE ---
Patient is a 68 yo male who was admitted INPT Status on 05/10/24 for planned Lap Sigmoid Colectomy due to Diverticulitis. Per Surgeon, pt was admitted last month in Apr for abd pain and diverticulitis and discharged home with plan to return for this planned surgery. Pt tolerated surgery well on currently on clears and will slowly advance diet and see how pt tolerates and bowel function to return before stable for d/c home, likely another 1-2 days pending progress. Pt's Primary Care Provider is Dr. Santosh Craven and insurance is Medicare and [employer]. DCP met w/patient at bedside; introduced self and role. Patient was found in bed, alert and oriented, cooperative with assessment. Pt confirmed living at home in [place] with his and good support in . Pt expressed preference in discharging home when stable and does not anticipate any further needs at d/c and has no history of SNF Rehab or home health, does not anticipate need for referral at this time. Pt confirms that after his recent discharge home in Apr with spouse that they were managing well and no needs arose. Plan: Anticipating home with spouse to transport when medically stable. CM team will follow closely for coordination of discharge plans. CLAYTON Ortega Discharge Planning/Care Management CM Discharge Assessment Start: 05/11/24 10:59 Freq: Status: Active Protocol: Document 05/11/24 10:59 BF (Rec: 05/11/24 11:02 [id number]) Discharge Planning Assessment Assigned Artificial Inseminator CLAYTON Cortez DPOA/Assigned Designee Name spouse Danielle Contact Information [phone] Advance Directives? Yes Advance Directives on File No History Provided By Patient,Family Member,Medical Record Has Patient been admitted in last 30 No days? Comment Just discharged home on Apr 05, 2024 to home with spouse Prior Living Arrangements House Household Members spouse Type of transporation used prior to Drives own vehicle admit Independent with ADL's Yes Is patient alert and oriented? Yes Caregiver for Another No Barriers to Discharge No Comment Home w/spouse upon medical clearance Discharge Plan Home Transportation Arrangement Spouse Referrals Initiated None needed Additional Comment At this time Whiteboard Updated in Patient Room with Yes name and ext. # of Artificial Inseminator Review Status In Process Please Provide Date Initial DC 05/11/24 Assessment Was Performed Next Review Type Continued Stay Review Pre-Anesthesia Assessment Start: 05/02/24 09:44 Freq: Status: Active Protocol: Document 05/02/24 11:47 CAB (Rec: 05/02/24 12:00 CAB [id number]) Pre-Anesthesia Assessment PAC Comment Phone assess 05/02/24 Patient Information Reviewed Via Phone Assessment Assessment Completed With Patient,Spouse Primary Care Provider Santosh Craven Seen Specialist in Last 12 Months Yes Specialist Seen General surgeon,Other Comment Neurology visit 09/22/23 scanned and in surgery folder Primary Language Urdu Preferred Language Urdu Engine Manager Required No Height 176.53 cm Hearing Ability Hearing Impaired,Use of Hearing Aid Visual Assist Glasses Dentition Type Teeth, Natural Present Barriers to Learning Memory Hx Anesthesia Reactions Yes: Woke up during a colonoscopy Hx Family Anesthesia Reaction No Hx Malignant Hyperthermia No Hx Blood Transfusions No Hx Blood Transfusion Reaction No Anesthesia Review Requested No Marketing Summer Intern No alcohol intake former Smoking Status Former smoker Tobacco type cigars how long ago did patient quit smoking 2020 Substance Use Type [#R] marijuana,other Comment Pt advised not to smoke marijuana 24 hours prior Pain Present Pain Reported Comment Abdominal Musculoskeletal Symptoms Back Pain,Neck Pain History of Falling (Recent or History of Yes ) Patient is completely paralyzed or No completely immobile Mental Status Oriented to own ability Is patient on oxygen? No: Nocturnal hypoxia ' - did not report using 02 Does patient have VÁZQUEZ/SOB No Hx Sleep Apnea Yes: Does not use CPAP after 37lb weight loss CPAP/BIPAP use not prescribed Comment Last Pulmonary visit 2021 scanned and in surgery folder Currently Taking a Beta Dana No Can You Climb a Flight of Stairs Without Yes SOB Hx Chest Pain No Hx SOB No Hx Syncope or Dizziness No Anti-Coagulant Therapy Yes: ASA 81mg- pt will check w /PCP if to hold or continue Has a Oim Architect No Cardiac Testing No Hx Pacemaker/ICD No Pacemaker Rep Required? No Cardiac Clearance Received No Diet Type At Home Regular Dysphagia No Gastrointestinal Symptoms Abdominal Pain,Diarrhea Bladder Pattern Urgency Urinary Catheter Present No Hx Urinary Self Catheterization No Diabetes No Hx Drug Resistant Organism No Presence of External or Internal Medical Yes: Lopez eye IOLs, hearing Devices aids Month and year received flu vaccine 12/2020 Received a COVID vaccine? Yes Comment No covid symptoms 8 weeks Marital Status Lives With spouse Current Living Arrangements House Support System Spouse Patient Discharge Plan Description Return Home Comment Pt advised 3-5 day length of stay per surgeon Feels Safe in Current Environment Yes Been Physically Hurt or Threatened By a No Person in Current Environment Do you have thoughts of harming yourself None or others? Are you currently considering suicide? No Do you have a plan to hurt yourself or No Plan others? Do You Have Any Spiritual Beliefs That No May Affect Your HC Choices? Do You Have Any Cultural Practices That No May Affect Your HC Choices? Comment Islam Who Can We Speak to About Patient's Care Family, friends Identifying Code for Release of Patient Declines to issue Information Health Care Proxy/Next of Kin Kit () Health Care Proxy Emergency Contact Name Kit Krzysztof Emergency Contact Phone Number Kit () Advance Directives? Yes Advance Directives on File No Power of Technologist Infectious Disease No PAC Instructions Durable medical equipment, Medications to take/avoid,No ETOH/petroleum product on skin DOS,NPO,Post-op transportation,Pre-op antibiotic,Pre-surgical wash, Sensory aids,Sturdy shoes/ comfortable clothes,Do not bring valuables and remove jewelry
--- NOTE | 2024-05-11 11:15 | DIET.CONS ---
Dietary Consultation Note Admission Date: 05/10/2024 06:06 Assessment: 68 y M admitted post op lap sigmoid colectomy. Nutrition screened as part of ERAS protocol consult. Met with pt at bedside who is able to do some sips of liquids, but lacks appetite. UBW: Alberto reports being on semaglutide since Oct 2023, which was then stopped mid Mar 2024. While on medication he lost 38 lb (235 lb to 197 lb now, 15% intentional weight loss in 4 months) Weight on 03/30/24 per EMR is 200 lb. Right before admission was 187 lb Diet recall: At home was doin meals of animal protein and sometimes salad, not doing carbohydrates, is doing 50-60% of normal PO intake d/t lack of appetite d/t discomfort Nutrition focused physical exam performed with no significant findings. Ht: 176.53 cm Wt: 85 kg BMI: 27.2 UBW: 91 kg on 03/30/24 (-6.5% weight loss within 6 wks, non-severe) 102.058 on 11/06/23 -pt was on semaglutide from this time to Mar Last BM: 05/09/24 (05/10/24 13:17) MNA: 14 Rome Score: 20 Diet: 05/10/24 Dinner Clear Liquid Diet Diet Modifications: Labs: RBC 3.78 X10^6/uL (4.5-5.9) L 05/11/24 04:48 Hgb 11.5 g/dL (13.5-17.5) L 05/11/24 04:48 Hct 33.3 % (41-53) L 05/11/24 04:48 Creatinine 0.85 mg/dL (0.66-1.25) 05/11/24 04:48 Nutrition Diagnosis: Inadequate oral intake r/t alterations in GI tract aeb <60% of PO intakes for 6 wks Unintentional weight loss r/t inadequate oral intake aeb -6.5% weight loss within 6 wks, non-severe Interventions: -Monitoring diet progression per surgery EER: [id number] kcals (22-24 kcals/kg per BMI v. MSJx1.25) 85 g protein (1g/kg) Electronically Signed by: Pam Murcia 05/11/24 11:[address] [address]
--- NOTE | 2024-05-11 11:43 | P.PN_ITS ---
Subjective Subjective Date Patient Seen: 05/11/24 Time Patient Seen: 11:43 Interval history: Alberto did have some increase in pain this morning. Tolerating sips of clears but no real appetite. Exam Vital Signs (past 8 hours): - 05/11/24 08:12 Temperature 98.0 F Pulse Rate 93 H Respiratory Rate 16 Blood Pressure 110/71 Pulse Oximetry 96 Oxygen Flow Rate 0 Oxygen Delivery Method Nasal Cannula Oxygen Flow Rate 0 Narrative Exam Narrative: drain is serosanguineous abdomen is soft Objective Labs 05/11/24 04:48 05/11/24 04:48 Labs: Laboratory Results - last 24 hr 05/11/24 04:48 WBC 10.0 RBC 3.78 L Hgb 11.5 L Hct 33.3 L MCV 88.3 MCH 30.5 MCHC 34.5 RDW 15.9 H Plt Count 412 H Neut % (Auto) 83.8 H Lymph % (Auto) 6.4 L [place] % (Auto) 7.9 Eos % (Auto) 0.9 L Baso % (Auto) 1.0 Neut # (Auto) 8400 H Lymph # (Auto) 600 L [place] # (Auto) 800 Eos # (Auto) 100 Baso # (Auto) 100 Sodium 132 L Potassium 2.8 L Chloride 102 Carbon Dioxide 23 BUN 14 Creatinine 0.85 Estimated GFR > 60 BUN/Creatinine Ratio 16.5 Glucose 119 H Calcium 7.8 L PFSH Medical History (Updated 05/03/24 @ 12:19 by Jessy Duval RN) Nocturnal hypoxemia Hearing loss SARA (obstructive sleep apnea) (2021) Hypertension Hypothyroidism (acquired) PMR (polymyalgia rheumatica) Tuberculosis (~1999) Surgical History (Updated 05/02/24 @ 10:41 by Jessy Duval RN) H/O vasectomy Hx of LASIK Hx of blepharoplasty Hx of bilateral cataract extraction Hx of tonsillectomy Hx of neck surgery (~1999) Social History household members: spouse Smoking Status: Former smoker alcohol intake: former Assessment & Plan Assessment and plan (1) Diverticulitis large intestine: Qualifiers: Diverticulitis bleeding: without bleeding Diverticulitis complication: with perforation and abscess Qualified Code(s): K57.20 - Diverticulitis of large intestine with perforation and abscess without bleeding Status: Acute Plan progressing appropriately following sigmoid colon resection for diverticulitis continue Charles catheter due to risk for urinary retention from inflammation around the bladder continue drain until output is more serous stop antibiotics and start Lovenox Time-Based Coding :: [TOTAL MINUTES] spent with patient and on the chart (including review of chart, obtaining history, exam, reviewing outside data, placing orders, documenting exam and treatment plan, and counseling patient) on [DATE]. 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
[2024-05-11] MEDS: ENOXAPARIN 40 MG/0.4 ML SYRINGE SUBCUT (12:12)
[2024-05-11 21:00] VITALS: BP 109/65; PULSE 84; RESP 17; TEMP 37.1; O2SAT 94
[2024-05-11] MEDS: DONEPEZIL 5 MG TABLET PO (21:09)
[2024-05-11] MEDS: PRIMIDONE 50 MG TABLET PO (21:09)
[2024-05-11 21:25] VITALS: BP 109/65
[2024-05-12] MEDS: LACTATED RINGERS 1,000 ML 100 ML IV ×2 (03:23→15:39)
[2024-05-12] MEDS: HYDROMORPHONE 0.5 MG INJ IV ×3 (06:00→20:23)
[2024-05-12] MEDS: LEVOTHYROXINE 100 MCG TABLET 200 MCG PO (06:01)
[2024-05-12] MEDS: ACETAMINOPHEN 325 MG TABLET 650 MG PO ×3 (06:01→20:18)
[2024-05-12] MEDS: PANTOPRAZOLE DR 40 MG TABLET PO (06:05)
[2024-05-12 06:34] LABS: BUN Creatinine Ratio 10.4 (6-22); Blood Urea Nitrogen 8 mg/dL (9-20); Calcium 8.2 mg/dL (8.4-10.2); Carbon Dioxide 27 mmol/L (22-32); Chloride 102 mmol/L (98-107); Estimated Glomerular Filt Rate > 60 mL/min (>60); Glucose 103 mg/dL (80-110); HEMOLYSIS < 15 (0-50); Sodium 134 mmol/L (137-145)
[2024-05-12 08:00] VITALS: BP 128/80; PULSE 86; RESP 16; TEMP 36.9; O2SAT 96
[2024-05-12] MEDS: POTASSIUM CHLORIDE 20 MEQ TAB 40 MEQ PO ×2 (09:06→15:38)
[2024-05-12] MEDS: predniSONE 5 MG TABLET 10 MG PO (09:07)
[2024-05-12] MEDS: ESCITALOPRAM 10 MG TABLET 15 MG PO (09:07)
[2024-05-12] MEDS: ENOXAPARIN 40 MG/0.4 ML SYRINGE SUBCUT (09:07)
[2024-05-12] MEDS: hydrOXYzine HCL 25 MG TABLET PO ×2 (09:08→15:36)
[2024-05-12] MEDS: NAPROXEN 250 MG TABLET PO (09:09)
--- NOTE | 2024-05-12 10:36 | DIET.PN1 ---
Dietary Progress Note Assessment: Dietitian f/u Met with pt in room. Pt reporting having appetite. Per team rounds, pt may be advancing to general diet today. Provided educ on lower fiber diet when diet advanced until cleared by surgery to do normal fiber diet. Discussed menu options available that may be better tolerated initially. Pt reports having small meals for last few months and may need time to readjust to larger meals. Discussed small freq meals as needed to meet energy-protein needs and ONS options as needed. Ht: 176.53 cm Wt: 85 kg BMI: 27.2 Last BM: 05/09/24 (05/10/24 13:17) MNA: 14 Rome Score: 20 Diet: 05/10/24 Dinner Clear Liquid Diet Diet Modifications: Labs: RBC 3.78 X10^6/uL (4.5-5.9) L 05/11/24 04:48 Hgb 11.5 g/dL (13.5-17.5) L 05/11/24 04:48 Hct 33.3 % (41-53) L 05/11/24 04:48 Creatinine 0.77 mg/dL (0.66-1.25) 05/12/24 06:00 Electronically Signed by: Pam Murcia 05/12/24 10:36 Clinical Dietitian [address] [address]
--- NOTE | 2024-05-12 11:51 | PM.PNPO.1 ---
Subjective Subjective Date Patient Seen: 05/12/24 Time Patient Seen: 11:51 Interval history: Patient is passing gas and is hungry today. He is feeling well and ambulating well. His KUNAL drain still has some serosanguineous output. Exam Vital Signs (past 8 hours): - 05/12/24 08:00 Temperature 98.4 F Pulse Rate 86 Respiratory Rate 16 Blood Pressure 128/80 Pulse Oximetry 96 Oxygen Flow Rate 0 Oxygen Delivery Method Nasal Cannula Oxygen Flow Rate 0 Narrative Exam Narrative: Incisions were dressed, clean dry and intact Objective Labs 05/11/24 04:48 05/12/24 06:00 Labs: Laboratory Results - last 24 hr 05/12/24 06:00 Sodium 134 L Potassium 3.0 L Chloride 102 Carbon Dioxide 27 BUN 8 L Creatinine 0.77 Estimated GFR > 60 BUN/Creatinine Ratio 10.4 Glucose 103 Calcium 8.2 L PFSH Medical History (Updated 05/03/24 @ 12:19 by Jessy Duval RN) Nocturnal hypoxemia Hearing loss SARA (obstructive sleep apnea) (2021) Hypertension Hypothyroidism (acquired) PMR (polymyalgia rheumatica) Tuberculosis (~1999) Surgical History (Updated 05/02/24 @ 10:41 by Jessy Duval RN) H/O vasectomy Hx of LASIK Hx of blepharoplasty Hx of bilateral cataract extraction Hx of tonsillectomy Hx of neck surgery (~1999) Social History household members: spouse Smoking Status: Former smoker alcohol intake: former Assessment & Plan Post-op Postoperative Procedures: Procedures Operation Date: 05/10/24 07:45 Actual Procedure Side Surgeon p Laparoscopically Assisted Sigmoid Colectomy Not Applicable Tin Barillas MD Postoperative day: 2 Postoperative status: doing well Postoperative status narrative: DC Charles soft diet. Patient complained of poor sleep last night, we will order some options for sleeping aids. Time Spent With Patient Time with patient: less than 15 minutes Quality VTE Deep Vein Thrombosis/Pulmonary Embolism Present on Admission: No
--- NOTE | 2024-05-12 12:07 | CM.DPNOTE ---
DCP Continued: Reviewed EMR and team rounds for pt?s medical status. It is reported that pt is still slowly advancing diet and is anticipating a medical discharge in the next day. No new discharge needs identified at this time. Plan: Anticipating dc home with spouse on Wednesday, 05/13 or when medically cleared. CM Team will continue to follow for coordination of discharge plans. MAGALYS ReyesSW
[2024-05-12 19:49] VITALS: BP 119/75; PULSE 95; RESP 16; TEMP 36.8; O2SAT 96
[2024-05-12] MEDS: ZOLPIDEM 5 MG TABLET 10 MG PO (20:16)
[2024-05-12] MEDS: MELATONIN 3 MG TABLET 9 MG PO (20:16)
[2024-05-12] MEDS: DONEPEZIL 5 MG TABLET PO (20:17)
[2024-05-12] MEDS: PRIMIDONE 50 MG TABLET PO (20:17)
[2024-05-12 20:18] VITALS: BP 119/75; PULSE 72
[2024-05-13] MEDS: LEVOTHYROXINE 100 MCG TABLET 200 MCG PO (06:04)
[2024-05-13] MEDS: HYDROMORPHONE 0.5 MG INJ IV ×2 (06:04→09:40)
[2024-05-13] MEDS: PANTOPRAZOLE DR 40 MG TABLET PO (06:04)
[2024-05-13 06:52] LABS: BUN Creatinine Ratio 13.3 (6-22); Blood Urea Nitrogen 10 mg/dL (9-20); Calcium 8.2 mg/dL (8.4-10.2); Carbon Dioxide 27 mmol/L (22-32); Chloride 102 mmol/L (98-107); Estimated Glomerular Filt Rate > 60 mL/min (>60); Glucose 99 mg/dL (80-110); HEMOLYSIS < 15 (0-50); Potassium 3.1 mmol/L (3.4-5.1); Sodium 136 mmol/L (137-145)
[2024-05-13 08:00] VITALS: BP 156/94; PULSE 96; RESP 15; TEMP 37.1; O2SAT 97
[2024-05-13] MEDS: predniSONE 5 MG TABLET 10 MG PO (09:12)
[2024-05-13] MEDS: ESCITALOPRAM 10 MG TABLET 15 MG PO (09:12)
[2024-05-13] MEDS: NAPROXEN 250 MG TABLET PO (09:12)
--- NOTE | 2024-05-13 09:51 | PM.PNPO.1 ---
Subjective Subjective Date Patient Seen: 05/13/24 Time Patient Seen: 09:51 Interval history: Patient continues to pass gas and tolerating diet. No nausea or vomiting. He has been able to urinate since the catheter has been removed. His drain continues to just be serosanguineous and low volumes, I removed that today. Exam Vital Signs (past 8 hours): - 05/13/24 08:00 Temperature 98.8 F Pulse Rate 96 H Respiratory Rate 15 Blood Pressure 156/94 H Pulse Oximetry 97 Oxygen Delivery Method Nasal Cannula Oxygen Flow Rate 0 Narrative Exam Narrative: Incisions dressed, clean dry and intact. Objective Labs 05/11/24 04:48 05/13/24 05:50 Labs: Laboratory Results - last 24 hr 05/13/24 05:50 Sodium 136 L Potassium 3.1 L Chloride 102 Carbon Dioxide 27 BUN 10 Creatinine 0.75 Estimated GFR > 60 BUN/Creatinine Ratio 13.3 Glucose 99 Calcium 8.2 L PFSH Medical History (Updated 05/03/24 @ 12:19 by Jessy Duval RN) Nocturnal hypoxemia Hearing loss SARA (obstructive sleep apnea) (2021) Hypertension Hypothyroidism (acquired) PMR (polymyalgia rheumatica) Tuberculosis (~1999) Surgical History (Updated 05/02/24 @ 10:41 by Jessy Duval RN) H/O vasectomy Hx of LASIK Hx of blepharoplasty Hx of bilateral cataract extraction Hx of tonsillectomy Hx of neck surgery (~1999) Social History household members: spouse Smoking Status: Former smoker alcohol intake: former Assessment & Plan Post-op Postoperative Procedures: Procedures Operation Date: 05/10/24 07:45 Actual Procedure Side Surgeon p Laparoscopically Assisted Sigmoid Colectomy Not Applicable Tin Barillas MD Postoperative day: 3 Postoperative status: doing well Postoperative status narrative: Order oral oxycodone try to avoid IV pain medication to see if he is appropriate for discharge. Await bowel movement. Hypokalemia, replacement ordered. Postoperative plan: routine post-op care and see orders Quality VTE Deep Vein Thrombosis/Pulmonary Embolism Present on Admission: No
[2024-05-13] MEDS: POTASSIUM CHLORIDE 20 MEQ/15 ML UDC 40 MEQ PO (11:02)
--- NOTE | 2024-05-13 12:18 | PC.NURSE ---
Day shift: Checked dressing again at this time. KUNAL drain was d/c'd and taken out by Dr Vasquez approx 2 hours ago. Dressing covering that KUNAL site is CDI.
[2024-05-13] MEDS: ACETAMINOPHEN 325 MG TABLET 650 MG PO ×2 (13:16→20:14)
[2024-05-13] MEDS: OXYCODONE IR 5 MG TABLET PO ×3 (13:16→21:48)
[2024-05-13] MEDS: MELATONIN 3 MG TABLET 9 MG PO (20:13)
[2024-05-13] MEDS: DONEPEZIL 5 MG TABLET PO (20:13)
[2024-05-13] MEDS: ZOLPIDEM 5 MG TABLET 10 MG PO (20:13)
[2024-05-13] MEDS: hydrOXYzine HCL 25 MG TABLET PO (20:13)
[2024-05-13] MEDS: PRIMIDONE 50 MG TABLET PO (20:13)
[2024-05-13 20:33] VITALS: BP 136/69; PULSE 85; RESP 18; TEMP 36.9; O2SAT 99
[2024-05-14] MEDS: PANTOPRAZOLE DR 40 MG TABLET PO (06:36)
[2024-05-14] MEDS: LEVOTHYROXINE 100 MCG TABLET 200 MCG PO (06:36)
[2024-05-14] MEDS: OXYCODONE IR 5 MG TABLET PO ×2 (06:37→11:52)
[2024-05-14 08:00] VITALS: BP 151/88; PULSE 68; RESP 15; TEMP 36.8; O2SAT 97
[2024-05-14] MEDS: ACETAMINOPHEN 325 MG TABLET 650 MG PO (08:55)
[2024-05-14] MEDS: predniSONE 5 MG TABLET 10 MG PO (08:56)
[2024-05-14] MEDS: NAPROXEN 250 MG TABLET PO (08:58)
[2024-05-14] MEDS: ESCITALOPRAM 10 MG TABLET 15 MG PO (08:58)
--- NOTE | 2024-05-14 11:17 | P.DS_ITS ---
History of Present Illness History of Present Illness Date Patient Seen: 05/14/24 Time Patient Seen: 11:17 Chief complaint: Lap Ass. Sigmoid Colectomy Narrative: 68-year-old white male presents for a lap assisted sigmoid colectomy for perforated diverticulitis with intra-abdominal abscess. He had a drain placed at the time of surgery. Recovered well, tolerated diet, passed gas, drain was removed the day prior to discharge along with a Charles catheter. Patient was voiding well feeling well and appropriate for discharge on postoperative day 4. Discharge Providers Provider Date of admission: 05/10/24 06:06 Discharge Date: 05/14/24 Primary care physician: Santosh Craven MD Discharge provider: Fam Vasquez MD Summary Hospital Course Discharge Diagnosis: Perforated sigmoid diverticulitis with intra-abdominal abscess Hospital Course: 68-year-old white male underwent a lap assisted sigmoid colectomy and drain placement for perforated diverticulitis with intra-abdominal abscess. He had a drain placed at the time of surgery. Recovered well, tolerated diet, passed gas, drain was removed the day prior to discharge along with a Charles catheter. Patient was voiding well feeling well and appropriate for discharge on postoperative day 4. Status at Discharge Cognitive/behavioral status at discharge: oriented Functional status at discharge: independent ambulation Overall status at discharge: patient is back to baseline Time Spent with Patient Time spent: Less than 30 minutes Exam Vital Signs (past 8 hours): - 05/14/24 08:00 Temperature 98.2 F Pulse Rate 68 Respiratory Rate 15 Blood Pressure 151/88 H Pulse Oximetry 97 Oxygen Delivery Method Nasal Cannula Oxygen Flow Rate 0 Narrative Exam Narrative: Gen: NAD, sitting comfortably in bed, appears well HEENT: Sclera are anicteric, head is normocephalic and atraumatic, trachea is midline. CV: RRR, no JVD Resp: clear to auscultation bilaterally, equal chest wall movement bilaterally Abd: soft, nontender, normoactive bowel sounds Ext: no edema, full range of motion Neuro: Cranial nerves II-XII grossly intact, no focal deficits Skin: No erythema or ecchymosis Objective Labs 05/11/24 04:48 05/13/24 05:50 [facility] Medical History (Updated 05/03/24 @ 12:19 by Jessy Duval RN) Nocturnal hypoxemia Hearing loss SARA (obstructive sleep apnea) (2021) Hypertension Hypothyroidism (acquired) PMR (polymyalgia rheumatica) Tuberculosis (~1999) Surgical History (Updated 05/02/24 @ 10:41 by Jessy Duval RN) H/O vasectomy Hx of LASIK Hx of blepharoplasty Hx of bilateral cataract extraction Hx of tonsillectomy Hx of neck surgery (~1999) Social History household members: spouse Smoking Status: Former smoker alcohol intake: former Discharge Assessment & Plan Assessment and Plan Assessment: 1. Perforated sigmoid diverticulitis 2. Intra-abdominal abscess Plan of Treatment: Patient may be discharged home on an easy to chew, soft diet. Ambulate every 2 hours[address] Follow up with Dr. Barillas as scheduled in 1 to 2 weeks Discharge Plan Discharge Plan Patient Disposition: Home Discharge orders & Medications Prescriptions: New oxycodone 5 mg tablet 5 mg PO Q8H PRN (Reason: pain, severe) Qty: 7 0RF methocarbamol 500 mg tablet 500 mg PO QID Qty: 120 0RF Continued etodolac 400 mg tablet extended release 24 hr 400 mg PO DAILY prednisone 5 mg tablet 10 mg PO DAILY testosterone cypionate 200 mg/mL oil 200 mg IM Q30D levothyroxine 150 mcg tablet 200 mcg PO QAM Patient Comments: Pt states he takes 200mcg everyday 05/02/24 Rx Instructions: once daily, everyother day alternate 175mcg and 200mcg donepezil 5 mg tablet 5 mg PO ONCE PM chlorthalidone 25 mg Tablet 25 mg PO DAILY Patient Comments: pt unsure if he takes this, spouse to verify at home escitalopram oxalate 10 mg tablet 15 mg PO DAILY losartan 50 mg tablet 50 mg PO BID fexofenadine 180 mg tablet 180 mg PO DAILY PRN (Reason: allergies) folic acid 1 mg Tablet 1 mg PO DAILY hydroxyzine HCl 25 mg Tablet 25 mg PO QID PRN (Reason: Itching) omeprazole 40 mg capsule,delayed release(DR/EC) 40 mg PO DAILY terbinafine HCl 250 mg tablet 250 mg PO DAILY primidone 50 mg Tablet 50 mg PO BEDTIME ondansetron HCl 4 mg Tablet 4 mg PO Q8H PRN (Reason: Nausea And Vomiting) ketoconazole 2 % Shampoo 1 applic TOPICAL Q OTHER DAY ketoconazole 2 % Cream 1 applic TOPICAL BID mometasone 0.1 % Cream 1 applic TOPICAL DAILY Lactobacillus acidophilus 25 million cell Capsule 25,000,000 cell PO TIDWM Qty: 90 0RF trazodone 50 mg Tablet 50 - 100 mg PO BEDTIME albuterol sulfate 90 mcg/actuation Hfa Aerosol Inhaler 2 puff INHALATION 6XD PRN (Reason: Shortness Of Breath) aspirin 81 mg tablet,delayed release (DR/EC) 81 mg PO DAILY Discontinued neomycin 500 mg tablet 1 g PO TID Qty: 6 0RF Rx Instructions: administer at 1 PM, 2 PM, and 10 PM the day prior to surgery metronidazole 500 mg tablet 500 mg PO TID Qty: 3 0RF Rx Instructions: administer at 1 PM, 2 PM, and 10 PM the day prior to surgery ciprofloxacin HCl [Cipro] 500 mg Tablet 500 mg PO BID hydromorphone [Dilaudid] 4 mg Tablet 4 mg PO Q3H PRN (Reason: Pain) Follow up/Referrals: Santosh Craven MD [Primary Care Provider] - Diet/Activity/Treatments Diet: Regular Diet comment: soft, [id number] foods until your post-op follow-up appointment Activity: No lifting, pushing or pulling over 20 lb Cold/Heat Therapy: May apply heat or ice to the abdomen as needed, 20 minutes on 20 minutes off Skin/Wound/Dressing Care Report to your healthcare provider any signs of infection, such as:: chills, fever, night sweats, increased pain, unusual drainage and unusual redness Visit Report/Discharge Packet Instructions: DI for Prescription Opioid Use Stand Alone Forms: Patient Portal/API, Stroke Signs & Symptoms, Surgery Discharge Discharge Data Primary Care Provider: Santosh Craven Quality VTE Deep Vein Thrombosis/Pulmonary Embolism Present on Admission: No IH PROFEE Charge Codes Discharge inpatient/observation: [id number] ([id number] post-op global)
--- NOTE | 2024-05-14 12:57 | PC.NURSE ---
Discharge note: Discharge instructions given to patient and spouse, discussed importance of F/U with Dr. Barillas as scheduled, new medications, dressing care, dietary changes, and signs of worsening symptoms. Both verbalized understanding of instructions. Patient independently ambulatory, dressed self, tolerating diet, and had BM. Home via private vehicle accompanied by spouse.
--- NOTE | 2024-05-14 15:09 | CM.DPNOTE ---
DC Note Discharge home w/sp today. Close outpatient follow up recommended. No barriers identified by this CM team. IMM provided. AKASH
== END 2024-05-14 12:00 | disposition home or self-care (01) | DRG 329 ==
PROVIDERS: Admitting Provider Surgery; Family Provider Family Medicine; PCP Family Medicine; Referring Provider Surgery; Visit Provider Surgery
PROC: 0DTE0ZZ Resection of Large Intestine, Open Approach (ICD-10-PCS; principal; 2024-05-10 07:45)
DX: K57.20 Diverticulitis of large intestine with perforation and abscess without bleeding (principal); K65.1 Peritoneal abscess; E03.9 Hypothyroidism, unspecified; I10 Essential (primary) hypertension; M35.3 Polymyalgia rheumatica; G47.33 Obstructive sleep apnea (adult) (pediatric); Z79.52 Long term (current) use of systemic steroids; Z87.891 Personal history of nicotine dependence; Z79.890 Hormone replacement therapy
CPT/HCPCS: 36415; 44204; 80048; 82962; 85025; A9270; J0295; J0330; J0666; J1100; J1171; J1650; J1885; J2405; J2704; J3010

== ENCOUNTER → 2025-02-05 16:59 | Outpatient (CLI) | payer MEDICARE, OTHER, SELFPAY ==
[2024-05-10 13:17] VITALS: BMI 27.2
[2025-02-05 18:19] LABS: Add Manual Diff / Slide Review NO; Hematocrit 39.1 % (41-53); Hemoglobin 13.7 g/dL (13.5-17.5); Lymphocytes Absolute Auto 1100 /uL (1100-4500); Mean Corpuscular HGB Conc 34.9 % (30-36); Mean Corpuscular Hemoglobin 29.6 PG (26-34); Mean Corpuscular Volume 84.8 fL (80-100); Platelet Count 352 X10^3/uL (150-400)
== END ==
PROVIDERS: Family Provider Family Medicine; PCP Family Medicine; Referring Provider Family Medicine; Visit Provider Family Medicine
DX: R51.9 Headache, unspecified (principal)
CPT/HCPCS: 36415; 85025; 85651; 86140